=== PATIENT | male | born 1945 | race Caucasian/White ===

== ENCOUNTER 2020-01-28 07:38 | Outpatient (CLI) | payer MEDICARE, SELFPAY ==
[2020-01-28 08:06] LABS: Creatinine Urine 100.37 mg/dL (40-278)
[2020-01-28 08:07] LABS: MALB Creatinine Ratio 49.7 mg/g (0-30); Microalbumin Urine Random 49.9 mg/L
[2020-01-28 08:08] LABS: Hemoglobin A1C 6.8 % (<5.7)
[2020-01-28 09:04] LABS: Alanine Aminotransferase 40 U/L (16-63); Albumin Level 4.2 g/dL (3.4-5.0); Alkaline Phosphatase 81 U/L (46-116); Anion Gap 18.1 mmol/L (7-16); Aspartate Amino Transferase 23 U/L (15-37); Bilirubin,Total 0.5 mg/dL (0.00-1.00); Blood Urea Nitrogen 23 mg/dL (7-18); Calcium 9.4 mg/dL (8.5-10.1); Carbon Dioxide 24 mmol/L (21-32); Chloride 103 mmol/L (98-108); Cholesterol 168 mg/dL (0-200); Estimated Glomerular Filt Rate > 60; Glucose 120 mg/dL (70-99); HDL Direct 40 mg/dL (40-60); LDL Cholesterol Calculated 89 mg/dL (<130); Osmolality Calculated 296 mOsm/kg (285-295); Potassium 4.1 mmol/L (3.5-5.1); Sodium 141 mmol/L (136-145); Triglycerides 197 mg/dL (0-150)
== END 2020-01-28 07:39 | disposition home or self-care (01) ==
PROVIDERS: PCP Family Medicine; Visit Provider Family Medicine
DX: E11.9 Type 2 diabetes mellitus without complications (principal)
CPT/HCPCS: 36415; 80053; 80061; 82043; 83036

== ENCOUNTER 2020-04-17 10:45 | Outpatient (CLI) | payer MEDICARE, SELFPAY ==
--- NOTE | ~2020-04-17 | US_ITS ---
EXAMINATION: US scrotum doppler DATE: 04/17/2020 13:01 INDICATION: Other specified disorders of the male genital organs. TECHNIQUE: Grayscale and Doppler ultrasound images of the testes were obtained. COMPARISON: CT abdomen and pelvis 09/21/2019 FINDINGS: The right testis measures 3.5 x 2.2 x 2.8 cm. The left testis measures 3.8 x 1.8 x 2.2 cm. There is normal vascular flow to both testes. The right epididymis demonstrates cysts measuring up to 6 mm. The left epididymis is normal with normal vascular flow. There is no varicocele or hydrocele. IMPRESSION: 1. Small benign cysts in the right epididymis. Reviewed, dictated and finalized at location A.
[2020-04-17 11:00] LABS: Basophils Absolute Auto 0.03 K/mm3 (0.00-0.10); Basophils Percent Auto 0.4 % (0.0-1.0); Eosinophils Absolute Auto 0.21 K/mm3 (0.02-0.50); Eosinophils Percent Auto 3.1 % (1.0-6.0); Hematocrit 41.5 % (37.0-46.0); Immature Granulocyte Percent A 1.5 % (0.0-0.0); Lymphocytes Absolute Auto 1.36 K/mm3 (1.10-4.50); Lymphocytes Percent Auto 20.3 % (18.0-42.0); Mean Corpuscular HGB Conc 33.7 g/dL (32.0-36.0); Mean Corpuscular Hemoglobin 31.5 pg (27.0-31.0); Mean Corpuscular Volume 93.3 fL (78.0-102.0); Mean Platelet Volume 9.7 fl (8.7-11.0); Monocytes Absolute Auto 0.69 K/mm3 (0.10-0.90); Monocytes Percent Auto 10.3 % (2.0-11.0); Neutrophils Absolute Auto 4.3 K/mm3 (1.7-7.2); Neutrophils Percent Auto 64.4 % (50.0-70.0); Platelet Count Result 193 K/mm3 (150-420); Red Blood Count 4.45 M/mm3 (4.70-6.10); Red Cell Distribution Width 12.6 % (11.6-14.4); White Blood Count 6.7 K/mm3 (4.8-10.8)
[2020-04-17 11:40] LABS: CRP < 0.2 mg/dL (0.0-0.9)
== END 2020-04-17 10:46 | disposition home or self-care (01) ==
PROVIDERS: PCP Family Medicine; Visit Provider Family Medicine
DX: N50.89 Other specified disorders of the male genital organs (principal)
CPT/HCPCS: 36415; 76870; 85025; 86140; 93976

== ENCOUNTER 2020-05-16 07:42 | Outpatient (CLI) | payer MEDICARE, SELFPAY ==
--- NOTE | ~2020-05-16 | US_ITS ---
EXAMINATION: US aorta [facility] DATE: 05/16/2020 09:21 INDICATION: History of nicotine dependence, hypertension, diabetes, obesity, hypercholesterolemia TECHNIQUE: Grayscale, color Doppler, and pulsed Doppler images of the aorta and common iliac arteries were obtained. COMPARISON: None. FINDINGS: Maximum vascular dimensions are as follows: Proximal aorta: 2.6 cm Mid aorta: 2.4 cm Distal aorta: 2.7 cm Right common iliac artery: 1.2 cm Left common iliac artery: 1.3 cm There is no evidence of abdominal aortic aneurysm. IMPRESSION: 1. No sonographic evidence of abdominal aortic aneurysm. Reviewed, dictated and finalized at location A.
[2020-05-16 08:14] LABS: Hemoglobin A1C 6.2 % (<5.7)
== END 2020-05-16 07:43 | disposition home or self-care (01) ==
LOC: CHSIMG 07:44
PROVIDERS: Nurse Practitioner Family; PCP Family Medicine; Visit Provider Family Medicine
DX: Z87.891 Personal history of nicotine dependence (principal); E11.9 Type 2 diabetes mellitus without complications
CPT/HCPCS: 36415; 76706; 83036

== ENCOUNTER 2020-06-25 07:01 | Outpatient (CLI) | payer MEDICARE, SELFPAY ==
[2020-06-25 07:18] LABS: Basophils Absolute Auto 0.04 K/mm3 (0.00-0.10); Basophils Percent Auto 0.6 % (0.0-1.0); Eosinophils Absolute Auto 0.27 K/mm3 (0.02-0.50); Eosinophils Percent Auto 4.1 % (1.0-6.0); Hematocrit 44.5 % (37.0-46.0); Hemoglobin 14.9 g/dL (12.4-15.3); Immature Granulocyte Absolute 0.08 K/mm3 (0.00-0.00); Immature Granulocyte Percent A 1.2 % (0.0-0.0); Lymphocytes Absolute Auto 1.22 K/mm3 (1.10-4.50); Lymphocytes Percent Auto 18.6 % (18.0-42.0); Mean Corpuscular HGB Conc 33.5 g/dL (32.0-36.0); Mean Corpuscular Hemoglobin 31.6 pg (27.0-31.0); Mean Corpuscular Volume 94.5 fL (78.0-102.0); Mean Platelet Volume 10.1 fl (8.7-11.0); Monocytes Absolute Auto 0.75 K/mm3 (0.10-0.90); Monocytes Percent Auto 11.4 % (2.0-11.0); Neutrophils Absolute Auto 4.2 K/mm3 (1.7-7.2); Neutrophils Percent Auto 64.1 % (50.0-70.0); Platelet Count Result 203 K/mm3 (150-420); Red Blood Count 4.71 M/mm3 (4.70-6.10); Red Cell Distribution Width 12.4 % (11.6-14.4); White Blood Count 6.6 K/mm3 (4.8-10.8)
[2020-06-25 08:24] LABS: Alanine Aminotransferase 46 U/L (16-63); Alkaline Phosphatase 88 U/L (46-116); Anion Gap 12.2 mmol/L (7-16); Aspartate Amino Transferase 26 U/L (15-37); Bilirubin,Total 0.3 mg/dL (0.00-1.00); Blood Urea Nitrogen 16 mg/dL (7-18); Calcium 9.1 mg/dL (8.5-10.1); Carbon Dioxide 27 mmol/L (21-32); Chloride 105 mmol/L (98-108); Estimated Glomerular Filt Rate 50; Glucose 127 mg/dL (70-99); Lactate Dehydrogenase 140 U/L (85-227); Osmolality Calculated 293 mOsm/kg (285-295); Potassium 4.2 mmol/L (3.5-5.1); Sodium 140 mmol/L (136-145); Total Protein 6.7 g/dL (6.4-8.2)
== END 2020-06-25 07:02 | disposition home or self-care (01) ==
LOC: CHSLAB 07:03
PROVIDERS: PCP Family Medicine; Visit Provider Internal Medicine Hematology & Oncology
DX: C85.10 Unspecified B-cell lymphoma, unspecified site (principal)
CPT/HCPCS: 36415; 80053; 83615; 85025

== ENCOUNTER 2020-07-30 15:44 | Outpatient (CLI) | payer MEDICARE, SELFPAY ==
[2020-07-30 16:21] LABS: Basophils Absolute Auto 0.05 K/mm3 (0.00-0.10); Basophils Percent Auto 0.6 % (0.0-1.0); Eosinophils Absolute Auto 0.43 K/mm3 (0.02-0.50); Eosinophils Percent Auto 5.5 % (1.0-6.0); Hematocrit 40.5 % (37.0-46.0); Hemoglobin 13.2 g/dL (12.4-15.3); Immature Granulocyte Absolute 0.17 K/mm3 (0.00-0.00); Immature Granulocyte Percent A 2.2 % (0.0-0.0); Lymphocytes Absolute Auto 1.23 K/mm3 (1.10-4.50); Lymphocytes Percent Auto 15.8 % (18.0-42.0); Mean Corpuscular HGB Conc 32.6 g/dL (32.0-36.0); Mean Corpuscular Hemoglobin 31.1 pg (27.0-31.0); Mean Corpuscular Volume 95.3 fL (78.0-102.0); Monocytes Absolute Auto 0.74 K/mm3 (0.10-0.90); Monocytes Percent Auto 9.5 % (2.0-11.0); Neutrophils Absolute Auto 5.2 K/mm3 (1.7-7.2); Neutrophils Percent Auto 66.4 % (50.0-70.0); Platelet Count Result 340 K/mm3 (150-420); Red Blood Count 4.25 M/mm3 (4.70-6.10); Red Cell Distribution Width 12.2 % (11.6-14.4); White Blood Count 7.8 K/mm3 (4.8-10.8)
[2020-07-30 17:05] LABS: Alanine Aminotransferase 32 U/L (16-63); Alkaline Phosphatase 93 U/L (46-116); Anion Gap 7 mmol/L (8-16); Aspartate Amino Transferase 16 U/L (15-37); Bilirubin,Total 0.3 mg/dL (0.00-1.00); Blood Urea Nitrogen 16 mg/dL (7-18); Calcium 9.8 mg/dL (8.5-10.1); Carbon Dioxide 28 mmol/L (21-32); Chloride 106 mmol/L (98-108); Estimated Glomerular Filt Rate > 60; Glucose 112 mg/dL (70-99); Lactate Dehydrogenase 169 U/L (85-227); Osmolality Calculated 294 mOsm/kg (285-295); Potassium 4.2 mmol/L (3.5-5.1); Sodium 141 mmol/L (136-145); Total Protein 6.5 g/dL (6.4-8.2)
[2020-08-01 19:00] LABS: H pylori, Urea Breath NOT DETECTED (NOT DETECTED)
== END 2020-07-30 15:45 | disposition home or self-care (01) ==
PROVIDERS: PCP Family Medicine; Visit Provider Internal Medicine Hematology & Oncology
DX: K21.9 Gastro-esophageal reflux disease without esophagitis (principal); C85.10 Unspecified B-cell lymphoma, unspecified site
CPT/HCPCS: 36415; 80053; 83013; 83615; 85025

== ENCOUNTER 2020-08-20 13:48 | Outpatient (CLI) | payer MEDICARE, SELFPAY ==
--- NOTE | ~2020-08-20 | XR_ITS ---
XR abdomen/kub 1V DATE: 08/20/2020 14:08 INDICATION: Left kidney stone TECHNIQUE: AP projection, 2 views COMPARISON: 09/21/[address] abdomen pelvis FINDINGS: There are 2 calcifications overlying the mid left kidney, measuring approximately 2.5 x 5 a nd 6 x 10 mm dimension, both present on 09/21/2019 CT abdomen pelvis examination. No right renal calcification is evident. No evidence of ureteral calcification. There is a calcified pelvic phlebolith on the left. The psoas shadows are intact. No visceromegaly is evident. There is mild levoscoliosis and multilevel degenerative disc disease of the lumbar spine. There is fu sarah at L4-5 interspace. There is no evidence of bowel obstruction. There is a prominent amount of fecal material in the right colon. IMPRESSION: Stable left nephrolithiasis since 09/21/2019 Reviewed, dictated and finalized at Location A. Reviewed, dictated and finalized at location B.
== END 2020-08-20 13:49 | disposition home or self-care (01) ==
LOC: ANHIMG 13:57
PROVIDERS: PCP Family Medicine; Visit Provider Urology
DX: N20.0 Calculus of kidney (principal)
CPT/HCPCS: 74018

== ENCOUNTER 2020-09-04 07:47 | Outpatient (CLI) | payer MEDICARE, SELFPAY ==
[2020-09-04] MEDS: HEPARIN SOD FLUSH 500 UNITS/5 ML SYRINGE IV PUSH (08:03)
--- NOTE | 2020-09-04 08:07 | PC.NURSE ---
Patient here for port flush. Port flush completed. Tolerated well. Safe exit of hospital. Will call when needs port flush again. to make an appointment. Lots going on with his 's illness.
== END 2020-09-04 07:48 | disposition home or self-care (01) ==
PROVIDERS: PCP Family Medicine; Visit Provider Internal Medicine Hematology & Oncology
DX: C85.10 Unspecified B-cell lymphoma, unspecified site (principal)
CPT/HCPCS: 96523

== ENCOUNTER 2020-10-27 11:24 | Outpatient (CLI) | payer MEDICARE, SELFPAY ==
[2020-10-27 12:00] LABS: Basophils Absolute Auto 0.05 K/mm3 (0.00-0.10); Basophils Percent Auto 0.7 % (0.0-1.0); Eosinophils Absolute Auto 0.21 K/mm3 (0.02-0.50); Eosinophils Percent Auto 2.8 % (1.0-6.0); Hematocrit 44.7 % (37.0-46.0); Hemoglobin 14.5 g/dL (12.4-15.3); Immature Granulocyte Absolute 0.06 K/mm3 (0.00-0.00); Immature Granulocyte Percent A 0.8 % (0.0-0.0); Lymphocytes Absolute Auto 1.46 K/mm3 (1.10-4.50); Lymphocytes Percent Auto 19.7 % (18.0-42.0); Mean Corpuscular HGB Conc 32.4 g/dL (32.0-36.0); Mean Corpuscular Hemoglobin 30.5 pg (27.0-31.0); Mean Corpuscular Volume 93.9 fL (78.0-102.0); Mean Platelet Volume 10.3 fl (8.7-11.0); Monocytes Absolute Auto 0.67 K/mm3 (0.10-0.90); Platelet Count Result 251 K/mm3 (150-420); Red Blood Count 4.76 M/mm3 (4.70-6.10); Red Cell Distribution Width 12.8 % (11.6-14.4); White Blood Count 7.4 K/mm3 (4.8-10.8)
[2020-10-27 13:01] LABS: Alanine Aminotransferase 68 U/L (16-63); Albumin Level 4.1 g/dL (3.4-5.0); Alkaline Phosphatase 111 U/L (46-116); Anion Gap 11 mmol/L (8-16); Aspartate Amino Transferase 36 U/L (15-37); Bilirubin,Total 0.4 mg/dL (0.00-1.00); Blood Urea Nitrogen 18 mg/dL (7-18); Calcium 9.9 mg/dL (8.5-10.1); Carbon Dioxide 25 mmol/L (21-32); Chloride 104 mmol/L (98-108); Estimated Glomerular Filt Rate > 60; Glucose 126 mg/dL (70-99); Lactate Dehydrogenase 251 U/L (85-227); Osmolality Calculated 293 mOsm/kg (285-295); Potassium 5.1 mmol/L (3.5-5.1); Sodium 140 mmol/L (136-145); Total Protein 6.9 g/dL (6.4-8.2)
== END 2020-10-27 11:25 | disposition home or self-care (01) ==
PROVIDERS: PCP Family Medicine; Visit Provider Internal Medicine Hematology & Oncology
DX: C85.10 Unspecified B-cell lymphoma, unspecified site (principal)
CPT/HCPCS: 36415; 80053; 83615; 85025

== ENCOUNTER 2020-11-03 15:52 | Outpatient (CLI) | payer MEDICARE, SELFPAY ==
[2020-11-03 16:44] LABS: Hemoglobin A1C 7.3 % (<5.7)
== END 2020-11-03 15:53 | disposition home or self-care (01) ==
PROVIDERS: PCP Family Medicine; Visit Provider Family Medicine
DX: E11.9 Type 2 diabetes mellitus without complications (principal)
CPT/HCPCS: 36415; 83036

== ENCOUNTER 2020-12-13 00:14 | Outpatient (CLI) | payer MEDICARE, SELFPAY ==
[2020-12-14 00:21] LABS: SARS-CoV-2 RNA PCR Negative
== END 2020-12-13 00:15 | disposition home or self-care (01) ==
LOC: ANHCOVIDDT 00:14
PROVIDERS: PCP Family Medicine; Visit Provider Internal Medicine Gastroenterology
DX: Z01.812 Encounter for preprocedural laboratory examination (principal); Z20.822 Contact with and (suspected) exposure to COVID-19
CPT/HCPCS: C9803; U0003; U0005

== ENCOUNTER 2020-12-16 00:09 | Day surgery (SDC) | payer MEDICARE, SELFPAY ==
[2020-12-16 06:48] LABS: Glucose Point of Care 143 (65-105)
[2020-12-16 07:19] VITALS: BP 153/84; PULSE 68; RESP 18; TEMP 37; O2SAT 98
[2020-12-16 07:21] VITALS: BMI 33.6
[2020-12-16] MEDS: LACTATED RINGERS 1,000 ML 150 ML IV CONT (07:26)
--- NOTE | 2020-12-16 07:52 | WPDANESEPPF ---
Anes - Initial Pre Proc Eval Procedure: Operation Date: 12/16/20 10:00 Proposed Procedures p Screening Colonoscopy - Rafa Fuentes MD Date/Time: 12/16/20 07:52 Surgeon: Rafa Fuentes MD Pre Op Diagnosis: hx colon polyps Patient Data Age: 75 Gender: M Height: 1.75 m Weight: 103.4 kg Last Vital Signs Temp 37.0 C 12/16/20 07:19 Pulse 68 12/16/20 07:19 Resp 18 12/16/20 07:19 BP 153/84 H 12/16/20 07:19 Pulse Ox 98 12/16/20 07:19 Allergies Allergy/AdvReac Type Severity Reaction Status Date / Time No Known Allergies Allergy Verified 12/16/20 07:13 Home Medications Medication Instructions Recorded Confirmed Type finasteride 5 mg tablet 5 mg PO DAILY 01/25/20 History hydrocortisone 2.5 % topical 1 applic TOPICAL BID #453.6 gm 04/16/20 04/16/20 Rx ointment losartan 50 mg tablet See Rx Instructions .ROUTE 07/14/20 Rx .COMPLEX #90 tablet metformin 1,000 mg tablet See Rx Instructions .ROUTE 07/14/20 Rx .COMPLEX #180 tablet simvastatin 40 mg tablet See Rx Instructions .ROUTE 07/14/20 Rx .COMPLEX #90 tablet tamsulosin 0.4 mg capsule See Rx Instructions .ROUTE 07/14/20 Rx .COMPLEX #180 cap furosemide 20 mg tablet 20 mg PO QAM PRN #60 tablet 11/03/20 11/03/20 Rx amlodipine 10 mg tablet See Rx Instructions .ROUTE 11/04/20 Rx .COMPLEX #90 tablet pantoprazole 40 mg tablet,delayed See Rx Instructions .ROUTE 12/12/20 Rx release .COMPLEX #90 tablet Laboratory Tests 12/16/20 06:46 POC Capillary Glucose 143 mg/dl H mg/dl (65-105) Patient hx anesthesia problems: none Family hx anesthesia problems: none PMFSH Past Medical History Medical History B-cell lymphoma BPH (benign prostatic hyperplasia) DM2 (diabetes mellitus, type 2) GERD (gastroesophageal reflux disease) Hyperlipidemia Hypertension Osteoarthritis Overweight Surgical History Surgical History History of laminectomy History of total right knee replacement (TKR) History of umbilical hernia repair Hx of cataract surgery Family History Family History Mother Family history of type 2 diabetes mellitus Family history of obesity Brother Family history of malignant neoplasm of bone Sister Family history of type 2 diabetes mellitus Father Alcoholism Other Diabetes mellitus Hypertension Social History Social History Smoking status: Former smoker Tobacco type: cigarettes Smoking end date: 07/28/00 Additional smoking assessment comments: Quit 1999 Alcohol intake: current Substance use: never Additional living arrangements comments: . 3 adult children. 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 Anes - Eval Final PreProcedure Day of Procedure 12/16/20 07:52 Patient weight: obese Heart: regular rate and rhythm Lungs: clear to auscultation and normal air movement Airway: Mallampati scale class II Neurological: alert and oriented Last oral intake: >/= 8 hours ASA classification: III Emergent: no Anesthetic plan: proceed Anesthesia type and monitoring: general GIVS Informed Consent: The patient's anesthetic plan and its attendant risks and benefits were discussed with the patient/family/POA. Questions were solicited and answers provided to the satisfaction of the patient/family/POA.
--- NOTE | 2020-12-16 07:57 | WPDGICN ---
Assessment and Plan Assessment and plan (1) History of colon polyps: Code(s): Z86.010 - Personal history of colonic polyps Status: Acute Assessment and Plan: Patient has had colon polyps on previous examinations. Plan is for surveillance colonoscopy now and at 3 year intervals in the future. (2) B-cell lymphoma: Code(s): C85.10 - Unspecified B-cell lymphoma, unspecified site Status: Acute Assessment and Plan: Patient has been followed for lymphoma in will continue be monitored by Oncology Service. GI Consult Note Consult date/time: 12/16/20 07:57 HPI: Shreyas Dyer is a 75 year old male Presents for surveillance colonoscopy. Patient has a history of recurrent colon polyps in the past. Most recent exam was 3 years ago. Patient has had multiple colon polyps on several previous colonoscopies. Patient states his current weight appetite bowel movements are normal. He denies abdominal pain. He has had no bleeding. Past medical history is significant for lymphoma. He states he underwent an exploratory surgery in June of 2020 but no evidence of active lymphoma was identified. Also during the last year his has as well as his eldest daughter. Apparently as a consequence of COVID. Review of Systems Review of Systems: All systems reviewed & are unremarkable except as noted in HPI and below PMFSH Past Medical History Medical History (Updated 12/16/20 @ 07:59 by Rafa Fuentes MD) B-cell lymphoma BPH (benign prostatic hyperplasia) DM2 (diabetes mellitus, type 2) GERD (gastroesophageal reflux disease) Hyperlipidemia Hypertension Osteoarthritis Overweight Surgical History Surgical History History of laminectomy History of total right knee replacement (TKR) History of umbilical hernia repair Hx of cataract surgery Family History Family History Mother Family history of type 2 diabetes mellitus Family history of obesity Brother Family history of malignant neoplasm of bone Sister Family history of type 2 diabetes mellitus Father Alcoholism Other Diabetes mellitus Hypertension Social History Social History Smoking status: Former smoker Tobacco type: cigarettes Smoking end date: 07/28/00 Additional smoking assessment comments: Quit 1999 Alcohol intake: current Substance use: never Additional living arrangements comments: . 3 adult children. 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 Meds Home Medications and Allergies Home Medications Medication Instructions Recorded Confirmed Type finasteride 5 mg tablet 5 mg PO DAILY 01/25/20 History hydrocortisone 2.5 % topical 1 applic TOPICAL BID #453.6 gm 04/16/20 04/16/20 Rx ointment losartan 50 mg tablet See Rx Instructions .ROUTE 07/14/20 Rx .COMPLEX #90 tablet metformin 1,000 mg tablet See Rx Instructions .ROUTE 07/14/20 Rx .COMPLEX #180 tablet simvastatin 40 mg tablet See Rx Instructions .ROUTE 07/14/20 Rx .COMPLEX #90 tablet tamsulosin 0.4 mg capsule See Rx Instructions .ROUTE 07/14/20 Rx .COMPLEX #180 cap furosemide 20 mg tablet 20 mg PO QAM PRN #60 tablet 11/03/20 11/03/20 Rx amlodipine 10 mg tablet See Rx Instructions .ROUTE 11/04/20 Rx .COMPLEX #90 tablet pantoprazole 40 mg tablet,delayed See Rx Instructions .ROUTE 12/12/20 Rx release .COMPLEX #90 tablet Allergies Allergy/AdvReac Type Severity Reaction Status Date / Time No Known Allergies Allergy Verified 12/16/20 07:13 Vital Signs Vital Signs - 24 hr 12/16/20 07:19 Temperature 98.6 F Pulse Rate 68 Respiratory Rate 18 Blood Pressure 153/84 H Pulse Oximetry 98 Exam Narrative: Exam Narrative: Physical exam reveals patient to be alert. Vital signs stable.
[2020-12-16 08:23] VITALS: BP 120/66; PULSE 57; RESP 18; O2SAT 98
[2020-12-16 08:33] VITALS: BP 123/82; PULSE 62; RESP 18; O2SAT 96
[2020-12-16 08:43] VITALS: BP 149/83; PULSE 55; RESP 18; O2SAT 97
== END 2020-12-16 09:16 | disposition home or self-care (01) ==
PROVIDERS: PCP Family Medicine; Visit Provider Internal Medicine Gastroenterology
PROC: 0DJD8ZZ Inspection of Lower Intestinal Tract, Via Natural or Artificial Opening Endoscopic (ICD-10-PCS; CPT 45378; principal; 2020-12-16 10:00)
DX: Z12.11 Encounter for screening for malignant neoplasm of colon (principal); D12.4 Benign neoplasm of descending colon; K63.5 Polyp of colon; K64.8 Other hemorrhoids; K57.30 Diverticulosis of large intestine without perforation or abscess without bleeding; C85.10 Unspecified B-cell lymphoma, unspecified site; N40.0 Benign prostatic hyperplasia without lower urinary tract symptoms; E11.9 Type 2 diabetes mellitus without complications; I10 Essential (primary) hypertension; E78.5 Hyperlipidemia, unspecified; K21.9 Gastro-esophageal reflux disease without esophagitis; M19.90 Unspecified osteoarthritis, unspecified site; Z87.891 Personal history of nicotine dependence; Z79.84 Long term (current) use of oral hypoglycemic drugs
CPT/HCPCS: 45385; 88305; J2001; J2704; J7120

== ENCOUNTER 2021-01-13 09:22 | Outpatient (CLI) | payer MEDICARE, SELFPAY ==
[2021-01-13] MEDS: HEPARIN SOD FLUSH 500 UNITS/5 ML SYRINGE IV PUSH (09:44)
== END 2021-01-13 09:23 | disposition home or self-care (01) ==
PROVIDERS: PCP Family Medicine; Visit Provider Internal Medicine Hematology & Oncology
DX: Z45.2 Encounter for adjustment and management of vascular access device (principal); C85.10 Unspecified B-cell lymphoma, unspecified site
CPT/HCPCS: 96523

== ENCOUNTER 2021-05-05 07:39 | Outpatient (CLI) | payer MEDICARE, SELFPAY ==
[2021-05-05 07:49] LABS: Basophils Absolute Auto 0.04 K/mm3 (0.00-0.10); Basophils Percent Auto 0.6 % (0.0-1.0); Eosinophils Absolute Auto 0.23 K/mm3 (0.02-0.50); Eosinophils Percent Auto 3.6 % (1.0-6.0); Hematocrit 40.8 % (37.0-46.0); Hemoglobin 13.5 g/dL (12.4-15.3); Immature Granulocyte Absolute 0.07 K/mm3 (0.00-0.00); Immature Granulocyte Percent A 1.1 % (0.0-0.0); Lymphocytes Absolute Auto 1.59 K/mm3 (1.10-4.50); Lymphocytes Percent Auto 24.8 % (18.0-42.0); Mean Corpuscular HGB Conc 33.1 g/dL (32.0-36.0); Mean Corpuscular Hemoglobin 30.8 pg (27.0-31.0); Mean Corpuscular Volume 93.2 fL (78.0-102.0); Mean Platelet Volume 10.1 fl (8.7-11.0); Monocytes Absolute Auto 0.64 K/mm3 (0.10-0.90); Neutrophils Absolute Auto 3.8 K/mm3 (1.7-7.2); Neutrophils Percent Auto 59.9 % (50.0-70.0); Platelet Count Result 197 K/mm3 (150-420); Red Blood Count 4.38 M/mm3 (4.70-6.10); Red Cell Distribution Width 12.3 % (11.6-14.4); White Blood Count 6.4 K/mm3 (4.8-10.8)
[2021-05-05 08:23] LABS: Alanine Aminotransferase 45 U/L (16-63); Albumin Level 3.9 g/dL (3.4-5.0); Alkaline Phosphatase 91 U/L (46-116); Anion Gap 9 mmol/L (8-16); Aspartate Amino Transferase 20 U/L (15-37); Bilirubin,Total 0.4 mg/dL (0.00-1.00); Blood Urea Nitrogen 18 mg/dL (7-18); Calcium 9.6 mg/dL (8.5-10.1); Carbon Dioxide 26 mmol/L (21-32); Chloride 107 mmol/L (98-108); Estimated Glomerular Filt Rate > 60; Glucose 138 mg/dL (70-99); Lactate Dehydrogenase 147 U/L (85-227); Osmolality Calculated 297 mOsm/kg (285-295); Potassium 3.9 mmol/L (3.5-5.1); Sodium 142 mmol/L (136-145); Total Protein 6.6 g/dL (6.4-8.2)
== END 2021-05-05 07:40 | disposition home or self-care (01) ==
LOC: CHSLAB 07:40
PROVIDERS: PCP Family Medicine; Visit Provider Internal Medicine Hematology & Oncology
DX: C85.10 Unspecified B-cell lymphoma, unspecified site (principal)
CPT/HCPCS: 36415; 80053; 83615; 85025

== ENCOUNTER 2021-07-01 08:35 | Outpatient (CLI) | payer MEDICARE, SELFPAY ==
--- NOTE | ~2021-07-01 | XR_ITS ---
XR lumbar spine 6V w bending DATE: 07/01/2021 09:06 INDICATION: Low back pain, muscle spasms TECHNIQUE: AP, lateral, bilateral oblique views. Flexion and extension lateral views. COMPARISON: 09/21/2019 CT abdomen pelvis FINDINGS: There is straightening of the lumbar spine on lateral view with loss of lumbar lordosis. There is mild rotatory levoscoliosis of the lumbar spine. Normal alignment of lumbar spine with no evidence of instability on flexion or extension. There is moderately severe degenerative disc disease at L1-2 and L2-3 and severe degenerative disease at L3-4 and L5-S1. There is fusion at the interspace at L4-5. No fracture or bone destruction is evident. The sacroiliac joints appear normal. There is fusiform ectasia of the distal abdominal aorta. Several calcifications overlie the left kidn ey, consistent with left nephrolithiasis documented on 09/21/2019 CT abdomen pelvis examination. IMPRESSION: Multilevel degenerative disc disease, most severe at L3-4 and L5-S1 Fusion at the L4-5 interspace Reviewed, dictated and finalized at location A.
== END 2021-07-01 08:36 | disposition home or self-care (01) ==
LOC: CHSIMG 08:37
PROVIDERS: PCP Family Medicine; Visit Provider Family Medicine
DX: M54.5 Low back pain (principal); M41.50 Other secondary scoliosis, site unspecified; M47.9 Spondylosis, unspecified
CPT/HCPCS: 72114

== ENCOUNTER 2021-10-20 13:42 | Outpatient (CLI) | payer MEDICARE, SELFPAY ==
[2021-10-20 13:58] LABS: Basophils Absolute Auto 0.05 K/mm3 (0.00-0.10); Basophils Percent Auto 0.7 % (0.0-1.0); Eosinophils Absolute Auto 0.19 K/mm3 (0.02-0.50); Eosinophils Percent Auto 2.7 % (1.0-6.0); Hematocrit 41.1 % (37.0-46.0); Hemoglobin 13.7 g/dL (12.4-15.3); Immature Granulocyte Absolute 0.05 K/mm3 (0.00-0.00); Immature Granulocyte Percent A 0.7 % (0.0-0.0); Lymphocytes Absolute Auto 1.84 K/mm3 (1.10-4.50); Lymphocytes Percent Auto 26.2 % (18.0-42.0); Mean Corpuscular HGB Conc 33.3 g/dL (32.0-36.0); Mean Corpuscular Hemoglobin 31.9 pg (27.0-31.0); Mean Corpuscular Volume 95.6 fL (78.0-102.0); Mean Platelet Volume 10.2 fl (8.7-11.0); Monocytes Absolute Auto 0.66 K/mm3 (0.10-0.90); Monocytes Percent Auto 9.4 % (2.0-11.0); Neutrophils Absolute Auto 4.2 K/mm3 (1.7-7.2); Neutrophils Percent Auto 60.3 % (50.0-70.0); Platelet Count Result 197 K/mm3 (150-420); Red Cell Distribution Width 12.3 % (11.6-14.4)
[2021-10-20 14:39] LABS: Alanine Aminotransferase 48 U/L (16-63); Albumin Level 3.8 g/dL (3.4-5.0); Alkaline Phosphatase 84 U/L (46-116); Anion Gap 13 mmol/L (8-16); Aspartate Amino Transferase 20 U/L (15-37); Bilirubin,Total 0.4 mg/dL (0.00-1.00); Blood Urea Nitrogen 14 mg/dL (7-18); Calcium 8.5 mg/dL (8.5-10.1); Carbon Dioxide 25 mmol/L (21-32); Chloride 108 mmol/L (98-108); Estimated Glomerular Filt Rate 55; Glucose 151 mg/dL (70-99); Lactate Dehydrogenase 153 U/L (85-227); Osmolality Calculated 305 mOsm/kg (285-295); Potassium 3.5 mmol/L (3.5-5.1); Sodium 146 mmol/L (136-145); Total Protein 6.4 g/dL (6.4-8.2)
== END 2021-10-20 13:43 | disposition home or self-care (01) ==
LOC: CHSLAB 13:44
PROVIDERS: PCP Family Medicine; Visit Provider Internal Medicine Hematology & Oncology
DX: C85.18 Unspecified B-cell lymphoma, lymph nodes of multiple sites (principal)
CPT/HCPCS: 36415; 80053; 83615; 85025

== ENCOUNTER 2022-01-21 08:50 | Outpatient (CLI) | payer MEDICARE, SELFPAY ==
[2022-01-21 09:09] VITALS: BP 130/74; PULSE 80; RESP 16; TEMP 36.3; O2SAT 98; BMI 29.5
--- NOTE | 2022-01-21 09:13 | PC.NURSE ---
Patient here for monthly port flush. No concerns voiced. Port flush administered see JAN. Tolerated well. Safe exit of hospital. Will return next month-patient will call few days ahead for appointment.
[2022-01-21] MEDS: HEPARIN SODIUM LOCK FLUSH 500 UNITS/5 ML SYRINGE IV PUSH (09:16)
== END 2022-01-21 08:51 | disposition home or self-care (01) ==
LOC: CHSLAB 08:55 → CHSTREATRM 09:01
PROVIDERS: PCP Family Medicine; Visit Provider Internal Medicine Hematology & Oncology
DX: Z45.2 Encounter for adjustment and management of vascular access device (principal); C85.10 Unspecified B-cell lymphoma, unspecified site
CPT/HCPCS: 96523

== ENCOUNTER 2022-02-08 07:43 | Outpatient (CLI) | payer MEDICARE, SELFPAY ==
--- NOTE | 2022-02-08 08:30 | EST_ITS ---
Patient Info Name: Shreyas Dyer Age: 76 years : 1945 Gender: Male Ht: 69 in Wt: 228 lbs BSA: 2.28 m2 HR: 49 bpm BP: 137 / 77 mmHg Heart Rhythm: Bradycardia Technical Quality: Excellent Exam Date: 02/08/2022 8:41 AM Exam Location: [facility] Patient Status: Outpatient Admit Date: 02/08/2022 Staff Ordering Physician: Geovany Jackson DO Attending Provider: Geovany Jackson DO Exercise Technologist: Hawa Lim CRT Exercise Physician: Kat Marin CEP Exam Type: CA stress radha w NM Study Info Indications SOB - A nuclear stress test was performed. History/Risk Factors Hypertension: Yes Diabetes Mellitus: Yes Tobacco Use: Current - Frequency Unknown History/Risk Factors HTN, Diabetes, Current Smoker. Summary 1. 1. Negative lexiscan stress test for ischemic ST changes by ECG criteria. 2. 2. Stable hemodynamics throughout the test. 3. 3. Nuclear scan to follow and will be reported separately. Please correlate with it. Protocol: LEXISCAN Stress ECG Details Stage: REST Duration (min): 1 min : 21 sec HR (bpm): 49 SBP (mmHg): 137 DBP (mmHg): 77 Stage: REST Duration (min): 6 min : 25 sec HR (bpm): 53 SBP (mmHg): 137 DBP (mmHg): 77 Stage: STAGE 1 Duration (min): 0 min : 6 sec HR (bpm): 56 SBP (mmHg): 137 DBP (mmHg): 77 Stage: RECOVERY Duration (min): 0 min : 54 sec HR (bpm): 60 SBP (mmHg): 137 DBP (mmHg): 77 Stage: RECOVERY Duration (min): 1 min : 54 sec HR (bpm): 75 SBP (mmHg): 137 DBP (mmHg): 77 Stage: RECOVERY Duration (min): 2 min : 54 sec HR (bpm): 67 SBP (mmHg): 134 DBP (mmHg): 82 Stage: RECOVERY Duration (min): 3 min : 54 sec HR (bpm): 64 SBP (mmHg): 132 DBP (mmHg): 80 Stage: RECOVERY Duration (min): 4 min : 54 sec HR (bpm): 60 SBP (mmHg): 126 DBP (mmHg): 80 Stage: RECOVERY Duration (min): 5 min : 54 sec HR (bpm): 60 SBP (mmHg): 126 DBP (mmHg): 78 Stage: RECOVERY Duration (min): 6 min : 10 sec HR (bpm): 60 SBP (mmHg): 126 DBP (mmHg): 78 Rest HR: 53 bpm Peak HR: 75 bpm Rest Sys BP: 137 mmHg Peak Sys BP: 134 mmHg Max Pred HR: 146 bpm % Max Pred HR: 51 % Target HR: 124 bpm Max RPP: 10,050 bpm*mmHg BP Response: Normal blood pressure response Termination Reason: Completed Protocol Cardiac Symptoms: None Total Time: 0 min : 6 sec Rest Adrian BP: 77 mmHg Peak Adrian BP: 82 mmHg Total Dose: 0.4 mg Resting ECG Sinus bradycardia, IRBBB. Stress ECG No abnormal ST/T wave changes with exercise. Arrhythmias Occasional PVCs. Report Signatures
--- NOTE | 2022-02-08 10:44 | WPDCARIOSTRE ---
Nuclear Stress Test INDICATIONS Indications: BUTLER PROCEDURE Procedure Performed: Myocardial Perf Spect-Multi Procedure: Patient underwent a lexiscan stress test and immediately was injected with 34.4 mCi of cardiolyte. Multiple tomographic images were obtained. These are of good quality. There is evidence of moderate size, severe inferior perfusion defect during stress imaging. A separate resting images were obtained after patient was injected with 10.3 mCi of cardiolyte. Multiple tomographic images were obtained. These are of good quality. There is evidence of small size, mild inferior perfusion defect during rest imaging. CONCLUSION Conclusion: 1. Abnormal myocardial perfusion imaging demonstrating moderate size, severe inferior perfusion defect during stress imaging suggesting reversible ischemia. 2. Left ventriculogram demonstrates normal measured ejection fraction of 62% with no wall motion abnormalities. 3. TID score is normal at 1.03.
== END 2022-02-08 07:44 | disposition home or self-care (01) ==
LOC: CHSIMG 07:45
PROVIDERS: PCP Family Medicine; Visit Provider Family Medicine
DX: R68.89 Other general symptoms and signs (principal); R06.02 Shortness of breath
CPT/HCPCS: 78452; 93017; A9502; J2785

== ENCOUNTER 2022-02-09 10:46 | Outpatient (CLI) | payer MEDICARE, SELFPAY ==
--- NOTE | ~2022-02-09 | US_ITS ---
EXAMINATION: US arterial ankle brachial ind DATE: 02/09/2022 11:14 INDICATION: Peripheral arterial disease with intermittent claudication. Type 2 diabetes with hyperten sarah. TECHNIQUE: Segmental pressures and plethysmographic and Doppler waveforms of the brachial and lower e xtremity arteries were obtained. COMPARISON: 01/16/2019 FINDINGS: Right and left brachial artery pressures of 130 mm Hg and 118 mm Hg, respectively, are concordant (no rmal difference <= 30 mmHg). The right ankle-brachial index (DIONNA) is 1.15 (normal >= 0.9-1.0). The right great toe-brachial index (TBI) is 0.90 (normal >= 0.65). Arterial Doppler waveforms are biphasic at both the right posterior t ibial and dorsalis pedis arteries. The left DIONNA is 1.15. The left TBI is 1.14. Arterial Doppler waveforms are biphasic with brisk systol ic upstrokes at both the left posterior tibial and dorsalis pedis arteries. IMPRESSION: 1. No significant arterial occlusive disease to either lower limb with normal bilateral ABIs and TBIs Reviewed, dictated and finalized at location A. IMPRESSION: 1. No significant arterial occlusive disease to either lower limb with normal b ilateral ABIs and TBIs
== END 2022-02-09 10:47 | disposition home or self-care (01) ==
LOC: CHSIMG 10:48
PROVIDERS: PCP Family Medicine; Visit Provider Family Medicine
DX: E11.59 Type 2 diabetes mellitus with other circulatory complications (principal); I15.2 Hypertension secondary to endocrine disorders
CPT/HCPCS: 93922

== ENCOUNTER 2022-02-26 07:04 | Outpatient (CLI) | payer MEDICARE, SELFPAY ==
[2022-02-26 07:25] LABS: Basophils Absolute Auto 0.05 K/mm3 (0.00-0.10); Basophils Percent Auto 0.6 % (0.0-1.0); Eosinophils Absolute Auto 0.35 K/mm3 (0.02-0.50); Eosinophils Percent Auto 4.5 % (1.0-6.0); Hematocrit 44.5 % (37.0-46.0); Hemoglobin 14.2 g/dL (12.4-15.3); Immature Granulocyte Absolute 0.08 K/mm3 (0.00-0.00); Lymphocytes Absolute Auto 1.73 K/mm3 (1.10-4.50); Lymphocytes Percent Auto 22.5 % (18.0-42.0); Mean Corpuscular HGB Conc 31.9 g/dL (32.0-36.0); Mean Corpuscular Volume 97.2 fL (78.0-102.0); Mean Platelet Volume 9.8 fl (8.7-11.0); Monocytes Percent Auto 9.1 % (2.0-11.0); Neutrophils Absolute Auto 4.8 K/mm3 (1.7-7.2); Neutrophils Percent Auto 62.3 % (50.0-70.0); Platelet Count Result 228 K/mm3 (150-420); Red Blood Count 4.58 M/mm3 (4.70-6.10); Red Cell Distribution Width 12.4 % (11.6-14.4); White Blood Count 7.7 K/mm3 (4.8-10.8)
[2022-02-26 07:39] LABS: INR 1.1; Prothrombin Time 11.4 Seconds (9.50-12.10)
[2022-02-26 08:01] LABS: Alanine Aminotransferase 49 U/L (16-63); Albumin Level 4.2 g/dL (3.4-5.0); Alkaline Phosphatase 81 U/L (46-116); Anion Gap 6 mmol/L (8-16); Aspartate Amino Transferase 47 U/L (15-37); Bilirubin,Total 0.4 mg/dL (0.00-1.00); Blood Urea Nitrogen 16 mg/dL (7-18); Calcium 9.7 mg/dL (8.5-10.1); Carbon Dioxide 30 mmol/L (21-32); Chloride 105 mmol/L (98-108); Estimated Glomerular Filt Rate > 60; Glucose 149 mg/dL (70-99); Osmolality Calculated 296 mOsm/kg (285-295); Potassium 4.3 mmol/L (3.5-5.1); Sodium 141 mmol/L (136-145); Total Protein 6.9 g/dL (6.4-8.2)
== END 2022-02-26 07:05 | disposition home or self-care (01) ==
LOC: CHSLAB 07:07
PROVIDERS: PCP Family Medicine; Visit Provider Internal Medicine Cardiovascular Disease
DX: R94.39 Abnormal result of other cardiovascular function study (principal); Z01.810 Encounter for preprocedural cardiovascular examination; R07.9 Chest pain, unspecified
CPT/HCPCS: 36415; 80053; 85025; 85610

== ENCOUNTER 2022-03-02 01:32 | Day surgery (SDC) | payer MEDICARE, SELFPAY ==
[2022-03-01 18:23] VITALS: BMI 32.1
[2022-03-02] VITALS (16 sets, daily range): BP systolic 128–160; BP diastolic 74–95; PULSE 57–65; RESP 12–18; O2SAT 99; BMI 33.0
[2022-03-02 08:35] LABS: Basophils Absolute Auto 0.1 K/mm3 (0.0-0.1); Basophils Percent Auto 0.9 % (0.2-1.2); Eosinophils Absolute Auto 0.3 K/mm3 (0-0.3); Eosinophils Percent Auto 3.8 % (0-4.4); Hematocrit 41.7 % (42.0-52.0); Hemoglobin 13.9 g/dL (14.0-18.0); Immature Granulocyte Absolute 0.09 K/mm3 (0.00-0.031); Immature Granulocyte Percent A 1.3 % (0-0.5); Lymphocytes Absolute Auto 1.77 K/mm3 (0.9-3.2); Lymphocytes Percent Auto 25.1 % (18.3-44.2); Mean Corpuscular HGB Conc 33.3 g/dl (32-36); Mean Corpuscular Hemoglobin 31.7 pg (26-34); Mean Corpuscular Volume 95.2 fl (80-100); Mean Platelet Volume 10.2 fl (7.4-10.4); Monocytes Absolute Auto 0.7 K/mm3 (0.1-0.6); Monocytes Percent Auto 9.4 % (2.6-8.5); Neutrophils Absolute Auto 4.2 K/mm3 (1.3-6.7); Neutrophils Percent Auto 59.5 % (45.5-73.1); Platelet Count Result 227 k/mm3 (150-375); Red Blood Count 4.38 M/mm3 (4.6-6.20); Red Cell Distribution Width 12.5 % (11.5-14.5)
[2022-03-02 08:44] LABS: INR 1.1; Prothrombin Time 14.2 Seconds (11.1-14.7)
[2022-03-02 08:46] LABS: Alanine Aminotransferase 42 U/L (4-50); Albumin Level 4.3 g/dL (3.5-5.1); Alkaline Phosphatase 75 U/L (38-126); Anion Gap 9 mmol/L (8-16); Aspartate Amino Transferase 38 U/L (17-59); Bilirubin,Total 0.6 mg/dL (0.2-1.3); Blood Urea Nitrogen 17 mg/dL (9-20); Calcium 9.4 mg/dL (8.4-10.2); Carbon Dioxide 22 mmol/L (22-30); Chloride 109 mmol/L (98-107); Estimated CRCL calculation 74 ml/min; Estimated Glomerular Filt Rate > 60; Glucose 173 mg/dL (65-110); Potassium 4.3 mmol/L (3.4-5.0); Sodium 140 mmol/L (137-145)
--- NOTE | 2022-03-02 08:57 | WPDMODSED ---
Moderate Sedation Note-Pt Data Patient Data Allergies Allergy/AdvReac Type Severity Reaction Status Date / Time No Known Allergies Allergy Verified 03/02/22 08:35 Home Medications Medication Instructions Recorded Confirmed Type simvastatin 40 mg tablet See Rx Instructions .ROUTE 05/04/21 03/01/22 Rx .COMPLEX #90 tablet losartan 50 mg tablet See Rx Instructions .ROUTE 05/11/21 03/01/22 Rx .COMPLEX #90 tablet tamsulosin 0.4 mg capsule See Rx Instructions .ROUTE 05/11/21 03/01/22 Rx .COMPLEX #180 cap furosemide 20 mg tablet See Rx Instructions .ROUTE 06/08/21 03/01/22 Rx .COMPLEX #90 tablet metformin 1,000 mg tablet See Rx Instructions .ROUTE 06/08/21 03/01/22 Rx .COMPLEX #180 tablet pantoprazole 40 mg tablet,delayed See Rx Instructions .ROUTE 06/15/21 03/01/22 Rx release .COMPLEX #90 tablet cyclobenzaprine 10 mg tablet 10 mg PO TID PRN #30 tablet 07/01/21 03/01/22 Rx sildenafil 50 mg tablet 50 mg PO DAILY PRN #30 tablet 07/01/21 07/01/21 Rx amlodipine 10 mg tablet 10 mg PO DAILY tablet 07/17/21 03/01/22 History finasteride 5 mg tablet See Rx Instructions .ROUTE 08/03/21 03/01/22 Rx .COMPLEX #90 tablet blood sugar diagnostic #100 ea 02/01/22 03/01/22 Rx acetaminophen 1,000 mg PO DAILY 03/01/22 03/01/22 History aspirin 81 mg PO DAILY 03/01/22 03/01/22 History hydrocortisone 1 applic TOPICAL BID PRN 03/01/22 03/01/22 History Current Medications: Active Medications Sodium Chloride (Normal Saline Iv) 500 mls @ 100 mls/hr IV CONT .Q5H EDMOND Sedation/Anesthesia: No previous sedation/anesthesia problems (including family history). [facility] Past Medical History Medical History B-cell lymphoma BPH (benign prostatic hyperplasia) DM2 (diabetes mellitus, type 2) Erectile dysfunction GERD (gastroesophageal reflux disease) Hyperlipidemia Hypertension Osteoarthritis Overweight Surgical History Surgical History History of laminectomy History of total right knee replacement (TKR) History of umbilical hernia repair Hx of cataract surgery Family History Family History Mother Family history of type 2 diabetes mellitus Family history of obesity Brother Family history of malignant neoplasm of bone Sister Family history of type 2 diabetes mellitus Father Alcoholism Other Diabetes mellitus Hypertension Social History Social History Smoking status: Former smoker Tobacco type: cigarettes Second hand tobacco smoke exposure: Yes Additional smoking assessment comments: smoked 1 PPD for over 38 years, quit 22 years ago Alcohol intake: current Alcohol use details: on rare occasion, less than 10 drinks in the last year Substance use: never Living arrangements: alone Additional living arrangements comments: . 3 adult children. 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 Spiritual care concerns: No Mod Sed Physical Exam Physical Exam Pre Procedural Exam: Normal: Airway Hours since solid foods: 10 Hours since liquid intake: 10 Mallampati Classification: class II Internal Medicine - PN: Obj Da Vital Signs Vital Signs: Vital Signs - 24 hr 03/02/22 08:37 Respiratory Rate 16 Blood Pressure 137/75 Pulse Oximetry 99 Meds/Results Medications: Active Medications Generic Name Dose Route Start Last Admin Trade Name Freq PRN Reason Stop Dose Admin Sodium Chloride 500 mls @ 100 mls/hr 03/02/22 08:00 Normal Saline Iv IV CONT .Q5H EDMOND Labs CBC & Chem 7: 03/02/22 08:27 03/02/22 08:27 Labs: Laboratory Results - last 24 hr 03/02/22 03/02/22 03/02/22 08:27 08:27 08:27 WBC 7.0 RBC 4.38 L Hgb 13.9 L Hct 41.7 L MCV 95.2 MCH 31.7 MCHC 33.3 RDW
--- NOTE | 2022-03-02 08:57 | WPDHPUPDATE1 ---
History and Physical Update Update Date/Time: 03/02/22 08:57 History and Physical has been reviewed, including an updated exam of the patient. There are NO changes in the patient's condition. Risks, benefits, and alternatives have been discussed and questions answered. Patient agrees to proceed with procedure.
--- NOTE | 2022-03-02 11:45 | WPDCARDPROC ---
Cardiac Cath Procedure Note Date of procedure:: 03/02/22 Performing physician:: Doug Gracia MD Procedure Procedure note:: CARDIAC CATHETERIZATION AND PERCUTANEOUS CORONARY INTERVENTION REPORT DATE OF PROCEDURE: 03/02/2022 INDICATION FOR PROCEDURE: angina, abnormal MPI BRIEF CLINICAL HISTORY: 76-year-old male with hypertension, diabetes mellitus, dyslipidemia. Patient was referred by Dr. Uriostegui for cardiac catheterization in the setting of chest pain, dyspnea and abnormal MPI. Patient had MPI done on 02/08/2022 which reportedly showed normal LVEF, moderate size, severe inferior perfusion defect. Benefits and risks of the procedure were discussed with the patient in depth, and informed consent was obtained prior to the procedure. Risks of the procedure include but are not limited to vascular complications including groin hematoma, retroperitoneal bleed, vessel perforation; periprocedural FL, cardiac arrhythmias, stroke, contrast induced nephropathy, and . After discussing all the benefits, risks and alternatives, patient was willing to proceed with the procedure. PROCEDURES PERFORMED: 1. Left heart catheterization- Selective left and right coronary angiogram; left ventriculogram and hemodynamic assessment 2. Percutaneous coronary intervention- a) IFR of mid LAD intermediate degree stenosis; b) IFR guided PCI -balloon angioplasty and stenting of mid LAD using a 2.75 x 26 mm Biotronik sirolimus eluting stent 3. Selective right common femoral angiogram and deployment of Angio-Seal hemostatic device 4. Moderate sedation-CPT code 49718 MODERATE SEDATION: Midazolam 2 mg; fentanyl 50 mcg. Start time 1041 , Stop time 1138 ; Total [id number] time 57 minutes; FLOR Lau was trained observer for moderate sedation. ACCESS SITE: Right common femoral artery PROCEDURE NOTE: After obtaining informed consent, patient was brought to catheterization lab and prepped and draped in a usual sterile manner. After local anesthesia with lidocaine, right common femoral artery access was taken with micropuncture needle followed by insertion of a 5 Martiniquais sheath. Selective left and right coronary angiogram was performed using 5 Martiniquais JL4 and JR4 catheters respectively. Orthogonal views were taken. Next, a 5 Martiniquais pigtail catheter was advanced in the LV cavity and was flushed with normal saline. LV pressure measurement was performed. After this, left ventriculogram was performed. The catheter was flushed again, and gradient across the aortic valve was measured on the pullback of the catheter. Selective right common femoral angiogram was performed after PCI followed by successful deployment of Angio-Seal vascular closure device. Patient tolerated procedure well without any immediate procedure related complications. FINDINGS: LEFT MAIN CORONARY: the left main coronary artery is a medium to large caliber vessel, no significant focal stenosis. The vessel trifurcates into LAD, ramus intermedius and left circumflex branches. LEFT ANTERIOR DESCENDING ARTERY: The LAD is a medium caliber vessel, tapers distally and reaches LV apex. Is moderate diffuse disease in the mid segment with focal 50-70% stenosis, best visualized in the RAO17, CAU 21. No significant focal stenosis is seen in the diagonal branches. RAMUS INTERMEDIUS: Medium caliber vessel, no significant focal stenosis. LEFT CIRCUMFLEX ARTERY: Medium caliber vessel, gives rise to medium caliber OM branches without significant focal stenosis. RIGHT CORONARY ARTERY: Medium caliber vessel, minor plaque is in the proximal segment. The vessel is tortuous in the distal segment. It gives rise to small caliber PDA branch and diminutive PL branch. Sluggish blood flow is seen in the RCA. LEFT VENTRICULOGRAM: Preserved LV systolic function, ejection fraction about 60%. LVEDP 10 mmHg. RIGHT COMMON FEMORAL ARTERY: Patent INTERVENTION REPORT: Based on patient's clinical significance and angiographic find
--- NOTE | 2022-03-02 11:57 | ECG_ITS ---
Measurements Intervals [place] Rate: 63 P: 61 PA: 173 QRS: 0 QRSD: 101 T: 29 QT: 385 QTc: 397 Interpretive Statements SINUS RHYTHM NO PREVIOUS ECG AVAILABLE FOR COMPARISON Electronically Signed On 03-02-2022 12:10:53 CDT by Doug Gracia M.D.
--- NOTE | 2022-03-02 16:57 | SUR.PHASEII ---
i'v d/c tip intact. patient d/c information given by april lozano. with patient's friend at bedside. written instructions given. all questions and concerns address. brilinta samples given to patient by luis enrique salazar np. patient able to ambulate in room with out difficulty and change clothes. site wnl. patient transferred by wheel chair to personal vehicle.
== END 2022-03-02 16:58 | disposition home or self-care (01) ==
PROVIDERS: PCP Family Medicine; Visit Provider Internal Medicine Cardiovascular Disease
PROC: 4A023N7 Measurement of Cardiac Sampling and Pressure, Left Heart, Percutaneous Approach (ICD-10-PCS; CPT 93452; principal; 2022-03-02 09:30)
PROC: 4A033BC Measurement of Arterial Pressure, Coronary, Percutaneous Approach (ICD-10-PCS; CPT 93571; 2022-03-02 09:30)
DX: I25.10 Atherosclerotic heart disease of native coronary artery without angina pectoris (principal); R94.39 Abnormal result of other cardiovascular function study; R07.9 Chest pain, unspecified; R06.00 Dyspnea, unspecified; I10 Essential (primary) hypertension; E78.5 Hyperlipidemia, unspecified; E11.9 Type 2 diabetes mellitus without complications; N40.0 Benign prostatic hyperplasia without lower urinary tract symptoms; Z85.72 Personal history of non-Hodgkin lymphomas; K21.9 Gastro-esophageal reflux disease without esophagitis; Z79.84 Long term (current) use of oral hypoglycemic drugs; Z87.891 Personal history of nicotine dependence
CPT/HCPCS: 36415; 80053; 85025; 85610; 93005; 93458; 93571; A9270; C1725; C1760; C1769; C1874; C1887; C1894; C9600; G0269; J0583; J1644; J2250; J3010; J7040

== ENCOUNTER 2022-04-27 11:12 | Outpatient (CLI) | payer MEDICARE, SELFPAY ==
[2022-04-27 11:33] LABS: Basophils Absolute Auto 0.04 K/mm3 (0.00-0.10); Basophils Percent Auto 0.6 % (0.0-1.0); Eosinophils Percent Auto 2.9 % (1.0-6.0); Hematocrit 39.4 % (37.0-46.0); Immature Granulocyte Absolute 0.07 K/mm3 (0.00-0.00); Lymphocytes Percent Auto 23.1 % (18.0-42.0); Mean Corpuscular Hemoglobin 31.4 pg (27.0-31.0); Mean Corpuscular Volume 95.2 fL (78.0-102.0); Mean Platelet Volume 10.1 fl (8.7-11.0); Monocytes Absolute Auto 0.57 K/mm3 (0.10-0.90); Monocytes Percent Auto 8.2 % (2.0-11.0); Neutrophils Absolute Auto 4.5 K/mm3 (1.7-7.2); Neutrophils Percent Auto 64.2 % (50.0-70.0); Platelet Count Result 222 K/mm3 (150-420); Red Blood Count 4.14 M/mm3 (4.70-6.10); Red Cell Distribution Width 12.5 % (11.6-14.4); White Blood Count 6.9 K/mm3 (4.8-10.8)
[2022-04-27 12:20] LABS: Alanine Aminotransferase 37 U/L (16-63); Albumin Level 3.9 g/dL (3.4-5.0); Alkaline Phosphatase 99 U/L (46-116); Anion Gap 13 mmol/L (8-16); Aspartate Amino Transferase 18 U/L (15-37); Bilirubin,Total 0.4 mg/dL (0.00-1.00); Blood Urea Nitrogen 20 mg/dL (7-18); Calcium 9.6 mg/dL (8.5-10.1); Carbon Dioxide 22 mmol/L (21-32); Chloride 105 mmol/L (98-108); Estimated Glomerular Filt Rate 56; Glucose 185 mg/dL (70-99); Lactate Dehydrogenase 142 U/L (85-227); Osmolality Calculated 297 mOsm/kg (285-295); Potassium 3.8 mmol/L (3.5-5.1); Sodium 140 mmol/L (136-145)
== END 2022-04-27 11:13 | disposition home or self-care (01) ==
LOC: CHSLAB 11:17
PROVIDERS: PCP Family Medicine; Visit Provider Internal Medicine Hematology & Oncology
DX: C85.10 Unspecified B-cell lymphoma, unspecified site (principal)
CPT/HCPCS: 36415; 80053; 83615; 85025

== ENCOUNTER 2022-04-30 10:58 | Outpatient (CLI) | payer MEDICARE, SELFPAY ==
[2022-04-30 11:38] LABS: Thyroid Stimulating Hormone Reflex 1.33 u/IU/mL (0.36-3.74)
[2022-04-30 12:06] LABS: Prostate Specific Antigen 0.7 ng/mL (< OR = 4.0)
== END 2022-04-30 10:59 | disposition home or self-care (01) ==
LOC: CHSLAB 11:00
PROVIDERS: PCP Family Medicine; Visit Provider Internal Medicine Hematology & Oncology
DX: E07.9 Disorder of thyroid, unspecified (principal); R39.89 Other symptoms and signs involving the genitourinary system; N40.0 Benign prostatic hyperplasia without lower urinary tract symptoms
CPT/HCPCS: 36415; 84153; 84443

== ENCOUNTER 2022-05-12 16:06 | Outpatient (CLI) | payer MEDICARE, SELFPAY ==
--- NOTE | ~2022-05-12 | US_ITS ---
EXAMINATION: US soft tissue chest DATE: 05/12/2022 16:27 INDICATION: Redness and swelling in the area of the right chest port. Port placed in 2017. TECHNIQUE: Grayscale and Doppler ultrasound images of the right upper chest soft tissues and area of clinical concern were obtained. COMPARISON: None. FINDINGS: Implanted right chest port, without evidence of surrounding fluid collection. IMPRESSION: 1. No sonographic abnormality detected. Reviewed, dictated and finalized at location K.
== END 2022-05-12 16:07 | disposition home or self-care (01) ==
LOC: CHSIMG 16:08
PROVIDERS: PCP Nurse Practitioner Family; Visit Provider Nurse Practitioner Family
DX: T82.9XXA Unspecified complication of cardiac and vascular prosthetic device, implant and graft, initial encounter (principal)
CPT/HCPCS: 76604

== ENCOUNTER 2022-05-26 06:10 | Emergency (ER) | payer MEDICARE, SELFPAY ==
[2022-05-26 06:15] VITALS: BP 132/87; PULSE 63; RESP 16; TEMP 36.3; O2SAT 98
[2022-05-26 06:35] VITALS: BP 124/77; PULSE 60; RESP 16; O2SAT 99
--- NOTE | 2022-05-26 06:41 | ED.DIZZY ---
HPI - Dizziness General Chief Complaint: Dizziness Stated Complaint: dizziness, nausea Time Seen by Provider: 05/26/22 06:42 Source: patient and RN notes reviewed Mode of arrival: ambulatory Limitations: no limitations History of Present Illness MD elicited complaint: dizziness and vertigo Pertinent past history: inner ear problems Onset (ago): hour(s) (1) Timing: sudden onset Severity: moderate Description: room spinning Context: change in body position History of similar symptoms: Yes Exacerbating factors: change in body position Relieving factors: remaining still Associated symptoms: nausea Related Data Home Medications Medication Instructions Recorded Confirmed acetaminophen 500 mg tablet 1,000 mg PO DAILY 03/01/22 05/26/22 aspirin 81 mg tablet 81 mg PO DAILY 03/01/22 05/26/22 ticagrelor 60 mg tablet (Brilinta) 60 mg PO Q12H 05/04/22 05/26/22 Allergies Allergy/AdvReac Type Severity Reaction Status Date / Time No Known Allergies Allergy Verified 05/26/22 06:35 Review of Systems Review of Systems: All systems reviewed & are unremarkable except as noted in HPI and below PMFSH Past Medical History Medical History B-cell lymphoma BPH (benign prostatic hyperplasia) DM2 (diabetes mellitus, type 2) Erectile dysfunction GERD (gastroesophageal reflux disease) Hyperlipidemia Hypertension Osteoarthritis Overweight Surgical History Surgical History History of laminectomy History of total right knee replacement (TKR) History of umbilical hernia repair Hx of cataract surgery Family History Family History Mother Family history of type 2 diabetes mellitus Family history of obesity Brother Family history of malignant neoplasm of bone Sister Family history of type 2 diabetes mellitus Father Alcoholism Other Diabetes mellitus Hypertension Social History Social History Smoking status: Former smoker Tobacco type: cigarettes Second hand tobacco smoke exposure: Yes Additional smoking assessment comments: smoked 1 PPD for over 38 years, quit 22 years ago Alcohol intake: current Alcohol use details: on rare occasion, less than 10 drinks in the last year Substance use: never Additional living arrangements comments: . 3 adult children. 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 Spiritual care concerns: No Exam Const: General: healthy appearing, no acute distress and alert Nutritional Appearance: well nourished and obese centrally obese Orientation/consciousness: patient oriented x3 Limitations: no limitations HENMT: Head: normal to inspection Ears: TM's normal bilaterally Face and sinus: normal facial exam Eyes: Conjunctivae: conjunctivae normal Pupils: Equal, round and reactive pupils present EOM: EOMs intact bilaterally Neck: Neck: normal visual inspection Resp: Effort & Inspection: normal respiratory effort Auscultation: clear to auscultation bilaterally Cardio: Rate: regular rate Rhythm: regular rhythm GI: GI Palp: Yes Soft to palpation and No Tenderness to palpation present (GI) Auscultation: normal bowel sounds Back/Spine/Pelvis: Cervical Spine: cervical ROM normal Thoracic/Lumbar Spine: thoraco-lumbar ROM normal Skin: General skin exam: normal color Rashes: no rashes Wounds: no wounds Neuro: General: patient oriented x3 and moves all extremities Cranial nerves: Yes Nystagmus present horizontal fast component to the left Speech: normal speech Gait exam (Neuro): Normal gait present Extrem: General: normal to inspection and no clubbing, cyanosis or edema Psych: Mental Status: mental status grossly normal Affect: normal affect Attitude: cooperative Course Course Emergency Course: [place]-Hallpike maneuver
== END 2022-05-26 07:07 | disposition home or self-care (01) ==
PROVIDERS: Emergency Provider Emergency Medicine; PCP Family Medicine
DX: H81.10 Benign paroxysmal vertigo, unspecified ear (principal)
CPT/HCPCS: 99283

== ENCOUNTER 2022-09-20 13:30 | Outpatient (CLI) | payer MEDICARE, SELFPAY ==
[2022-09-20 13:35] VITALS: BMI 30.2
[2022-09-20] MEDS: HEPARIN SODIUM LOCK FLUSH 500 UNITS/5 ML SYRINGE IV PUSH (13:45)
[2022-09-20 13:52] LABS: Basophils Absolute Auto 0.05 K/mm3 (0.00-0.10); Basophils Percent Auto 0.7 % (0.0-1.0); Eosinophils Absolute Auto 0.18 K/mm3 (0.02-0.50); Eosinophils Percent Auto 2.5 % (1.0-6.0); Hematocrit 39.2 % (37.0-46.0); Hemoglobin 12.7 g/dL (12.4-15.3); Immature Granulocyte Absolute 0.06 K/mm3 (0.00-0.00); Immature Granulocyte Percent A 0.8 % (0.0-0.0); Lymphocytes Absolute Auto 1.33 K/mm3 (1.10-4.50); Lymphocytes Percent Auto 18.4 % (18.0-42.0); Mean Corpuscular HGB Conc 32.4 g/dL (32.0-36.0); Mean Corpuscular Hemoglobin 30.8 pg (27.0-31.0); Mean Corpuscular Volume 95.1 fL (78.0-102.0); Mean Platelet Volume 9.6 fl (8.7-11.0); Monocytes Absolute Auto 0.53 K/mm3 (0.10-0.90); Monocytes Percent Auto 7.3 % (2.0-11.0); Neutrophils Absolute Auto 5.1 K/mm3 (1.7-7.2); Neutrophils Percent Auto 70.3 % (50.0-70.0); Platelet Count Result 237 K/mm3 (150-420); Red Blood Count 4.12 M/mm3 (4.70-6.10); Red Cell Distribution Width 12.4 % (11.6-14.4); White Blood Count 7.2 K/mm3 (4.8-10.8)
--- NOTE | 2022-09-20 14:26 | PC.NURSE ---
Addendum entered by Radha Cintron RN 09/22/22 09:27: Patient also has lab work drawn from the port. See labs. Original Note: Patient here for port a cath flush. No concerns voiced. Port flush completed. SEE MAR and Worklist. Tolerated well. Safe exit of hospital.
[2022-09-20 14:33] LABS: Alanine Aminotransferase 34 U/L (16-63); Alkaline Phosphatase 79 U/L (46-116); Anion Gap 11 mmol/L (8-16); Aspartate Amino Transferase 18 U/L (15-37); Bilirubin,Total 0.4 mg/dL (0.00-1.00); Blood Urea Nitrogen 21 mg/dL (7-18); Calcium 8.6 mg/dL (8.5-10.1); Carbon Dioxide 25 mmol/L (21-32); Chloride 107 mmol/L (98-108); Estimated CRCL calculation 58 ml/min; Estimated Glomerular Filt Rate > 60; Glucose 135 mg/dL (70-99); Osmolality Calculated 301 mOsm/kg (285-295); Potassium 3.4 mmol/L (3.5-5.1); Sodium 143 mmol/L (136-145); Total Protein 6.6 g/dL (6.4-8.2)
== END 2022-09-20 13:31 | disposition home or self-care (01) ==
LOC: CHSTREATRM 13:33
PROVIDERS: PCP Family Medicine; Visit Provider Internal Medicine Hematology & Oncology
DX: C85.10 Unspecified B-cell lymphoma, unspecified site (principal)
CPT/HCPCS: 36415; 36591; 80053; 85025; 96523

== ENCOUNTER 2023-02-17 13:04 | Outpatient (CLI) | payer MEDICARE, SELFPAY ==
[2023-02-17] MEDS: HEPARIN SODIUM LOCK FLUSH 500 UNITS/5 ML SYRINGE IV PUSH (13:25)
[2023-02-17 13:37] VITALS: BMI 28.6
--- NOTE | 2023-02-17 13:43 | PC.NURSE ---
Patient here for monthly port flush. Had been in [place] for the winter and just returned to area. Right subclavian port flushed per protocol. SEE vascular access and MAR. Tolerated well. Safe exit of hospital per self ambulatory.
== END 2023-02-17 13:05 | disposition home or self-care (01) ==
PROVIDERS: PCP Family Medicine; Visit Provider Internal Medicine Hematology & Oncology
DX: Z45.2 Encounter for adjustment and management of vascular access device (principal); C85.10 Unspecified B-cell lymphoma, unspecified site
CPT/HCPCS: 96523

== ENCOUNTER 2023-03-03 14:04 | Outpatient (CLI) | payer MEDICARE, SELFPAY ==
[2023-03-03 15:07] LABS: HIV 1 P24 AG Negative (Negative); HIV 1/2 AB Negative (Negative)
[2023-03-07 02:53] LABS: Hepatitis A Antibody IgM Nonreactive; Hepatitis B Core Antibody Nonreactive (Nonreactive); Hepatitis B Surface Antigen Nonreactive (Nonreactive); Hepatitis C Signal to Cutoff 0.01 ratio (<1.00); Hepatitis C Virus Antibody Nonreactive (Nonreactive)
== END 2023-03-03 14:05 | disposition home or self-care (01) ==
LOC: CHSLAB 14:06
PROVIDERS: PCP Family Medicine; Visit Provider Family Medicine
DX: R74.01 Elevation of levels of liver transaminase levels (principal); Z72.51 High risk heterosexual behavior; Z20.2 Contact with and (suspected) exposure to infections with a predominantly sexual mode of transmission
CPT/HCPCS: 36415; 80074; 86703; 87491; 87591; 87661

== ENCOUNTER 2023-11-22 15:03 | Outpatient (CLI) | payer MEDICARE, SELFPAY ==
[2023-11-22 15:28] LABS: Basophils Absolute Auto 0.06 K/mm3 (0.00-0.10); Basophils Percent Auto 0.7 % (0.0-1.0); Eosinophils Absolute Auto 0.13 K/mm3 (0.02-0.50); Eosinophils Percent Auto 1.6 % (1.0-6.0); Hematocrit 39.6 % (37.0-46.0); Hemoglobin 12.9 g/dL (12.4-15.3); Immature Granulocyte Absolute 0.11 K/mm3 (0.00-0.00); Immature Granulocyte Percent A 1.3 % (0.0-0.0); Lymphocytes Absolute Auto 1.68 K/mm3 (1.10-4.50); Lymphocytes Percent Auto 20.1 % (18.0-42.0); Mean Corpuscular HGB Conc 32.6 g/dL (32.0-36.0); Mean Corpuscular Hemoglobin 31.1 pg (27.0-31.0); Mean Corpuscular Volume 95.4 fL (78.0-102.0); Mean Platelet Volume 10.1 fl (8.7-11.0); Monocytes Absolute Auto 0.69 K/mm3 (0.10-0.90); Monocytes Percent Auto 8.3 % (2.0-11.0); Neutrophils Absolute Auto 5.7 K/mm3 (1.7-7.2); Platelet Count Result 226 K/mm3 (150-420); Red Blood Count 4.15 M/mm3 (4.70-6.10); Red Cell Distribution Width 12.4 % (11.6-14.4); White Blood Count 8.4 K/mm3 (4.8-10.8)
[2023-11-22] MEDS: HEPARIN SODIUM LOCK FLUSH 500 UNITS/5 ML SYRINGE IV PUSH (15:40)
--- NOTE | 2023-11-22 15:42 | PC.NURSE ---
Patient here for monthly port flush. No concerns voiced. Reports needs labs too-if can drawn from port. Port accessed. Labs drawn. Port flushed with 20 ml of normal saline and 500 units heparin in 10 ml in normal saline. Port deaccessed. Tolerated well. Safe exit of hospital per self/ambulatory.
[2023-11-22 16:23] LABS: Alanine Aminotransferase 43 U/L (16-63); Albumin Level 3.9 g/dL (3.4-5.0); Alkaline Phosphatase 77 U/L (46-116); Anion Gap 9 mmol/L (8-16); Aspartate Amino Transferase 24 U/L (15-37); Bilirubin,Total 0.4 mg/dL (0.00-1.00); Blood Urea Nitrogen 18 mg/dL (7-18); Calcium 9.4 mg/dL (8.5-10.1); Carbon Dioxide 27 mmol/L (21-32); Chloride 105 mmol/L (98-108); Cholesterol 176 mg/dL (0-200); Estimated Glomerular Filt Rate 55; Glucose 161 mg/dL (70-99); HDL Direct 35 mg/dL (40-60); LDL Cholesterol Calculated 89 mg/dL (<130); Osmolality Calculated 296 mOsm/kg (285-295); Sodium 141 mmol/L (136-145); Total Protein 6.6 g/dL (6.4-8.2); Triglycerides 260 mg/dL (0-150)
== END 2023-11-22 15:04 | disposition home or self-care (01) ==
PROVIDERS: PCP Family Medicine; Visit Provider Family Medicine
DX: Z45.2 Encounter for adjustment and management of vascular access device (principal); E11.59 Type 2 diabetes mellitus with other circulatory complications; I15.2 Hypertension secondary to endocrine disorders
CPT/HCPCS: 36415; 36591; 80053; 80061; 85025; 96523

== ENCOUNTER 2023-11-22 19:02 | Outpatient (NON) | payer MEDICARE, SELFPAY | END 2023-11-22 19:03 | disposition home or self-care (01) | LOC: CHSLAB 19:04 | PROVIDERS: Visit Provider Family Medicine | DX: L57.0 Actinic keratosis (principal) | CPT/HCPCS: 88305 ==

== ENCOUNTER 2024-02-14 07:51 | Outpatient (CLI) | payer MEDICARE, SELFPAY ==
[2024-02-14 08:00] VITALS: BMI 30.2
[2024-02-14] MEDS: HEPARIN SODIUM LOCK FLUSH 500 UNITS/5 ML SYRINGE IV PUSH (08:00)
--- NOTE | 2024-02-14 08:11 | PC.NURSE ---
Patient here for port a cath flush. Procedure explained. No concerns. Port flushed per protocol. SEE MAR/patient care. Tolerated well. Site asystomatic of s/sx of injection. Patient will call to set up next port flush at his connivence. Safe exit of hospital per ambulatory/self.
[2024-02-14 08:13] VITALS: BP 124/77; PULSE 74; RESP 14; TEMP 36.3; O2SAT 97
== END 2024-02-14 08:10 | disposition home or self-care (01) ==
LOC: CHSTREATRM 07:53
PROVIDERS: PCP Family Medicine; Visit Provider Internal Medicine Hematology & Oncology
DX: Z45.2 Encounter for adjustment and management of vascular access device (principal); C85.10 Unspecified B-cell lymphoma, unspecified site
CPT/HCPCS: 96523

== ENCOUNTER 2024-02-20 14:42 | Outpatient (RCR) | payer MEDICARE, SELFPAY ==
--- NOTE | 2024-02-20 16:16 | PTOPEVAL1 ---
Assessment and note entered by Louie Bose Evaluation Information Assessment Status Evaluation Diagnosis BPPV Onset 08/21/24 Subjective Information Pt. reports that he developed dizziness about 6 months ago. He reports that dizziness occurs with rolling to his right side in bed and looking over his shoulder. he states that dizziness occurs daily when getting out of bed. He reports that if he takes his time and keeps his head straight he can avoid dizziness. He reports he enjoys golfing but dizziness limits his golfing. He also has trouble with activities that require a large amount of head movements. He reports that his goal is to reduce his dizziness. Reported Pain Level Pain Score 0: Self Report Assessment PT Clinical Summary Pt. is a 78 year old male who enters the clinic with BPPV. He presents with mild nystagmus to the right during the [place] Halpike Maneuver. At this time pt. is independent with the home [place]vie Maneuver. He is comfortable with performing the maneuver and request no follow up post Rx. Plan of Care Treatment Frequency and D/C from PT to an independent HEP Duration These treatments will address the objective and functional deficits as defined above. The patient will be advanced safely and appropriately in order for the patient to progress towards his/her prior level of function. Additional exercises will be introduced and as well as a comprehensive home exercise program upon discharge, if needed, ?to ensure carryover of functional gains achieved in the clinic. This treatment plan has been reviewed and agreement upon by the patient.
== END 2024-02-20 16:43 | disposition home or self-care (01) ==
LOC: CHSPT 14:42
PROVIDERS: Visit Provider Family Medicine
DX: H81.11 Benign paroxysmal vertigo, right ear (principal)
CPT/HCPCS: 95992; 97161

== ENCOUNTER 2024-03-28 00:42 | Day surgery (SDC) | payer MEDICARE, SELFPAY ==
[2024-03-12 12:54] VITALS: BMI 32.7
[2024-03-28 07:53] VITALS: BP 142/76; PULSE 62; RESP 19; TEMP 36.2; O2SAT 100
[2024-03-28] MEDS: LACTATED RINGERS 1,000 ML 150 ML IV CONT (08:03)
[2024-03-28 08:27] LABS: Glucose Point of Care 145 mg/dl (65-105)
--- NOTE | 2024-03-28 08:27 | WPDANESEPPF ---
Anes - Initial Pre Proc Eval Procedure: Operation Date: 03/28/24 09:00 Proposed Procedures p Colonoscopy - De Sheridan MD Date/Time: 03/28/24 08:27 Surgeon: De Sheridan MD Pre Op Diagnosis: History colon polyps Patient Data Age: 78 Gender: M Height: 1.75 m Weight: 98 kg Last Vital Signs Temp 97.1 F L 03/28/24 07:53 Pulse 62 03/28/24 07:53 Resp 19 03/28/24 07:53 BP 142/76 H 03/28/24 07:53 Pulse Ox 100 03/28/24 07:53 O2 Del Method Room Air 03/28/24 07:53 Allergies Allergy/AdvReac Type Severity Reaction Status Date / Time No Known Allergies Allergy Verified 03/28/24 07:52 Home Medications Medication Instructions Recorded Confirmed Type blood sugar diagnostic (Contour #100 ea 02/01/22 03/12/24 Rx Next Test Strips) aspirin 81 mg tablet 81 mg PO DAILY 03/01/22 03/12/24 History sildenafil 50 mg tablet See Rx Instructions .Route 03/03/22 03/12/24 Rx .COMPLEX #30 tabs amlodipine 10 mg tablet See Rx Instructions .Route 03/09/23 03/12/24 Rx .COMPLEX #90 tabs pantoprazole 40 mg tablet,delayed See Rx Instructions .Route 11/22/23 03/12/24 Rx release .COMPLEX #90 tabs simvastatin 40 mg tablet See Rx Instructions .Route 11/22/23 03/12/24 Rx .COMPLEX #90 tabs tamsulosin 0.4 mg capsule See Rx Instructions .Route 12/13/23 03/12/24 Rx .COMPLEX #180 caps acetaminophen 500 mg tablet 1,000 mg PO Q6H 02/14/24 03/12/24 History finasteride 5 mg tablet See Rx Instructions .Route 02/20/24 03/12/24 Rx .COMPLEX #90 tabs furosemide 20 mg tablet See Rx Instructions .Route 02/20/24 03/12/24 Rx .COMPLEX #90 tabs naproxen sodium 220 mg capsule 220 mg PO BID PRN Pain 02/22/24 03/12/24 History (Aleve) losartan 50 mg tablet See Rx Instructions .Route 04/05/24 04/22/24 Rx .COMPLEX #90 tabs metformin 1,000 mg tablet See Rx Instructions .Route 02/24/24 03/12/24 Rx .COMPLEX #180 tabs Laboratory Tests 03/28/24 08:25 POC Capillary Glucose Pending Patient hx anesthesia problems: none Family hx anesthesia problems: none Results Review: All pre-operative results and documents have been reviewed as part of the pre-operative evaluation. [facility]LY [facility] Past Medical History Medical History B-cell lymphoma BPH (benign prostatic hyperplasia) DM2 (diabetes mellitus, type 2) Erectile dysfunction GERD (gastroesophageal reflux disease) Hyperlipidemia Hypertension Osteoarthritis Overweight Surgical History Surgical History History of laminectomy History of total right knee replacement (TKR) History of umbilical hernia repair Hx of cataract surgery Family History Family History (Updated 02/22/24 @ 09:41 by Wilfrido Alex RN) Mother Family history of type 2 diabetes mellitus Family history of obesity Brother Family history of malignant neoplasm of bone Sister Family history of type 2 diabetes mellitus Father Alcoholism Son Myocardial infarction Other Diabetes mellitus Hypertension Social History Social History (Updated 02/22/24 @ 10:32 by Wilfrido Alex RN) Smoking packs per day: 1 Smoking cigarettes per day: 20.0 Years smoked: 24 Smoking pack-years: 24.00 Smoking status: Former smoker Tobacco type: cigarettes Second hand tobacco smoke exposure: Yes Additional smoking assessment comments: smoked 1 PPD for over 38 years, quit 22 years ago Alcohol intake: current Drinks per week: 1 Alcohol use details: on rare occasion, less than 10 drinks in the last year Substance use: never Substance use type: does not use Do You Feel Safe in your Home?: Yes Lack of Transportation: No Lack of Food: Never True Current Housing: I Have Housing Concerned About Future Housing: No Difficulty Paying Gas/Electric Bills: No Difficulty Paying for Meds: No Currently Unemployed: No Educat
--- NOTE | 2024-03-28 08:34 | PM.HPGS ---
History of Present Illness History of Present Illness Consent: Risks, benefits, and alternatives have been discussed and questions answered. Patient agrees to proceed with procedure. Chief complaint: History colon polyps Narrative: Shreyas Dyer is a 78 year old male with colon polyps, getting colonoscopies every 3 years Review of Systems Review of Systems: All systems reviewed & are unremarkable except as noted in HPI and below PMFSH Past Medical History Medical History B-cell lymphoma BPH (benign prostatic hyperplasia) DM2 (diabetes mellitus, type 2) Erectile dysfunction GERD (gastroesophageal reflux disease) Hyperlipidemia Hypertension Osteoarthritis Overweight Surgical History Surgical History History of laminectomy History of total right knee replacement (TKR) History of umbilical hernia repair Hx of cataract surgery Family History Family History (Updated 02/22/24 @ 09:41 by Wilfrido Alex RN) Mother Family history of type 2 diabetes mellitus Family history of obesity Brother Family history of malignant neoplasm of bone Sister Family history of type 2 diabetes mellitus Father Alcoholism Son Myocardial infarction Other Diabetes mellitus Hypertension Social History Social History (Updated 02/22/24 @ 10:32 by Wilfrido Alex RN) Smoking packs per day: 1 Smoking cigarettes per day: 20.0 Years smoked: 24 Smoking pack-years: 24.00 Smoking status: Former smoker Tobacco type: cigarettes Second hand tobacco smoke exposure: Yes Additional smoking assessment comments: smoked 1 PPD for over 38 years, quit 22 years ago Alcohol intake: current Drinks per week: 1 Alcohol use details: on rare occasion, less than 10 drinks in the last year Substance use: never Substance use type: does not use Do You Feel Safe in your Home?: Yes Lack of Transportation: No Lack of Food: Never True Current Housing: I Have Housing Concerned About Future Housing: No Difficulty Paying Gas/Electric Bills: No Difficulty Paying for Meds: No Currently Unemployed: No Education: High School Diploma/GED Difficulty w/ Childcare or Family Care: No Living arrangements: alone Additional living arrangements comments: . 3 adult children. 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 Gender identity (if verbalized by the patient): Male Spiritual care concerns: No Meds Home Medications and Allergies Home Medications Medication Instructions Recorded Confirmed Type blood sugar diagnostic (Contour #100 ea 02/01/22 03/12/24 Rx Next Test Strips) aspirin 81 mg tablet 81 mg PO DAILY 03/01/22 03/12/24 History sildenafil 50 mg tablet See Rx Instructions .Route 03/03/22 03/12/24 Rx .COMPLEX #30 tabs amlodipine 10 mg tablet See Rx Instructions .Route 03/09/23 03/12/24 Rx .COMPLEX #90 tabs pantoprazole 40 mg tablet,delayed See Rx Instructions .Route 11/22/23 03/12/24 Rx release .COMPLEX #90 tabs simvastatin 40 mg tablet See Rx Instructions .Route 11/22/23 03/12/24 Rx .COMPLEX #90 tabs tamsulosin 0.4 mg capsule See Rx Instructions .Route 12/13/23 03/12/24 Rx .COMPLEX #180 caps acetaminophen 500 mg tablet 1,000 mg PO Q6H 02/14/24 03/12/24 History finasteride 5 mg tablet See Rx Instructions .Route 02/20/24 03/12/24 Rx .COMPLEX #90 tabs furosemide 20 mg tablet See Rx Instructions .Route 02/20/24 03/12/24 Rx .COMPLEX #90 tabs naproxen sodium 220 mg capsule 220 mg PO BID PRN Pain 02/22/24 03/12/24 History (Aleve) losartan 50 mg tablet See Rx Instructions .Route 02/24/24 03/12/24 Rx .COMPLEX #90 tabs metformin 1,000 mg tablet See Rx Instructions .Route 02/24/24 03/12/24 Rx .COMPLEX #180 tabs Allergies Allergy/AdvReac Type Severity Reaction Status Date / Time No Known A
[2024-03-28 09:13] VITALS: BP 117/84; PULSE 55; RESP 22; O2SAT 98
[2024-03-28 09:23] VITALS: BP 134/74; PULSE 59; RESP 18; O2SAT 98
[2024-03-28 09:33] VITALS: BP 135/92; PULSE 53; RESP 19; O2SAT 98
== END 2024-03-28 09:42 | disposition home or self-care (01) ==
PROVIDERS: PCP Family Medicine; Visit Provider Internal Medicine Gastroenterology
PROC: 0DJD8ZZ Inspection of Lower Intestinal Tract, Via Natural or Artificial Opening Endoscopic (ICD-10-PCS; CPT 45378; principal; 2024-03-28 09:00)
DX: Z12.11 Encounter for screening for malignant neoplasm of colon (principal); D12.2 Benign neoplasm of ascending colon; D12.3 Benign neoplasm of transverse colon; K57.30 Diverticulosis of large intestine without perforation or abscess without bleeding; K64.8 Other hemorrhoids; I10 Essential (primary) hypertension; E11.9 Type 2 diabetes mellitus without complications; E78.5 Hyperlipidemia, unspecified; N40.0 Benign prostatic hyperplasia without lower urinary tract symptoms; K21.9 Gastro-esophageal reflux disease without esophagitis; Z85.72 Personal history of non-Hodgkin lymphomas; Z79.84 Long term (current) use of oral hypoglycemic drugs; Z79.82 Long term (current) use of aspirin; Z87.891 Personal history of nicotine dependence; E66.9 Obesity, unspecified; Z68.31 Body mass index [BMI] 31.0-31.9, adult
CPT/HCPCS: 45385; 45381; 82948; 88305; 88309; J1596; J2704; J7120

== ENCOUNTER 2024-05-18 06:55 | Outpatient (CLI) | payer MEDICARE, SELFPAY ==
[2024-05-18 07:15] LABS: Basophils Absolute Auto 0.05 K/mm3 (0.00-0.10); Basophils Percent Auto 0.8 % (0.0-1.0); Eosinophils Absolute Auto 0.39 K/mm3 (0.02-0.50); Eosinophils Percent Auto 6.1 % (1.0-6.0); Hematocrit 36.9 % (37.0-46.0); Hemoglobin 12.2 g/dL (12.4-15.3); Immature Granulocyte Absolute 0.05 K/mm3 (0.00-0.00); Immature Granulocyte Percent A 0.8 % (0.0-0.0); Lymphocytes Absolute Auto 1.48 K/mm3 (1.10-4.50); Lymphocytes Percent Auto 23.1 % (18.0-42.0); Mean Corpuscular HGB Conc 33.1 g/dL (32-36); Mean Corpuscular Hemoglobin 31.8 pg (27.0-31.0); Mean Corpuscular Volume 96.1 fL (78.0-102.0); Mean Platelet Volume 10.3 fl (8.7-11.0); Monocytes Absolute Auto 0.54 K/mm3 (0.10-0.90); Monocytes Percent Auto 8.4 % (2.0-11.0); Neutrophils Absolute Auto 3.89 K/mm3 (1.70-7.20); Neutrophils Percent Auto 60.8 % (50.0-70.0); Platelet Count Result 199 K/mm3 (150-420); Red Blood Count 3.84 M/mm3 (4.70-6.10); Red Cell Distribution Width 12.4 % (11.6-14.4); White Blood Count 6.4 K/mm3 (4.8-10.8)
[2024-05-18 07:58] LABS: Alanine Aminotransferase 36 U/L (16-63); Albumin Level 3.7 g/dL (3.4-5.0); Alkaline Phosphatase 76 U/L (46-116); Anion Gap 12 mmol/L (4-12); Aspartate Amino Transferase 21 U/L (15-37); Bilirubin,Total 0.4 mg/dL (0.00-1.00); Blood Urea Nitrogen 22 mg/dL (7-18); Calcium 8.9 mg/dL (8.5-10.1); Carbon Dioxide 22 mmol/L (21-32); Chloride 106 mmol/L (98-108); Estimated Glomerular Filt Rate > 60; Glucose 202 mg/dL (70-99); Lactate Dehydrogenase 162 U/L (85-227); Osmolality Calculated 299 mOsm/kg (285-295); Potassium 4.2 mmol/L (3.5-5.1); Prostate Specific Antigen 0.7 ng/mL (< OR = 4.0); Sodium 140 mmol/L (136-145); Total Protein 6.3 g/dL (6.4-8.2)
== END 2024-05-18 06:56 | disposition home or self-care (01) ==
LOC: CHSLAB 06:57
PROVIDERS: PCP Family Medicine; Visit Provider Internal Medicine Hematology
DX: C85.10 Unspecified B-cell lymphoma, unspecified site (principal); Z12.6 Encounter for screening for malignant neoplasm of bladder; Z12.5 Encounter for screening for malignant neoplasm of prostate
CPT/HCPCS: 36415; 80053; 83615; 84153; 85025; G0103

== ENCOUNTER 2024-06-01 16:15 | Outpatient (NON) | payer MEDICARE, SELFPAY | END 2024-06-01 16:16 | disposition home or self-care (01) | LOC: CHSLAB 16:17 | PROVIDERS: Visit Provider Family Medicine | DX: D23.71 Other benign neoplasm of skin of right lower limb, including hip (principal) | CPT/HCPCS: 88305 ==

== ENCOUNTER 2024-06-20 09:57 | Outpatient (CLI) | payer MEDICARE, SELFPAY ==
--- NOTE | ~2024-06-20 | CT_ITS ---
Non-contrast CT scan of the Abdomen and Pelvis Clinical indication: Ventral hernia Technique: 2.5 mm axial scans were obtained through the abdomen and pelvis without intravenous or or al contrast. Dose reduction technique was used on this scan by utilizing automated exposure control a nd iterative reconstruction technique. The dose-length product (DLP) was 1122.25 mGy-cm. Findings: Images through the lung bases reveal minimal bibasilar chronic additional change. Multiple bilateral nonobstructing renal stones are present, largest in the left kidney measuring up t o 9 mm in diameter. No ureteral stone or hydronephrosis on either side. The liver, spleen, pancreas, gallbladder, and adrenals appear normal. There are atherosclerotic calci fications of the aorta. There is no evidence of bowel obstruction. There is mild haziness in the central mesentery with small shotty lymph nodes present. Sigmoid diverticulosis noted. Images through the pelvis were performed. There is no evidence of ascites or lymphadenopathy. Urinary bladder unremarkable. Prostate gland is enlarged, and indents the bladder base. There is an apparent elongated wire or catheter fragment in the pelvis in the right side. Impression: Nonobstructing bilateral nephrolithiasis, as detailed above. Mesenteric panniculitis. Prostatomegaly. Elongated catheter fragment or wire in the right pelvis. This is stable since prior exam dated 020. Reviewed, dictated and finalized at [facility]. Impression: Nonobstructing bilateral nephrolithiasis, as detailed above. Mesenteric panniculitis. Prostatomegaly. Elongated catheter fragment or wire in the right pelvis. This is stable since p rior exam dated 08/20/2020.
== END 2024-06-20 09:58 | disposition home or self-care (01) ==
LOC: CHSIMG 09:58
PROVIDERS: PCP Family Medicine; Visit Provider Surgery
DX: K43.9 Ventral hernia without obstruction or gangrene (principal); N20.0 Calculus of kidney; K65.4 Sclerosing mesenteritis; N40.0 Benign prostatic hyperplasia without lower urinary tract symptoms
CPT/HCPCS: 74176

== ENCOUNTER 2024-07-20 16:18 | Outpatient (CLI) | payer MEDICARE, SELFPAY ==
[2024-07-20 17:17] LABS: Anion Gap 10 mmol/L (4-12); Blood Urea Nitrogen 22 mg/dL (7-18); Calcium 9.2 mg/dL (8.5-10.1); Carbon Dioxide 26 mmol/L (21-32); Chloride 104 mmol/L (98-108); Estimated Glomerular Filt Rate 58; Glucose 146 mg/dL (70-99); Osmolality Calculated 296 mOsm/kg (285-295); Potassium 4.2 mmol/L (3.5-5.1); Sodium 140 mmol/L (136-145)
== END 2024-07-20 16:19 | disposition home or self-care (01) ==
LOC: CHSLAB 16:20
PROVIDERS: PCP Family Medicine; Visit Provider Anesthesiology
DX: Z01.818 Encounter for other preprocedural examination (principal); E11.9 Type 2 diabetes mellitus without complications
CPT/HCPCS: 36415; 80048

== ENCOUNTER 2024-07-27 00:14 | Day surgery (SDC) | payer MEDICARE, SELFPAY ==
[2024-07-20 15:34] VITALS: BMI 31.8
--- NOTE | 2024-07-20 16:06 | PC.NURSE ---
Report to the Outpatient Waiting Room, entrance under the green pavilion located off [facility], at time _12:00PM__ on date _07/27/24__. Planned Procedure Time: __2:00PM .? Time changes happen often and if your time is changed the preop area will call you the afternoon before. - You and your visitor will be asked to self-screen and do not enter if you have any COVID symptoms. Please call surgeon if you need to reschedule. - A mask is optional within the hospital at this time. Patients may have clear liquids (water, carbonated beverages, clear teas, apple juice) until 3 hours prior to surgery with a maximum of 20 ounces. - No food from midnight until time of surgery and no smoking. Take only the following medications with a SIP of water on the morning of surgery: ___AMLODIPINE DO NOT STOP ANY OF YOUR OTHER PRESCRIPTION MEDICATIONS PRIOR TO SURGERY EXCEPT THE FOLLOWING Medications to discontinue per physician NONE Date to take last dose Please no make-up, nail [place] island[place], hairspray, perfume, deodorant, or body powder the day of surgery.? No jewelry (including any body piercings) or valuables the day of surgery, leave them at home.? Please take a shower or bath the night before, or the morning of, surgery with an antibacterial soap.? Wear comfortable, loose fitting clothing.? Children are encouraged to wear pajamas. - Jewelry must be removed prior to entering the operating room.? Rings and piercings that are not removed may be cut off. - The hospital will not accept responsibility for valuables.? - Please leave all valuables, including medications, at home the day of surgery. If you are going home after surgery, a licensed flatbed truck driver must drive you home.? - NO public transportation without another adult if you receive anesthesia. - We recommend that an adult stay with you for 24 hours following discharge. - We also recommend that you do not drive, make important decision, drink alcoholic beverages, or take any drugs that were not prescribed by your health care provider for at least 24 hours after your discharge time. For Pediatric surgeries, we recommend two adults accompany the child home. Follow any additional instructions given to you from your surgeon. Telephone instructions given to ___PATIENT and asked if any additional questions and then verbalized understanding. Patient advised to call surgeon office or pre surgery nurse liaison [phone] if any additional questions.
--- NOTE | 2024-07-27 08:39 | WPDANESEPPF ---
Anes - Initial Pre Proc Eval Procedure: Operation Date: 07/27/24 14:00 Proposed Procedures p Removal [place] Cath - Mark López DO Date/Time: 07/27/24 08:39 Surgeon: Mark López DO Pre Op Diagnosis: b-cell lymphoma Patient Data Age: 78 Gender: M Height: 1.75 m Weight: 98 kg Allergies Allergy/AdvReac Type Severity Reaction Status Date / Time No Known Allergies Allergy Verified 07/27/24 12:12 Home Medications Medication Instructions Recorded Confirmed Type blood sugar diagnostic (Contour #100 ea 02/01/22 07/27/24 Rx Next Test Strips) aspirin 81 mg tablet 81 mg PO DAILY 03/01/22 07/27/24 History tamsulosin 0.4 mg capsule See Rx Instructions .Route 12/13/23 07/27/24 Rx .COMPLEX #180 caps acetaminophen 500 mg tablet 1,000 mg PO Q6H PRN Pain 02/14/24 07/27/24 History naproxen sodium 220 mg capsule 220 mg PO BID PRN Pain 02/22/24 07/27/24 History (Aleve) losartan 50 mg tablet See Rx Instructions .Route 02/24/24 07/27/24 Rx .COMPLEX #90 tabs metformin 1,000 mg tablet See Rx Instructions .Route 02/24/24 07/27/24 Rx .COMPLEX #180 tabs pantoprazole 40 mg tablet,delayed See Rx Instructions .Route 04/03/24 07/27/24 Rx release .COMPLEX #90 tabs simvastatin 40 mg tablet See Rx Instructions .Route 04/03/24 07/27/24 Rx .COMPLEX #90 tabs finasteride 5 mg tablet See Rx Instructions .Route 04/27/24 07/27/24 Rx .COMPLEX #90 tabs amlodipine 10 mg tablet See Rx Instructions .Route 05/14/24 07/27/24 Rx .COMPLEX #90 tabs sildenafil 50 mg tablet See Rx Instructions .Route 07/20/24 07/27/24 History .COMPLEX PRN Sexual Activity furosemide 20 mg tablet See Rx Instructions .Route 07/24/24 07/27/24 Rx .COMPLEX #90 tabs Patient hx anesthesia problems: none Family hx anesthesia problems: none Results Review: All pre-operative results and documents have been reviewed as part of the pre-operative evaluation. PENDING SALE TO [facility] Past Medical History Medical History (Updated 07/27/24 @ 08:40 by Cosmo Guzman DO) B-cell lymphoma BPH (benign prostatic hyperplasia) CAD (coronary artery disease) DM2 (diabetes mellitus, type 2) Erectile dysfunction GERD (gastroesophageal reflux disease) Hyperlipidemia Hypertension Lymphoma Non-healing skin lesion Osteoarthritis Overweight Surgical History Surgical History (Updated 07/27/24 @ 08:40 by Cosmo Guzman DO) History of coronary artery stent placement x1, 2021 History of laminectomy History of right inguinal hernia History of total right knee replacement (TKR) History of umbilical hernia repair Hx of cataract surgery Family History Family History Mother Family history of type 2 diabetes mellitus Family history of obesity Brother Family history of malignant neoplasm of bone Sister Family history of type 2 diabetes mellitus Father Alcoholism Son Myocardial infarction Other Diabetes mellitus Hypertension Social History Social History Smoking packs per day: 1 Smoking cigarettes per day: 20.0 Years smoked: 40 Smoking pack-years: 40.00 Smoking status: Former smoker Tobacco type: cigarettes Second hand tobacco smoke exposure: Yes Smoking end date: 05/22/00 Additional smoking assessment comments: smoked 1 PPD for over 38 years, quit 22 years ago Alcohol intake: current Drinks per week: 1 Alcohol use details: on rare occasion, less than 10 drinks in the last year Substance use: never Substance use type: does not use Do You Feel Safe in your Home?: Yes Lack of Transportation: No Lack of Food: Never True Current Housing: I Have Housing Concerned About Future Housing: No Difficulty Paying Gas/Electric Bills: No Difficulty Paying for Meds: No Currently Unemployed: No Education: High School Diploma/GED Difficulty w/ Childcare or Family Care: No
[2024-07-27 11:45] VITALS: BP 147/86; PULSE 65; RESP 18; TEMP 36.5; O2SAT 99
[2024-07-27] MEDS: LACTATED RINGERS 1,000 ML 30 ML IV CONT (12:05)
[2024-07-27 12:07] LABS: Glucose Point of Care 118 mg/dl (65-105)
--- NOTE | 2024-07-27 13:34 | PM.IMHP ---
H&P: HPI History of Present Illness Date/Time: 07/27/24 13:34 Chief Complaint: History of lymphoma Narrative: This is a 78-year-old man who presents for Port-A-Cath removal. He reports no changes since last seen in the office. Review of Systems Review of Systems: All systems reviewed & are unremarkable except as noted in HPI and below Constitutional: Constitutional: Denies chills, Denies fever(s), Denies headache(s) and Denies weight loss Eyes: Eyes: Denies change in vision ENT: Denies dizziness, Denies headache(s), Denies neck mass and Denies throat swelling Cardiovascular: Cardiovascular: Denies chest pain, Denies lightheadedness and Denies dyspnea Respiratory: Respiratory: Denies cough, Denies dyspnea and Denies wheezing Gastrointestinal: Gastrointestinal: Denies abdominal pain, Denies change in bowel habits, Denies nausea and Denies vomiting Genitourinary: Genitourinary: Denies hematuria and Denies dysuria Musculoskeletal: Musculoskeletal: Reports as per HPI Integumentary/Breasts: Skin/Breast: Reports as per HPI Neurologic: Denies dizziness and Denies headache(s) Allergic/Immunologic: Allergic/Immunologic: Denies throat swelling and Denies wheezing [facility] Past Medical History Medical History (Updated 07/27/24 @ 08:40 by Cosmo Guzman DO) B-cell lymphoma BPH (benign prostatic hyperplasia) CAD (coronary artery disease) DM2 (diabetes mellitus, type 2) Erectile dysfunction GERD (gastroesophageal reflux disease) Hyperlipidemia Hypertension Lymphoma Non-healing skin lesion Osteoarthritis Overweight Surgical History Surgical History (Updated 07/27/24 @ 08:40 by Cosmo uGzman DO) History of coronary artery stent placement x1, 2021 History of laminectomy History of right inguinal hernia History of total right knee replacement (TKR) History of umbilical hernia repair Hx of cataract surgery Family History Family History Mother Family history of type 2 diabetes mellitus Family history of obesity Brother Family history of malignant neoplasm of bone Sister Family history of type 2 diabetes mellitus Father Alcoholism Son Myocardial infarction Other Diabetes mellitus Hypertension Social History Social History Smoking packs per day: 1 Smoking cigarettes per day: 20.0 Years smoked: 40 Smoking pack-years: 40.00 Smoking status: Former smoker Tobacco type: cigarettes Second hand tobacco smoke exposure: Yes Smoking end date: 05/22/00 Additional smoking assessment comments: smoked 1 PPD for over 38 years, quit 22 years ago Alcohol intake: current Drinks per week: 1 Alcohol use details: on rare occasion, less than 10 drinks in the last year Substance use: never Substance use type: does not use Do You Feel Safe in your Home?: Yes Lack of Transportation: No Lack of Food: Never True Current Housing: I Have Housing Concerned About Future Housing: No Difficulty Paying Gas/Electric Bills: No Difficulty Paying for Meds: No Currently Unemployed: No Education: High School Diploma/GED Difficulty w/ Childcare or Family Care: No Living arrangements: alone Additional living arrangements comments: . 3 adult children. 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 Gender identity (if verbalized by the patient): Male Spiritual care concerns: No Meds Home Medications and Allergies Home Medications Medication Instructions Recorded Confirmed Type blood sugar diagnostic (Contour #100 ea 02/01/22 07/27/24 Rx Next Test Strips) aspirin 81 mg tablet 81 mg PO DAILY 03/01/22 07/27/24 History tamsulosin 0.4 mg capsule See Rx Instructions .Route 12/13/23 07/27/24 Rx .COMPLEX #180 caps acetaminophen 500 mg tablet 1,000 mg PO Q6H PRN Pain
--- NOTE | 2024-07-27 13:35 | WPDHPUPDATE1 ---
History and Physical Update Update Date/Time: 07/27/24 13:35 History and Physical has been reviewed, including an updated exam of the patient. There are NO changes in the patient's condition. Risks, benefits, and alternatives have been discussed and questions answered. Patient agrees to proceed with procedure.
[2024-07-27] MEDS: LIDO 1%/EPINEPHRINE 1:100,000 50 ML VIAL 10 ML INFILTRATE (14:08)
[2024-07-27 14:25] VITALS: BP 116/47; PULSE 60; RESP 16; O2SAT 98
--- NOTE | 2024-07-27 14:27 | P.OP_ITS ---
Procedure Note - Detailed Date of Procedure 07/27/24 Pre-op Diagnosis b-cell lymphoma Post-op Diagnosis Same Procedure Performed Removal of Port-A-Cath Surgeon Mark López, DO Anesthesia MAC and Local (1% lidocaine with epinephrine) Indications This is a 78-year-old man who presents with a prior history of B-cell lymphoma. He had a port placed several years ago and has completed chemotherapy. He is no longer in any need of the port. Discussions were made with the patient about treatment options and decision was made to proceed with removal of Port-A-Cath. Findings The right chest Port-A-Cath was removed. This appeared to be a tunneled Port-A-Cath advancing up to the right internal jugular vein. After removing the port, pressure was held at the base of the neck for several minutes. No bleeding was identified. Description of Procedure Procedure as well as risks, benefits, and alternatives were discussed with the patient. Written consent was obtained and placed in chart prior to procedure. Patient was brought back to surgical suite. He was placed supine operating table. Time-out was done to confirm patient and procedure. IV sedation was administered by the anesthesia department. His right chest and neck area was prepped and draped in sterile fashion using Betadine prep. 1% lidocaine with epinephrine was infiltrated locally directly over the port. A 3 cm transverse incision was then made through the previous scar at the port on his right anterior chest using a 15 blade scalpel. Electrocautery was used for hemostasis and for dissection through the subcutaneous tissue. The port tubing was identified and then this was carefully dissected back to the port itself. Electrocautery was used to take down the scar tissue around the port. The port was then gently delivered through the skin incision. There did not appear to be any sutures holding the port in place within the subcu space. A 3-0 Vicryl [id number] suture was then placed along the track for the port tubing. The port was then slowly withdrawn while holding pressure at the base of the neck. Once the port tubing was completely removed pressure was held at the neck for about 5 minutes. The port and the catheter tip all appeared intact. The 3-0 Vicryl suture was tied down in place to close off the tract for the tubing. Iman's fascia was then reapproximated using 3-0 Vicryl simple interrupted s utures. The skin was then approximated using 4-0 Monocryl running subcuticular suture. Exofin glue was then applied on top. The patient was then awakened from anesthesia and transferred to recovery. Estimated Blood Loss 5 Complications No immediate complications Condition Stable Disposition Same day [facility] Billing Surgery - Charge Forward: Surgery Billing
[2024-07-27 14:36] LABS: Glucose Point of Care 124 mg/dl (65-105)
[2024-07-27 14:45] VITALS: BP 131/65; PULSE 68; RESP 16
== END 2024-07-27 14:55 | disposition home or self-care (01) ==
PROVIDERS: PCP Family Medicine; Visit Provider Surgery
PROC: (CPT 36589; principal; 2024-07-27 14:00)
DX: Z45.2 Encounter for adjustment and management of vascular access device (principal); C85.10 Unspecified B-cell lymphoma, unspecified site; Z92.21 Personal history of antineoplastic chemotherapy; I25.10 Atherosclerotic heart disease of native coronary artery without angina pectoris; I10 Essential (primary) hypertension; E11.9 Type 2 diabetes mellitus without complications; E78.5 Hyperlipidemia, unspecified; N40.0 Benign prostatic hyperplasia without lower urinary tract symptoms; Z95.5 Presence of coronary angioplasty implant and graft; Z87.891 Personal history of nicotine dependence; Z79.84 Long term (current) use of oral hypoglycemic drugs; Z79.82 Long term (current) use of aspirin; E66.9 Obesity, unspecified; Z68.32 Body mass index [BMI] 32.0-32.9, adult
CPT/HCPCS: 36590; 82948; J2704; J7120

== ENCOUNTER 2024-10-02 15:16 | Outpatient (CLI) | payer MEDICARE, SELFPAY ==
[2024-10-02 15:31] LABS: Basophils Absolute Auto 0.03 K/mm3 (0.00-0.10); Basophils Percent Auto 0.4 % (0.0-1.0); Eosinophils Absolute Auto 0.12 K/mm3 (0.02-0.50); Eosinophils Percent Auto 1.8 % (1.0-6.0); Hematocrit 37.3 % (37.0-46.0); Hemoglobin 12.3 g/dL (12.4-15.3); Immature Granulocyte Absolute 0.08 K/mm3 (0.00-0.00); Immature Granulocyte Percent A 1.2 % (0.0-0.0); Lymphocytes Absolute Auto 1.73 K/mm3 (1.10-4.50); Lymphocytes Percent Auto 25.7 % (18.0-42.0); Mean Platelet Volume 9.4 fl (8.7-11.0); Monocytes Absolute Auto 0.58 K/mm3 (0.10-0.90); Monocytes Percent Auto 8.6 % (2.0-11.0); Neutrophils Absolute Auto 4.19 K/mm3 (1.70-7.20); Neutrophils Percent Auto 62.3 % (50.0-70.0); Platelet Count Result 214 K/mm3 (150-420); Red Blood Count 3.97 M/mm3 (4.70-6.10); Red Cell Distribution Width 12.5 % (11.6-14.4); White Blood Count 6.7 K/mm3 (4.8-10.8)
[2024-10-02 16:21] LABS: Alanine Aminotransferase 34 U/L (16-63); Albumin Level 3.9 g/dL (3.4-5.0); Alkaline Phosphatase 82 U/L (46-116); Anion Gap 10 mmol/L (4-12); Aspartate Amino Transferase 13 U/L (15-37); Bilirubin,Total 0.5 mg/dL (0.00-1.00); Blood Urea Nitrogen 19 mg/dL (7-18); Calcium 9.8 mg/dL (8.5-10.1); Carbon Dioxide 28 mmol/L (21-32); Chloride 105 mmol/L (98-108); Cholesterol 144 mg/dL (0-200); Estimated Glomerular Filt Rate > 60; Glucose 151 mg/dL (70-99); HDL Direct 43 mg/dL (40-60); LDL Cholesterol Calculated 58 mg/dL (<130); Osmolality Calculated 301 mOsm/kg (285-295); Potassium 3.9 mmol/L (3.5-5.1); Sodium 143 mmol/L (136-145); Total Protein 6.6 g/dL (6.4-8.2); Triglycerides 217 mg/dL (0-150)
[2024-10-02 16:23] LABS: Creatinine Urine 94.86 mg/dL (40-278)
[2024-10-02 16:28] LABS: MALB Creatinine Ratio 180.7 mg/g (0-30); Microalbumin Urine Random 171.5 mg/L
[2024-10-02 16:29] LABS: Thyroid Stimulating Hormone Reflex 1.53 u/IU/mL (0.36-3.74)
== END 2024-10-02 15:17 | disposition home or self-care (01) ==
LOC: CHSLAB 15:17
PROVIDERS: PCP Family Medicine; Visit Provider Family Medicine
DX: C85.10 Unspecified B-cell lymphoma, unspecified site (principal); E11.9 Type 2 diabetes mellitus without complications; E03.9 Hypothyroidism, unspecified
CPT/HCPCS: 36415; 80053; 80061; 82043; 84443; 85025

== ENCOUNTER 2025-02-04 07:36 | Outpatient (CLI) | payer MEDICARE, SELFPAY ==
--- OUTSIDE RECORDS SUMMARY | 2025-02-04 07:39 | XMS_ITS | Referral Summary ---
Author Organization [facility] Address [facility] [place] [address] Care Team Providers Care Proposal Manager Writer Name Role Phone Geovany Jackson DO Primary Care Provider Allergies No known active allergies Medications acetaminophen (TYLENOL) 500 mg tablet Take 1,000 mg by mouth daily Active metFORMIN (GLUCOPHAGE) 1,000 mg tablet 2 Active losartan (COZAAR) 50 mg tablet Take 50 mg by mouth daily 2 Active simvastatin (ZOCOR) 40 mg tablet [address] (PROTONIX) 40 mg EC tablet 2 Active finasteride (PROSCAR) 5 mg tablet 2 Active furosemide (LASIX) 20 mg tablet 2 Active tamsulosin (FLOMAX) 0.4 mg extended release capsule Take 0.4 mg by mouth 2 (two) times a day 2 Active amLODIPine (NORVASC) 10 mg tablet Take 10 mg by mouth daily Active aspirin 81 mg enteric coated tabletIndications:A bnormal result of other cardiovascular function study,Hypertension associated with diabetes (HCC) Take 1 tablet (81 mg total) by mouth daily 30 tablet 11 2 Active Brilinta 90 mg tablet TAKE 1 TABLET BY MOUTH 2 TIMES A DAY. 60 tablet 1 3 Active Active Problems Problem Noted Date Diagnosed Date Coronary artery disease invo lving campo coronary artery of campo heart without angina pectoris 04/09/2022 Systolic ejection murmur 02/24/2022 Erectile dysfunction associa estiven with type 2 diabetes mellitus 02/24/2022 Hypertension associated with diabetes 02/24/2022 Abnormal result of other cardiovascular function study 02/24/2022 Hyperlipidemia associated with type 2 diabetes m osmin 02/24/2022 Social History Tobacco Use Types Packs/Day Years Used Date Smoking Tobacco: Former Cigarettes Q uit: 02/25/2000 Smokeless Tobacco: Never Tobacco Cessation:Counseling Given: Not Answered AUDIT-C Answer Date Recorded Q1: How often do you have a drink containing alc ohol? 2-3 times a week 02/24/2022 Average Number of Drinks Not on file 022 Q3: How often do you have si x or more drinks on one occasion? 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 Gender Identity Not on file Sexual Orientation Not on file Last Filed Vital Signs Vital Sign Reading Time Taken Comments Blood Pressure 120/60 09/09/2022 11:17 AM CDT Pulse 60 09/09/2022 11:17 AM CDT Temperature - - Respiratory Rate - - Oxygen Saturation 98% 09/09/2022 11:17 AM CDT Inhaled Oxygen Concentration - - Weight 95.3 kg (210 lb) 09/09/2022 11:17 AM CDT Height 175.3 cm (5' 9 ) 09/09/2022 11:17 AM CDT Body Mass Index 31.01 09/09/2022 11:17 AM CDT Plan of Treatment Not on file Procedures Procedure Name Priority Date/Time Associated Diagnosis Comments POCT LIPID PANEL Routine 02/24/2022 5:35 PM CDT Hyperlipidemia associated with type 2 diabetes mellitus (HCC) from Last 3 Months or Most Recently Relevant to Health Maintenance Results * POCT lipid panel (02/24/2022 5:35 PM CDT) Cholesterol, POC 146 mg/dL HDL, POC 36 mg/dL Triglycerides, POC 237 mg/dL LDL Cholesterol POC 63 mg/dL Chol/HDL Ratio, POC 4.1 Non-HDL Cholesterol, POC 110 mg/dL Cholesterol Total, POC 146 mg/dL Capillary blood 02/24/2022 5 :35 PM CDT Tony Uriostegui MD POINT OF CARE TEST ORDERA BLES Final Result from Last 3 Months or Most Recently Relevant to Health Maintenance Insurance MEDICARE [employer] MEDICARE [facility] Care Teams Proposal Manager Writer Relationship Specialty Start Date End Date Geovany Jackson DO [address] [place] [address] PCP - General Family Medicine 02/08/22
--- OUTSIDE RECORDS SUMMARY | 2025-02-04 07:39 | XMS_ITS | Clinical Summary ---
Author Organization [facility] Address [address] [place] [address] Care Team Providers Care Background Check Coordinator Name Role Phone None, Provider MD Primary Care Provider Unavaila ble Allergies No known active allergies Medications losartan 50 MG tabletIndication s:Increased Blood Pressure Take 50 mg by mouth daily. Indications: Raised Blood Pressure Active tamsulosin 0.4 MG CapIndications:U rinary Urgency Take 0.4 mg by mouth 2 (two) times a day. Indications: Urinary Urgency Active metFORMIN 1000 MG tabletIndication s:Diabetes Mellitus Take 1,000 mg by mouth 2 (two) times daily with meals. Indications: Diabetes Active simvastatin 40 MG tabletIndication s:Hypercholester olemia Take 40 mg by mouth nightly at bedtime. Indications: High Amount of Cholesterol in the Blood Active finasteride 5 MG tabletIndication s:Benign Prostatic Hypertrophy Take 5 mg by mouth nightly at bedtime. Indications: Benign Enlargement of Prostate Active Naproxen Sodium (ALEVE) 220 MG CapIndications:O steoarthritis Take 1 tablet by mouth daily. Indications: Joint Damage causing Pain and Loss of Function Takes every am with 1000mg of tylenol Active acetaminophen 500 MG tabletIndication s:Osteoarthritis Take 1,000 mg by mouth daily. Indications: Joint Damage causing Pain and Loss of Function Takes every am with 220 of aleve Active orphenadrine ER 100 MG TABLET SR 12 HR 12 hr tablet Take 1 tablet (100 mg total) by mouth 2 (two) times daily. 28 tablet 0 Active Family History Relation Status Comments Father Mother Social History Tobacco Use Types Packs/Day Years Used Date Smoking Tobacco: Former Cigarettes 1 37 0 07/28/1963 - 07/28/2000 Smokeless Tobacco: Never Alcohol Use Standard Drinks/Week Comments Yes 0 (1 standard drink = 0.6 oz pur e alcohol) rare AUDIT-C Answer Date Recorded Q1: How often do you have a drink containing alc ohol? Never 07/10/2020 Average Number of Drinks Not on file 020 Frequency of Binge Drinking Not on file 06/22 Sex and Gender Information Value Date Recorded Sex Assigned at Not on file Legal Sex Male 5:50 PM CDT Gender Identity Not on file Sexual Orientation Not on file Last Filed Vital Signs Vital Sign Reading Time Taken Comments Blood Pressure 158/89 07/18/2020 5:07 PM CDT Pulse 81 07/18/2020 5:07 PM CDT Temperature 36.8 C (98.2 F) 07/18/2020 12:49 PM CDT Respiratory Rate 20 07/18/2020 5:40 AM CDT Oxygen Saturation 96% 07/18/2020 5:07 PM CDT Inhaled Oxygen Concentration - - Weight 104.3 kg (230 lb) 07/10/2020 11:04 AM CDT Height 175.3 cm (5' 9 ) 07/15/2020 3:40 PM CDT Body Mass Index 33.97 07/10/2020 11:04 AM CDT Plan of Treatment Health Maintenance Due Date Last Done Comments Hepatitis C 1963 DTaP, Tdap and Td Vaccines ( 1 - Tdap) 1966 Zoster Vaccines (1 of 2) 1997 Annual Medicare Wellness Visit 2012 Pneumococcal Vaccine: 65+ Ye ars (1 of 1 - PCV) 2012 RSV Immunization or 60+ Years (1 - 1-dose 75+ series) 2022 COVID-19 Vaccine ( - 2023-2 5 season) 2024 Influenza Adult (#1) 2024 Meningococcal B Vaccine Aged Out No l onger eligible based on patient's age to complete this topic Meningococcal Vaccine Aged Out No bren dariela eligible based on patient's age to complete this topic RSV Immunizations Under 20 Months Aged Out No longer eligible based on patient's age to complete this topic Insurance [place] [address] [place] [id number] [facility] Care Teams Background Check Coordinator Relationship Specialty Start Date End Date None, Provider, PCP - General 07/15/20
--- OUTSIDE RECORDS SUMMARY | 2025-02-04 07:39 | XMS_ITS | Patient Health Summary ---
Author Organization [facility] [employer] Address [address] [facility] [place] [address] Care Team Providers Care Criminal Justice Social Worker Name Role Phone Filiberto Zimmerman MD Unavailable [phone] Geovany Jackson DO Primary Care Provider [phone] Note from [facility] [place],non-owned Affiliates and Associated Physician Practices is amultiple site organization consisting of ambulatory clinics and hospital sitesin [place], [place], [place] and [place]. This disclosure is being madepursuant to the Care Everywhere program and may not contain all information available regarding this patient. Last updated 18.[facility] Allergies No known active allergies Medications * Be aware that medications may not be up to date on this document. Alwaysverify current medications with the patient. * lisinopril (PRINIVIL; ZESTRIL) 10 MG tablet Take 10 mg by mouth once daily after breakfast. * omeprazole (PRILOSEC) 20 MG capsule Take 20 mg by mouth daily before breakfast. Instructed to take AM of surgery * simvastatin (ZOCOR) 40 MG tablet Take 40 mg by mouth once daily after breakfast. * aspirin 325 MG tablet Take 325 mg by mouth once daily. * Cholecalciferol (VITAMIN D3) 26277 UNITS CAPS(Started 01/08/2013) Take 50,000 Units by mouth every 7 days. * predniSONE (DELTASONE) 5 MG tablet(Started 01/08/2013) Take 1 Tab by mouth once daily. * tramadol ER (ULTRAM ER) 200 MG tablet(Started 01/22/2013) Take 1 Tab by mouth once daily. * tamsulosin (FLOMAX) 0.4 MG capsule Take 0.4 mg by mouth once daily Take 30 minutes after a meal at the same time each day. * aspirin (ASPIRIN) 81 MG tablet Take 81 mg by mouth once daily * Naproxen Sodium 220 MG * ticagrelor (Brilinta) 90 MG tablet(Started 07/11/2023) Take 1 (one) tablet by mouth 2 times daily * pantoprazole EC (Protonix) 40 MG tablet(Started 08/10/2024) Take 1 (one) tablet by mouth every morning * metFORMIN (Glucophage) 1000 MG tablet Take 1 (one) tablet by mouth 2 times daily * losartan (Cozaar) 50 MG tablet Take 1 (one) tablet by mouth once daily * furosemide (Lasix) 20 MG tablet(Started 07/24/2024) TAKE 1 TABLET BY MOUTH EVERY MORNING NEEDED FOR EDEMA * finasteride (Proscar) 5 MG tablet Take 1 (one) tablet by mouth once daily * amLODIPine (Norvasc) 10 MG tablet Take 1 (one) tablet by mouth once daily * acetaminophen (Tylenol) 500 MG tablet Take 2 (two) tablets by mouth once daily Active Problems Problem Noted Date Diagnosed Date Primary osteoarthritis of left knee 09/21/2024 Presence of artificial knee joint 03/22/2016 S/P TKR (total knee replacement) 01/03/2013 Social History Tobacco Use Types Packs/Day Years Used Date Smoking Tobacco: Former Cigarettes 1 39 0 07/28/1961 - 07/28/2000 Smokeless Tobacco: Former Comments:chewed tobacco for only 1 month while getting off cigarettes Alcohol Use Standard Drinks/Week Comments Yes 0 (1 standard drink = 0.6 oz pur e alcohol) social/rare PHQ-2 Answer Date Recorded Patient Health Questionnaire-2 Score 0 09/11/2024 Sex and Gender Information Value Date Recorded Sex Assigned at Not on file Gender Identity Not on file Sexual Orientation Not on file Last Filed Vital Signs Vital Sign Reading Time Taken Comments Blood Pressure 134/80 01/03/2013 10:41 AM QUALITY IMPROVEMENT SPECIALIST Pulse 64 01/03/2013 10:41 AM QUALITY IMPROVEMENT SPECIALIST Temperature 36.9 C (98.5 F) 03/12/2012 6:43 AM CDT Respiratory Rate 18 03/12/2012 6:43 AM CDT Oxygen Saturation 99% 03/12/2012 6:43 AM CDT Inhaled Oxygen Concentration - - Weight 99.8 kg (220 lb) 09/11/2024 11:37 AM CDT Height 175.3 cm (5' 9 ) 09/11/2024 11:37 AM CDT Body Mass Index 32.49 09/11/2024 11:37 AM CDT Procedures * XR KNEE BILAT 3VW(Performed 09/11/2024) Performed for Status post right knee replacement, Left knee pain, unspecified chronicity * XR KNEE RIGHT 3VW(Performed 03/22/2016) Performed for Presence of artificial knee joint, right * XR KNEE RIGHT 3VW(Performed 04/02/2013) Performed for Osteoarthrosis, Unspecified Whether Generalized Or Localized, Lower Leg * THONY BLOOD SCREEN W/REFLEX TITER(Performed 01/03/2013) Performed for Osteoarthritis of wrist, Intra-abdominal lymphadenopathy * CYCLIC CITRUL PEPTIDE ANTIBODY IGG/IGA (CCP)(Performed 01/03/2013) Performed for Osteoarthritis of wrist, Knee osteoarthritis * RHEUMATOID FACTOR BLOOD QUANTITATIVE(Performed 01/03/2013) Performed for Osteoarthritis of wrist, Knee osteoarthritis * C-REACTIVE PROTEIN(Performed 01/03/2013) Performed for Osteoarthritis of wrist, Knee osteoarthritis * VITAMIN D 25-HYDROXY(Performed 01/03/2013) Performed for Osteoarthritis of wrist, Knee osteoarthritis, Intra-abdominal lymphadenopathy * ANGIOTENSIN CONVERTING ENZYME BLOOD(Performed 01/03/2013) Performed for Intra-abdominal lymphadenopathy * IMAGING/RADIOLOGY/XRAY RESULTS ORDER(Performed 11/29/2012) * IMAGING/RADIOLOGY/XRAY RESULTS ORDER(Performed 11/29/2012) * XR WRIST BILAT 3VW OR MORE(Performed 10/06/2012) Performed for Pain in limb * IP CONSULT TO HOME HEALTH CARE(Performed 03/12/2012) * HGB HCT PANEL(Performed 03/11/2012) * HGB HCT PANEL(Performed 03/10/2012) * COMPREHENSIVE METABOLIC PANEL(Performed 02/03/2012) Performed for Other specified pre-operative examination * CBC W AUTO DIFFERENTIAL(Performed 02/03/2012) Performed for Other specified pre-operative examination * CULTURE MSSA/MRSA(Performed 02/03/2012) Performed for Other specified pre-operative examination * EKG 12-LEAD(Performed 02/03/2012) Performed for Other specified pre-operative examination * XR KNEE BILAT 3VW(Performed 01/21/2012) Performed for Knee pain Results * XR Knee Bilat 3Vw (09/11/2024 11:47 AM CDT) Only the most recent of2 resultswithin the time period is included. Narrative [facility] [address] - 09/11/2024 11:48 AM CDT Please see progress note in Epic for results. Filiberto Zimmerman MD DIAGNOSTIC IMAGING O RDHENOK [facility] [address] * XR KNEE 3 VW RIGHT (03/22/2016 2:39 PM CDT) Only the most recent of2 resultswithin the time period is included. Anatomical Region Laterality Modality Lower Extremity Radiographic Lucia ging Narrative 03/22/2016 4:26 PM CDT Susana Lombardo, RT(R) 03/22/2016 4:26 PM See progress notes for results Filiberto Zimmerman MD DIAGNOSTIC IMAGING O RDERASIDNEY * CYCLIC CITRUL PEPTIDE ANTIBODY IGG/IGA (CCP) (01/03/2013 11:35 AM QUALITY IMPROVEMENT SPECIALIST) CCP Antibodies IgG/IgA 7 0 - 19 units [facility] INSURANCE BILL Comment: Negative <20 Weak positive 20 - 39 Moderate positive 40 - 59 Strong positive >59 BLOOD SPECIMEN / Unknown 01/03/2013 11:35 AM QUALITY IMPROVEMENT SPECIALIST 01/03/2013 8:41 PM QUALITY IMPROVEMENT SPECIALIST Narrative Resulting Agency Comment [facility] [address] [phone] Arash Boone MD LAB - SEROLOGY OR DERABLES [facility] INSURANCE BILL * RHEUMATOID FACTOR BLOOD QUANTITATIVE (RF) (01/03/2013 11:35 AM QUALITY IMPROVEMENT SPECIALIST) Rheumatoid Factor 7.9 0.0 - 13.9 IU/mL [facility] INSURANCE BILL Blood specimen (specimen) BLOOD SPECIMEN / Unknown 01/03/2013 11:35 AM QUALITY IMPROVEMENT SPECIALIST 01/03/2013 8:41 PM QUALITY IMPROVEMENT SPECIALIST Narrative Resulting Agency Comment [facility] [place] [address] [facility] [phone] Arash Boone MD LAB - CHEMISTRY O RDHENOK Performing Organization Address City/[facility]/ZIP Co de Phone Number [facility] INSURANCE BILL * C-REACTIVE PROTEIN (01/03/2013 11:35 AM QUALITY IMPROVEMENT SPECIALIST) C-Reactive Protein 1.6 0.0 - 4.9 mg/L [facility] INSURANCE BILL Blood specimen (specimen) BLOOD SPECIMEN / Unknown 01/03/2013 11:35 AM QUALITY IMPROVEMENT SPECIALIST 01/03/2013 8:41 PM QUALITY IMPROVEMENT SPECIALIST Narrative Resulting Agency Comment [facility] [address] [facility] [phone] Arash Boone MD LAB - CHEMISTRY O RDHENOK Performing Organization Address [facility] de Phone Number [facility] INSURANCE BILL * THONY BLOOD SCREEN W/REFLEX TITER (01/03/2013 11:35 AM QUALITY IMPROVEMENT SPECIALIST) THONY Negative [facility] INSURANCE BILL Comment: Negative <1:80 Borderline 1:80 Positive >1:80 Blood specimen (specimen) BLOOD SPECIMEN / Unknown 01/03/2013 11:35 AM QUALITY IMPROVEMENT SPECIALIST 01/03/2013 8:41 PM QUALITY IMPROVEMENT SPECIALIST Narrative Resulting Agency Comment [place] [id number] [facility] [phone] Arash Boone MD LAB - CHEMISTRY O RYAN Performing Organization Address [facility]/ZIP Co de Phone Number [facility] INSURANCE BILL * (ABNORMAL) VITAMIN D 25-HYDROXY (01/03/2013 11:35 AM QUALITY IMPROVEMENT SPECIALIST) Vitamin D, 25 Hydroxy 25.5(L) 30.0 - 100.0 ng/mL [facility] INSURANCE BILL Comment: Vitamin D deficiency has been defined by the [place] of Medicine and an Endocrine Society practice guideline as a level of serum 25-OH vitamin D less than 20 ng/mL (1,2). The Endocrine Society went on to further define vitamin D insufficiency as a level between 21 and 29 ng/mL (2). 1. IOM ([place] of Medicine). 2010. Dietary reference intakes for calcium and D. [place]: The National Academies Press. 2. Kristina MF, Cesar NC, Chantel BARKLEY, et al. Evaluation, treatment, and prevention of vitamin D deficiency: an Endocrine Society clinical practice guideline. JCEM. 2010; 96(5):1911-30. Blood specimen (specimen) BLOOD SPECIMEN / Unknown 01/03/2013 11:35 AM QUALITY IMPROVEMENT SPECIALIST 01/03/2013 8:41 PM QUALITY IMPROVEMENT SPECIALIST Narrative Resulting Agency [facility] [address] [facility] [phone] Arash Boone MD LAB - CHEMISTRY O RDERASIDNEY Performing Organization Address City/[facility]/ZIP Co de Phone Number [facility] INSURANCE BILL * ANGIOTENSIN CONVERT ENZYME BLOOD (01/03/2013 11:35 AM QUALITY IMPROVEMENT SPECIALIST) Angiotensin-Con verting Enzyme 17 12 - 68 U/L [facility] INSURANCE BILL Blood specimen (specimen) BLOOD SPECIMEN / Unknown 01/03/2013 11:35 AM QUALITY IMPROVEMENT SPECIALIST 01/03/2013 8:40 PM QUALITY IMPROVEMENT SPECIALIST Narrative Resulting Agency Comment [facility] [address] [facility] [phone] Arash Boone MD LAB - CHEMISTRY O RDERABLES Performing Organization Address [facility] Co de Phone Number [facility] INSURANCE BILL * IMAGING/RADIOLOGY/XRAY RESULTS ORDER (11/29/2012) Only the most recent of2 resultswithin the time period is included. Anatomical Region Laterality Modality Other Provider Unknown IMAGING * XR WRIST BILAT 3 VIEWS (10/06/2012 9:27 AM QUALITY IMPROVEMENT SPECIALIST) Anatomical Region Laterality Modality Wrist / Hand, Upper Extremity Ra diographic Imaging 10/06/2012 3:37 PM QUALITY IMPROVEMENT SPECIALIST Narrative 10/06/2012 4:16 PM QUALITY IMPROVEMENT SPECIALIST THREE VIEWS RIGHT WRIST THREE VIEWS LEFT WRIST INDICATION: Right wrist pain and left wrist pain. FINDINGS: Right wrist: There is moderate to severe arthritic change at the first carpometacarpal joint. There is moderate arthritic change at the inferior radioulnar joint. There is a corticated ossific fragment noted at the volar aspect of the wrist compatible with sequela of remote injury. There is chondrocalcinosis. There is osteopenia. There is mild bony hypertrophy at the fourth and fifth metacarpophalangeal joints. There is severe radioscaphoid joint space narrowing. Left wrist: There is severe hypertrophic degenerative change at the first metacarpal joint. There is severe radioscaphoid joint space narrowing. There is moderate degenerative change at the inferior radial ulnar joint. There is no acute fracture. Procedure Note Geovany Rodriguez MD - 10/06/2012 THREE VIEWS RIGHT WRIST THREE VIEWS LEFT WRIST INDICATION: Right wrist pain and left wrist pain. FINDINGS: Right wrist: There is moderate to severe arthritic change at the first carpometacarpal joint. There is moderate arthritic change at the inferior radioulnar joint. There is a corticated ossific fragment noted at the volar aspect of the wrist compatible with sequela of remote injury. There is chondrocalcinosis. There is osteopenia. There is mild bony hypertrophy at the fourth and fifth metacarpophalangeal joints. There is severe radioscaphoid joint space narrowing. Left wrist: There is severe hypertrophic degenerative change at the first metacarpal joint. There is severe radioscaphoid joint space narrowing. There is moderate degenerative change at the inferior radial ulnar joint. There is no acute fracture. Atul Esparza MD DIAGNOSTIC IMAGING O RDERABLES * IP CONSULT TO HOME CARE (03/12/2012 12:14 PM CDT) Chelo Whaley LPN - 03/12/2012 12:14 PM CDT Chleo Vazquez LPN 03/12/2012 12:14 PM Home care orders received. Prior to admission, patient was set up with [facility] per MD's request. All information will be forwarded to them via fax at prior to discharge. Chelo Vazquez LPN [facility] [phone] If patient discharges after 4:30pm or over the weekend, please notify [facility] @ prior to discharge and fax final discharge orders to . Procedure Note Chelo Vazquez LPN - 03/12/2012 12:13 PM CDT Home care orders received. Prior to admission, patient was set up with [facility] per MD's request. All information will beforwarded to them via fax at prior to discharge. Chelo Vazquez LPN [facility] [phone] If patient discharges after 4:30pm or over the weekend, please notify [facility] @ prior to discharge and fax finaldischarge orders to . Filiberto Zimmerman MD INPATIENT ANCILLARY CONSULT * HGB HCT PANEL (03/11/2012 5:25 AM CDT) Only the most recent of2 resultswithin the time period is included. Hemoglobin 13.2 13.0 - 18.0 gm/dl [facility] Hematocrit 39.1 39.0 - 54.0 % [facility] Blood specimen (specimen) BLOOD SPECIMEN / Unknown 03/11/2012 5:25 AM CDT 03/11/2012 5:39 AM CDT Filiberto Zimmerman MD LAB - HEMATOLOGY ORD ERABLES [facility] [address] [place] [address] * (ABNORMAL) CBC W AUTO DIFFERENTIAL (02/03/2012 3:37 PM CDT) WBC 10.8 4.5 - 11.0 1000/mm3 [facility] RBC 5.18 4.7 - 6.1 10X6 [facility] Hemoglobin 15.2 13.0 - 18.0 gm/dL [facility] Hematocrit 46.9 39.0 - 54.0 % [facility] MCV 90.5 80.0 - 99.0 fl [facility] MCH 29.3 25.0 - 31.0 pg [facility] MCHC 32.4 32.0 - 36.0 gm/dL [facility] RDW 12.8 11.5 - 14.5 % [facility] Platelet Count 226 130.0 - 400.0 1000/mm3 [facility] Granulocytes % 70.8(H) 40.0 - 70.0 % [facility] Lymphocytes % 19.6(L) 22.0 - 40.0 % [facility] Monocytes % 6.4 2.0 - 10.0 % [facility] Eosinophils % 2.9 0.0 - 6.0 % [facility] Basophils % 0.3 0.0 - 3.0 % [facility] Granulocytes Absolute 7.68 1.8 - 7.7 [facility] Lymphocytes Absolute 2.13 1.0 - 5.4 [facility] Monocytes Absolute 0.69 0.1 - 1.1 [facility] Eosinophils Absolute 0.31 0.0 - 0.7 [facility] Basophils Absolute 0.03 0.0 - 0.2 [facility] Comment Manual Diff Not Indicated [facility] Blood specimen (specimen) BLOOD SPECIMEN / Unknown 02/03/2012 3:37 PM CDT 02/03/2012 3:37 PM CDT Filiberto Zimmerman MD LAB - HEMATOLOGY ORD ERABLES [facility] [address] [place] [address] * (ABNORMAL) COMPREHENSIVE METABOLIC PANEL (02/03/2012 3:37 PM CDT) BUN 17 7.0 - 21.0 mg/dL [facility] Sodium 140 136 - 145 mmol/L [facility] Potassium 4.1 3.5 - 5.1 mmol/L [facility] Chloride 107 98.0 - 107.0 mmol/L [facility] Glucose 119(H) 74 - 106 mg/dL [facility] Creatinine 0.88 0.5 - 1.3 mg/dL [facility] AST 23 5 - 40 U/L [facility] Alkaline Phosphatase 81 38 - 126 U/L [facility] Calcium 9.0 8.5 - 10.1 mg/dL [facility] Bilirubin Total 0.5 0.2 - 1.0 mg/dL [facility] Albumin 3.8 3.4 - 5.0 gm/dL [facility] Protein Total 6.9 6.4 - 8.2 gm/dL [facility] CO2 25 22.0 - 30.0 mmol/L [facility] ALT 43 12 - 78 U/L [facility] eGFR by MDRD 87 mL/min/1.7 3m2 [facility] Anion Gap 8.0 [facility] Blood specimen (specimen) BLOOD SPECIMEN / Unknown 02/03/2012 3:37 PM CDT 02/03/2012 3:37 PM CDT Filiberto Zimmerman MD LAB - CHEMISTRY [place] [place] Performing Organization Address [facility] Co de Phone Number [facility] [address] [place] [address] * CULTURE MSSA/MRSA (02/03/2012 2:30 PM CDT) Result [facility] Comment: Final NO growth S.aureus/NO growth S.aureus (MRSA) SPECIMEN FROM NASAL FOSSAE / Unknown 02/03/2012 2:30 PM CDT 02/03/2012 3:41 PM CDT Narrative Resulting Agency Comment Performed By [facility];[address] [place] [address];[place] [address] Filiberto Zimmerman MD LAB - MICROBIOLOGY O RDERABLES Performing Organization Address [facility] de Phone Number [facility] [address] [place] [address] * EKG 12-LEAD (02/03/2012 12:56 PM CDT) Ventricular Rate 73 BPM [facility] Atrial Rate 73 BPM [facility] P-R Interval 140 ms [facility] QRS Duration ms 98 ms [facility] Q-T Interval ms 390 ms [facility] QTC Calculation (Bezet) 429 ms [facility] Calculated P [place] 50 degrees [facility] Calculated R [place] 2 degrees [facility] Calculated T [place] 7 degrees [facility] Interpretation EKG Normal sinus rhythm Normal ECG No previous ECGs available Confirmed by MD ADILSON, SILVA ([id number]) on 02/04/2012 9:05:15 AM [facility] 02/03/2012 12:5 6 PM CDT 02/04/2012 9:05 AM CDT Narrative Transcriptions Document, Scanned - 02/04/2012 8:38 AM CDT Document, Scanned - 02/04/2012 9:07 AM CDT Filiberto Zimmerman MD ECG ORDERABLES [facility] Care Teams Criminal Justice Social Worker Relationship Specialty Start Date End Date Geovany Jackson DO [address] [place], [place] [id number] PCP - General Family Medicine 09/11/24 Filiberto Zimmerman MD Orthopedic Surgery 01/21/12
--- OUTSIDE RECORDS SUMMARY | 2025-02-04 07:39 | XMS_ITS | Clinical Summary ---
Author Organization [facility] Address [address] [facility] [place] [address] Care Team Providers Care Transit Operator Name Role Phone Filiberto Zimmerman MD Unavailable [phone] Geovany Jackson DO Primary Care Provider [phone] Source Comments [facility],non-owned Affiliates and Associated Physician Practices is amultiple site organization consisting of ambulatory clinics and hospital sitesin [place], [place], [place] and [place]. This disclosure is being madepursuant to the Care Everywhere program and may not contain all information available regarding this patient. Last updated 18.[facility] Allergies No known active allergies Medications * Be aware that medications may not be up to date on this document. Alwaysverify current medications with the patient. Medication Sig Dispensed Refills Start Date End Date Status lisinopril (PRINIVIL; ZESTRIL) 10 MG tablet Take 10 mg by mouth once daily after breakfast. Active omeprazole (PRILOSEC) 20 MG capsule Take 20 mg by mouth daily before breakfast. Instructed to take AM of surgery Active simvastatin (ZOCOR) 40 MG tablet Take 40 mg by mouth once daily after breakfast. Active aspirin 325 MG tablet Take 325 mg by mouth once daily. Active Cholecalciferol (VITAMIN D3) 41598 UNITS CAPS Take 50,000 Units by mouth every 7 days. 15 Cap 0 01/08/2013 Active Additional Information Patient not taking.Reported on 03/22/2016 predniSONE (DELTASONE) 5 MG tablet Take 1 Tab by mouth once daily. 30 Tab 0 01/08/2013 Active Additional Information Patient not taking.Reported on 03/22/2016 tramadol ER (ULTRAM ER) 200 MG tablet Take 1 Tab by mouth once daily. 30 Tab 0 01/22/2013 Active tamsulosin (FLOMAX) 0.4 MG capsule Take 0.4 mg by mouth once daily Take 30 minutes after a meal at the same time each day. Active aspirin (ASPIRIN) 81 MG tablet Take 81 mg by mouth once daily Active Naproxen Sodium 220 MG Active ticagrelor (Brilinta) 90 MG tablet Take 1 (one) tablet by mouth 2 times daily 07/11/2023 Active pantoprazole EC (Protonix) 40 MG tablet Take 1 (one) tablet by mouth every morning 08/10/2024 Active metFORMIN (Glucophage) 1000 MG tablet Take 1 (one) tablet by mouth 2 times daily Active losartan (Cozaar) 50 MG tablet Take 1 (one) tablet by mouth once daily Active furosemide (Lasix) 20 MG tablet TAKE 1 TABLET BY MOUTH EVERY MORNING NEEDED FOR EDEMA 07/24/2024 Active finasteride (Proscar) 5 MG tablet Take 1 (one) tablet by mouth once daily Active amLODIPine (Norvasc) 10 MG tablet Take 1 (one) tablet by mouth once daily Active acetaminophen (Tylenol) 500 MG tablet Take 2 (two) tablets by mouth once daily Active Active Problems Problem Noted Date Diagnosed Date Primary osteoarthritis of left knee 09/21/2024 Presence of artificial knee joint 03/22/2016 S/P TKR (total knee replacement) 01/03/2013 Overview (01/03/2013): Right; Dr. Zimmerman 02/2012 Family History Medical History Relation Name Comments Cancer Brother 'bone ca' Diabetes Sister Relation Name Status Comments Brother Sister Social History Tobacco Use Types Packs/Day Years [...] Comments Blood Pressure 134/80 01/03/2013 10:41 AM DIRECTOR OF INSTRUCTIONAL TECHNOLOGY Pulse 64 01/03/2013 10:41 AM DIRECTOR OF INSTRUCTIONAL TECHNOLOGY Temperature 36.9 C (98.5 F) 03/12/2012 6:43 AM CDT Respiratory Rate 18 03/12/2012 6:43 AM CDT Oxygen Saturation 99% 03/12/2012 6:43 AM CDT Inhaled Oxygen Concentration - - Weight 99.8 kg (220 lb) 09/11/2024 11:37 AM CDT Height 175.3 cm (5' 9 ) 09/11/2024 11:37 AM CDT Body Mass Index 32.49 09/11/2024 11:37 AM CDT Plan of Treatment Upcoming Encounters Date Type Department Care Team (Late st Contact Info) Description 02/07/2025 4:40 PM CDT Office Visit [facility] [address] [phone] [place] [id number] [address] Health Maintenance Due Date Last Done Comments HEPATITIS C SCREENING 11/30/1965 DTAP/TDAP/TD VACCINES (1 - Tdap) 1966 PNEUMOCOCCAL VACCINE 50+ (1 of 1 - PCV) 1997 ZOSTER VACCINE (1 of 2) 1997 Respiratory Syncytial Virus (RSV) Vaccine Pt: or over 60 yrs (1 - 1-dose 75+ series) 2022 COVID-19 VACCINE ( - 2023-2 5 season) 2024 INFLUENZA VACCINE (#1) 2024 DEPRESSION SCREENING 11/21/2024 MEDICARE AWV CALENDAR YEAR 2024 HEPATITIS B VACCINE Aged Out No longe r eligible based on patient's age to complete this topic HIB VACCINE Aged Out No longer eligi ble based on patient's age to complete this topic HPV VACCINE Aged Out No longer eligi ble based on patient's age to complete this topic MENINGOCOCCAL (Group B) VACC INE SHARED DECISION-MAKING Aged Out No longer eligibl e based on patient's age to complete this topic MENINGOCOCCAL GROUPS A/C/Y/W VACCINE Aged Out No longer eligible b ased on patient's age to complete this topic Care Teams Transit Operator Relationship Specialty Start Date End Date Geovany Jackson DO [address] [place] [id number] PCP - General Family Medicine 09/11/24 Filiberto Zimmerman MD Orthopedic Surgery 01/21/12
--- OUTSIDE RECORDS SUMMARY | 2025-02-04 07:39 | XMS_ITS | Clinical Summary ---
Author Organization [facility] Address [facility] [place] [address] Care Team Providers Care Siding Stapler Name Role Phone Geovany Jackson DO Primary [...] Diagnosed Date Coronary artery disease invo lving [place] coronary artery of [place] heart without angina pectoris 04/09/2022 Systolic ejection murmur 02/24/2022 Erectile dysfunction associa estiven with type 2 diabetes mellitus 02/24/2022 Hypertension associated with diabetes 02/24/2022 Abnormal result of other cardiovascular function study 02/24/2022 Hyperlipidemia associated with type 2 diabetes m ellitus 02/24/2022 Surgical History Surgery Date Site/Laterality Comments HERNIA REPAIR BACK SURGERY KNEE SURGERY CORONARY ANGIOPLASTY WITH STENT PLACEMENT 03/02/2022 Medical History Medical History Date Comments Hypertension Diabetes mellitus (HCC) Cancer (HCC) Cataract Arthritis Enlarged prostate Family History Medical History Relation Name Comments Bone cancer Brother Relation Name Status Comments Brother (Age 45) Father (Age 45) Mother (Age 87) Sister Alive Social History Tobacco Use Types Packs/Day Years [...] on file 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 Gender Identity Not on file Sexual Orientation Not on file Obstetrics History Last Filed Vital Signs Vital Sign Reading [...] 09/09/2022 11:17 AM CDT Plan of Treatment Health Maintenance Due Date Last Done Comments Albumin Creatinine Ratio, Urine 1945 Depression Screening 1945 Fall Risk Assessment 1945 Hemoglobin A1C 1945 Hepatitis C Screening 1945 eGFR 1945 Dilated Eye Exam 1945 Foot Exam 1945 DTaP/Tdap/Td Vaccine (1 - Tdap) 1958 Hepatitis B Screening 1965 Zoster Vaccine (1 of 2) 1997 Abdominal Aortic Aneurysm (A AA) Screen 2012 Well Visit 65+ 2012 Lipid Panel 02/24/2023 02/24/2022 Covid-19 Vaccine ( season) 2024 08/26/2021, 01/13/2021, 12/23/2020 Influenza Vaccine (#1) 2024 08/21/2013, 2011 Pneumococcal vaccine 65+ Completed 021, 11/21/2014, 08/21/2013 Procedures Procedure Name Priority Date/Time Associated Diagnosis [...] Health Maintenance Insurance MEDICARE [facility] Care Teams Siding Stapler Relationship Specialty Start Date End Date Geovany Jackson DO [address] [place] [address] PCP - General Family Medicine 02/08/22
--- OUTSIDE RECORDS SUMMARY | 2025-02-04 07:39 | XMS_ITS | Referral Summary ---
Author Organization [facility] Address [address] [facility] [place] [address] Care Team Providers Care Balance Bridge Assembler Name Role Phone Filiberto Zimmerman MD Unavailable [phone] Geovany Jackson DO Primary Care Provider [phone] Source Comments [facility],non-owned Affiliates and Associated Physician Practices is amultiple site organization consisting of ambulatory clinics and hospital sitesin [place], [place], [place] and [place]. This disclosure is being madepursuant to the Care Everywhere program and may not contain all information available regarding this patient. Last updated 18.[facility] Allergies No known active allergies Medications * [...] mouth once daily. Active Cholecalciferol (VITAMIN D3) 69891 UNITS CAPS Take 50,000 Units by mouth [...] 01/03/2013 Overview (01/03/2013): Right; Dr. Zimmerman 02/2012 Social History Tobacco Use Types Packs/Day Years [...] Comments Blood Pressure 134/80 01/03/2013 10:41 AM ART DIRECTOR Pulse 64 01/03/2013 10:41 AM ART DIRECTOR Temperature 36.9 C (98.5 F) 03/12/2012 6:43 [...] Description 02/07/2025 4:40 PM CDT Office Visit [facility] [address] [place] [phone] [place] [id number] [address] Care Teams Balance Bridge Assembler Relationship Specialty Start Date End Date Geovany Jackson DO [address] [place] [address] PCP - General Family Medicine 09/11/24 Filiberto Zimmerman MD Orthopedic Surgery 01/21/12
--- NOTE | 2025-02-04 07:40 | EST_ITS ---
Patient Info Name: Shreyas Dyer Age: 79 years : 1945 Gender: Male Ht: 69 in Wt: 218 lbs BSA: 2.23 m2 HR: 62 bpm BP: 121 / 69 mmHg Heart Rhythm: Right Bundle Branch Block, Sinus Rhythm Technical Quality: Good Exam Date: 02/04/2025 8:53 AM Exam Location: Echo Lab Patient Status: Outpatient Admit Date: 02/04/2025 Staff Ordering Physician: Geovany Jackson DO Attending Provider: Geovany Jackson DO Exam Type: CA stress radha w NM Study Info A regadenoson stress test was performed. History/Risk Factors Hypertension: Yes Dyslipidemia: Yes Coronary Artery Disease (CAD) Yes Diabetes Mellitus: Yes Tobacco Use: Former History/Risk Factors H/O lymphoma. H/O stent placement X1 in 2021. Summary 1. 1. Negative lexiscan stress test for ischemic ST changes by ECG criteria. 2. 2. Stable hemodynamics throughout the test. 3. 3. Nuclear scan to follow and will be reported separately. Please correlate with it. 4. 4. Patient informed of the above results. Protocol: LEXISCAN Stress ECG Details Stage: REST Duration (min): 15 min : 25 sec HR (bpm): 63 SBP (mmHg): 121 DBP (mmHg): 69 Stage: REST Duration (min): 16 min : 36 sec HR (bpm): 69 SBP (mmHg): 121 DBP (mmHg): 69 Stage: STAGE 1 Duration (min): 0 min : 55 sec HR (bpm): 71 SBP (mmHg): 121 DBP (mmHg): 69 Stage: RECOVERY Duration (min): 0 min : 4 sec HR (bpm): 73 SBP (mmHg): 121 DBP (mmHg): 69 Stage: RECOVERY Duration (min): 1 min : 4 sec HR (bpm): 86 SBP (mmHg): 121 DBP (mmHg): 69 Stage: RECOVERY Duration (min): 2 min : 4 sec HR (bpm): 79 SBP (mmHg): 112 DBP (mmHg): 66 Stage: RECOVERY Duration (min): 3 min : 4 sec HR (bpm): 80 SBP (mmHg): 116 DBP (mmHg): 65 Stage: RECOVERY Duration (min): 4 min : 4 sec HR (bpm): 76 SBP (mmHg): 117 DBP (mmHg): 64 Stage: RECOVERY Duration (min): 5 min : 4 sec HR (bpm): 75 SBP (mmHg): 110 DBP (mmHg): 57 Stage: RECOVERY Duration (min): 6 min : 4 sec HR (bpm): 76 SBP (mmHg): 118 DBP (mmHg): 63 Stage: RECOVERY Duration (min): 6 min : 23 sec HR (bpm): 76 SBP (mmHg): 118 DBP (mmHg): 63 Rest HR: 69 bpm Peak HR: 86 bpm Rest Sys BP: 121 mmHg Peak Sys BP: 118 mmHg Max Pred HR: 143 bpm % Max Pred HR: 60 % Target HR: 122 bpm Max RPP: 10,148 bpm*mmHg BP Response: Normal blood pressure response Termination Reason: Completed Protocol Cardiac Symptoms: None Total Time: 0 min : 55 sec Rest Adrian BP: 69 mmHg Peak Adrian BP: 63 mmHg Total Dose: 0.4 mg Resting ECG Sinus rhythm with incomplete RBBB. Stress ECG No abnormal ST/T wave changes. Arrhythmias No arrhythmias were observed during the examination. Report Signatures
--- NOTE | 2025-02-04 12:54 | WPDCARIOSTRE ---
Nuclear Stress Test INDICATIONS Indications: Chest pain PROCEDURE Procedure Performed: Myocardial Perf Spect-Multi Procedure: Patient underwent a lexiscan stress test and immediately was injected with 31.8 mCi of cardiolyte. Multiple tomographic images. These are of good quality. There is no evidence of perfusion defect with stress imaging. A separate resting images were obtained after patient was injected with 10.1 mCi of cardiolyte. Multiple tomographic images. These are of good quality. There is no evidence of perfusion defect with stress imaging. CONCLUSION Conclusion: 1. Normal myocardial perfusion imaging demonstrating no perfusion defects with stress or resting imaging. 2. No evidence of reversible ischemia. 3. Left ventriculogram demonstrates normal measured ejection fraction of 73% with no wall motion abnormalities. 4. TID Score 1.13 is normal.
== END 2025-02-04 07:37 | disposition home or self-care (01) ==
LOC: CHSIMG 07:36
PROVIDERS: PCP Family Medicine; Visit Provider Family Medicine
DX: I25.10 Atherosclerotic heart disease of native coronary artery without angina pectoris (principal); R06.02 Shortness of breath; I73.9 Peripheral vascular disease, unspecified
CPT/HCPCS: 78452; 93017; A9502; J2785

== ENCOUNTER 2025-02-12 08:45 | Outpatient (CLI) | payer MEDICARE, SELFPAY ==
--- NOTE | ~2025-02-12 | US_ITS ---
EXAMINATION: US arterial ankle brachial ind DATE: 02/12/2025 09:12 INDICATION: Peripheral arterial occlusive disease. TECHNIQUE: Segmental pressures and plethysmographic and Doppler waveforms of the brachial and lower e xtremity arteries were obtained. COMPARISON: None. FINDINGS: Right and left brachial artery pressures of 131 mm Hg and 128 mm Hg, respectively, are concordant (no rmal difference <= 30 mmHg). The right ankle-brachial index (DIONNA) is 1.19 (normal >= 0.9-1.0). The right great toe-brachial index (TBI) is 1.17 (normal >= 0.65). Arterial Doppler waveforms are triphasic with brisk systolic upstroke s at both right posterior tibial and dorsalis pedis arteries. The left DIONNA is 1.24. The left TBI is 1.21. Arterial Doppler waveforms are triphasic with brisk systo lic upstrokes at both left posterior tibial and dorsalis pedis arteries. IMPRESSION: 1. No evident arterial occlusive disease with normal bilateral ABIs and TBIs and normal triphasic wav eforms in the bilateral posterior tibial and dorsalis pedis arteries. Reviewed, dictated and finalized at location B. IMPRESSION: 1. No evident arterial occlusive disease with normal bilateral ABIs and TBIs an d normal triphasic waveforms in the bilateral posterior tibial and dorsalis ped is arteries.
--- OUTSIDE RECORDS SUMMARY | 2025-02-12 09:20 | XMS_ITS | Clinical Summary ---
Author Organization [facility] Address [address] [facility] [place] [address] Care Team Providers Care Music Industry Internship Name Role Phone Filiberto Zimmerman MD Unavailable [phone] Geovany Jackson DO Primary Care Provider [phone] Source Comments [facility],non-owned Affiliates and Associated Physician Practices is amultiple site organization consisting of ambulatory clinics and hospital sitesin [place], [place], [place] and [place]. This disclosure is being madepursuant to the Care Everywhere program and may not contain all information available regarding this patient. Last updated [email or web address] [facility] Allergies No known active allergies Medications * [...] mouth once daily. Active Cholecalciferol (VITAMIN D3) 15427 UNITS CAPS Take 50,000 Units by mouth [...] (two) tablets by mouth once daily Active Hospital, Clinic, or Other Facility Administered Medication Ordered Dose Route Frequency Start Date End Date Status methylPREDNISolone acetate (DEPO-Medrol) injection 80 mgIndications:Primary osteoarthritis of left knee 80 mg IX ONCE 02/07/2025 02/08/20 25 Ended lidocaine PF (Xylocaine MPF) 1 % injection 3 mLIndications:Primary osteoarthritis of left knee 3 mL IX ONCE 02/07/2025 02/08/20 25 Ended Active Problems Problem Noted Date Diagnosed Date Primary osteoarthritis of left knee 09/21/2024 Presence of artificial knee joint 03/22/2016 S/P TKR (total knee replacement) 01/03/2013 Overview (01/03/2013): Right; Dr. Zimmerman 02/2012 Encounters Date Type Department Care Team Description 02/07/2025 4:40 PM CDT Office Visit [facility] [address] [place] [address], [address] [phone] Filiberto Zimmerman MD Primary osteoarthritis of left knee (Primary Dx) from Last 3 Months Family History Medical History Relation Name Comments [...] Comments Blood Pressure 134/80 01/03/2013 10:41 AM DITCH CLEANER Pulse 64 01/03/2013 10:41 AM DITCH CLEANER Temperature 36.9 C (98.5 F) 03/12/2012 6:43 [...] Care Team (Late st Contact Info) Description 05/09/2025 2:30 PM CDT Office Visit [facility] [address] [place] [phone] [place] [id number] [address] Health Maintenance Due Date Last Done Comments [...] age to complete this topic Care Teams Music Industry Internship Relationship Specialty Start Date End Date Geovany Jackson DO [address] [place] [address] PCP - General Family Medicine 09/11/24 Filiberto Zimmerman MD Orthopedic Surgery 01/21/12
--- OUTSIDE RECORDS SUMMARY | 2025-02-12 09:20 | XMS_ITS | Referral Summary ---
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
--- OUTSIDE RECORDS SUMMARY | 2025-02-12 09:20 | XMS_ITS | Clinical Summary ---
Author Organization [facility] Address [address] [place] [address] Care Team Providers Care Reordering Clerk Name Role Phone None, Provider MD Primary [...] age to complete this topic Insurance MEDICARE [facility] Care Teams Reordering Clerk Relationship Specialty Start Date End Date None, Provider, PCP - General 07/15/20
--- OUTSIDE RECORDS SUMMARY | 2025-02-12 09:20 | XMS_ITS | Clinical Summary ---
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
== END 2025-02-12 08:46 | disposition home or self-care (01) ==
PROVIDERS: PCP Family Medicine; Visit Provider Family Medicine
DX: I73.9 Peripheral vascular disease, unspecified (principal)
CPT/HCPCS: 93922

== ENCOUNTER 2025-04-22 07:03 | Outpatient (CLI) | payer MEDICARE, SELFPAY ==
--- OUTSIDE RECORDS SUMMARY | 2025-04-22 07:07 | XMS_ITS | Referral Summary ---
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
--- OUTSIDE RECORDS SUMMARY | 2025-04-22 07:07 | XMS_ITS | Clinical Summary ---
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
--- OUTSIDE RECORDS SUMMARY | 2025-04-22 07:07 | XMS_ITS | Clinical Summary ---
Author Organization [facility] [employer] Address [address] [facility] [place] [address] Care Team Providers Care Fitness Supervisor Name Role Phone Filiberto Zimmreman MD Unavailable [phone] Geovany Jackson DO Primary Care Provider [phone] Source Comments [facility] [employer],non-owned Affiliates and Associated Physician Practices is amultiple site organization consisting of ambulatory clinics and hospital sitesin [place], [place], [place] and [place]. This disclosure is being madepursuant to the Care Everywhere program and may not contain all information available regarding this patient. Last updated 18.[employer] Allergies No known active allergies Medications * Be aware that medications may not be up to date on this document. Alwaysverify current medications with the patient. lisinopril (PRINIVIL; ZESTRIL) 10 MG tablet Take [...] mouth once daily. Active Cholecalciferol (VITAMIN D3) 34768 UNITS CAPS Take 50,000 Units by mouth every 7 days. 15 Cap 0 3 Active Additional Information Patient not taking.Reported on 03/22/2016 predniSONE (DELTASONE) 5 MG tablet Take 1 Tab by mouth once daily. 30 Tab 0 3 Active Additional Information Patient not taking.Reported on 03/22/2016 tramadol ER (ULTRAM ER) 200 MG tablet Take 1 Tab by mouth once daily. 30 Tab 0 3 Active tamsulosin (FLOMAX) 0.4 MG capsule Take 0.4 mg by mouth once daily Take 30 minutes after a meal at the same time each day. Active aspirin (ASPIRIN) 81 MG tablet Take 81 mg by mouth once daily Active Naproxen Sodium 220 MG Active ticagrelor (Brilinta) 90 MG tablet Take 1 (one) tablet by mouth 2 times daily 3 Active pantoprazole EC (Protonix) 40 MG tablet Take 1 (one) tablet by mouth every morning 4 Active metFORMIN (Glucophage) 1000 MG tablet Take 1 (one) tablet by mouth 2 times daily Active losartan (Cozaar) 50 MG tablet Take 1 (one) tablet by mouth once daily Active furosemide (Lasix) 20 MG tablet TAKE 1 TABLET BY MOUTH EVERY MORNING NEEDED FOR EDEMA 4 Active finasteride (Proscar) 5 MG tablet Take [...] Description 02/07/2025 4:40 PM CDT Office Visit [facility] [address] [place] [address], [address] [place] [phone] Filiberto Zimmerman MD Primary osteoarthritis of [...] at Not on file Legal 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 Male 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 Gender Identity Not on file Sexual Orientation Not on file Last Filed Vital Signs Vital Sign Reading Time Taken Comments Blood Pressure 134/80 01/03/2013 10:41 AM CHIEF ACCOUNTING OFFICER Pulse 64 01/03/2013 10:41 AM CHIEF ACCOUNTING OFFICER Temperature 36.9 C (98.5 F) 03/12/2012 6:43 AM CDT Respiratory Rate 18 03/12/2012 6:43 AM CDT Oxygen Saturation 99% 03/12/2012 6:43 AM CDT Inhaled Oxygen Concentration - - Weight 99.8 kg (220 lb) 09/11/2024 11:37 AM CDT Height 175.3 cm (5' 9) 09/11/2024 11:37 AM CDT Body Mass Index 32.49 09/11/2024 11:37 AM CDT Plan of Treatment Upcoming Encounters Date Type Department Care Team (Late st Contact Info) Description 05/09/2025 2:30 PM CDT Office Visit [facility] [address] [phone] [place] [address] [address] Health Maintenance Due Date Last Done Comments HEPATITIS C SCREENING 11/30/1965 DTAP/TDAP/TD VACCINES (1 - Tdap) 1966 PNEUMOCOCCAL VACCINE 50+ (1 of 1 - PCV) 1997 ZOSTER VACCINE (1 of 2) 1997 Respiratory Syncytial Virus (RSV) Vaccine Pt: or over 60 yrs (1 - 1-dose 75+ series) 2022 COVID-19 VACCINE (1 - 2023-2 5 season) 2024 DEPRESSION SCREENING 11/21/2024 MEDICARE AWV CALENDAR YEAR 2024 INFLUENZA VACCINE (Season Ended) 2025 HEPATITIS B VACCINE Aged Out No longe [...] patient's age to complete this topic Insurance AETNA MEDICARE ADV Care Teams Fitness Supervisor Relationship Specialty Start Date End Date Geovany Jackson DO [address] [place] [address] PCP - General Family Medicine 09/11/24 Filiberto Zimmerman MD Orthopedic Surgery 01/21/12
[2025-04-22 07:17] LABS: Basophils Absolute Auto 0.05 K/mm3 (0.00-0.10); Basophils Percent Auto 0.7 % (0.0-1.0); Eosinophils Absolute Auto 0.41 K/mm3 (0.02-0.50); Hematocrit 34.8 % (37.0-46.0); Hemoglobin 11.1 g/dL (12.4-15.3); Immature Granulocyte Absolute 0.07 K/mm3 (0.00-0.00); Lymphocytes Absolute Auto 1.89 K/mm3 (1.10-4.50); Lymphocytes Percent Auto 27.6 % (18.0-42.0); Mean Corpuscular HGB Conc 31.9 g/dL (32-36); Mean Corpuscular Hemoglobin 30.8 pg (27.0-31.0); Mean Corpuscular Volume 96.7 fL (78.0-102.0); Mean Platelet Volume 9.9 fl (8.7-11.0); Monocytes Absolute Auto 0.68 K/mm3 (0.10-0.90); Monocytes Percent Auto 9.9 % (2.0-11.0); Neutrophils Absolute Auto 3.75 K/mm3 (1.70-7.20); Neutrophils Percent Auto 54.8 % (50.0-70.0); Platelet Count Result 204 K/mm3 (150-420); Red Cell Distribution Width 12.4 % (11.6-14.4); White Blood Count 6.9 K/mm3 (4.8-10.8)
[2025-04-22 08:24] LABS: Alanine Aminotransferase 27 U/L (6-50); Albumin Level 4.1 g/dL (3.5-5.1); Alkaline Phosphatase 73 U/L (38-126); Anion Gap 7 mmol/L (4-12); Aspartate Amino Transferase 26 U/L (17-59); Bilirubin,Total 0.7 mg/dL (0.2-1.3); Blood Urea Nitrogen 24 mg/dL (9-20); Calcium 9.8 mg/dL (8.4-10.2); Carbon Dioxide 26 mmol/L (22-30); Chloride 107 mmol/L (98-107); Estimated Glomerular Filt Rate 55; Glucose 132 mg/dL (65-110); Osmolality Calculated 296 mOsm/kg (285-295); Potassium 4.5 mmol/L (3.4-5.0); Sodium 140 mmol/L (137-145); Total Protein 6.2 g/dL (6.3-8.2)
[2025-04-22 14:36] LABS: Prostate Specific Antigen 0.6 ng/mL (< OR = 4.0)
== END 2025-04-22 07:04 | disposition home or self-care (01) ==
PROVIDERS: PCP Family Medicine; Visit Provider Internal Medicine Hematology
DX: C85.10 Unspecified B-cell lymphoma, unspecified site (principal); N40.0 Benign prostatic hyperplasia without lower urinary tract symptoms
CPT/HCPCS: 36415; 80053; 84153; 85025

== ENCOUNTER 2025-07-09 00:31 | Day surgery (SDC) | payer MEDICARE, SELFPAY ==
[2025-06-27 10:02] VITALS: BMI 31.8
--- OUTSIDE RECORDS SUMMARY | 2025-07-09 00:35 | XMS_ITS | Clinical Summary ---
Author Organization [facility] Address [address] [place] [address] Care Team Providers Care Cyber Incident Analyst Name Role Phone None, Provider MD Primary [...] 11:04 AM CDT Height 175.3 cm (5' 9) 07/15/2020 3:40 PM CDT Body Mass Index 33.97 07/10/2020 11:04 AM CDT Plan of Treatment Health Maintenance Due Date Last Done Comments Hepatitis C 1963 DTaP, Tdap and Td Vaccines ( 1 - Tdap) 1966 Pneumococcal Vaccine: 50+ Ye ars (1 of 1 - PCV) 1997 Zoster Vaccines (1 of 2) 1997 Annual Medicare Wellness Visit 2012 RSV Immunization or 60+ Years (1 - 1-dose 75+ series) 2022 COVID-19 Vaccine ( - 2023-2 5 season) 2024 Meningococcal B Vaccine Aged Out No l onger eligible based on patient's age to complete this topic Meningococcal Vaccine Aged Out No bren dariela eligible based on patient's age to complete this topic RSV Immunizations Under 20 Months Aged Out No longer eligible based on patient's age to complete this topic Insurance MEDICARE [facility] Care Teams Cyber Incident Analyst Relationship Specialty Start Date End Date None, Provider, PCP - General 07/15/20
--- OUTSIDE RECORDS SUMMARY | 2025-07-09 00:35 | XMS_ITS | Clinical Summary ---
Author Organization [facility] [employer] Address [address] [facility] [place] [address] Care Team Providers Care Kelp Or Seagrass Gatherer Name Role Phone Filiberto Zimmerman MD Unavailable [phone] Geovany Jackson DO Primary Care Provider [phone] Source Comments [facility] [employer],non-owned Affiliates and Associated Physician Practices is amultiple site organization consisting of ambulatory clinics and hospital sitesin [place], [place], [place] and [place]. This disclosure is being madepursuant to the Care Everywhere program and may not contain all information available regarding this patient. Last updated 18.[employer] Allergies No known active allergies Medications * [...] mouth once daily. Active Cholecalciferol (VITAMIN D3) 97188 UNITS CAPS Take 50,000 Units by mouth [...] (two) tablets by mouth once daily Active torsemide (Demadex) 20 MG tablet Take 1 (one) tablet by mouth every morning 5 Active Active Problems Problem Noted Date Diagnosed Date Primary osteoarthritis of left knee 09/21/2024 Presence of artificial knee joint 03/22/2016 S/P TKR (total knee replacement) 01/03/2013 Overview (01/03/2013): Right; Dr. 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 Gender Identity Not on file Sexual Orientation Not on file Last Filed Vital Signs Vital Sign Reading Time Taken Comments Blood Pressure 134/80 01/03/2013 10:41 AM STRAP CUTTER Pulse 64 01/03/2013 10:41 AM STRAP CUTTER Temperature 36.9 C (98.5 F) 03/12/2012 6:43 AM CDT Respiratory Rate 18 03/12/2012 6:43 AM CDT Oxygen Saturation 99% 03/12/2012 6:43 AM CDT Inhaled Oxygen Concentration - - Weight 99.8 kg (220 lb) 09/11/2024 11:37 AM CDT Height 175.3 cm (5' 9) 09/11/2024 11:37 AM CDT Body Mass Index 32.49 09/11/2024 11:37 AM CDT Plan of Treatment Health Maintenance Due Date Last Done Comments HEPATITIS C SCREENING 11/30/1963 DTAP/TDAP/TD VACCINES (1 - Tdap) 1966 PNEUMOCOCCAL VACCINE 50+ (1 of 1 - PCV) 1997 ZOSTER VACCINE (1 of 2) 1997 Respiratory Syncytial Virus (RSV) Vaccine Pt: or over 60 yrs (1 - 1-dose 75+ series) 2022 COVID-19 VACCINE ( - 2023-2 5 season) 2024 DEPRESSION SCREENING 11/21/2024 MEDICARE AWV CALENDAR YEAR 2024 INFLUENZA VACCINE (#1) 2025 HEPATITIS B VACCINE Aged Out No [...] topic Insurance AETNA MEDICARE ADV Care Teams Kelp Or Seagrass Gatherer Relationship Specialty Start Date End Date Geovany Jackson DO [address] [place] [id number] PCP - General Family Medicine 09/11/24 Filiberto Zimmerman MD Orthopedic Surgery 01/21/12
--- OUTSIDE RECORDS SUMMARY | 2025-07-09 00:35 | XMS_ITS | Clinical Summary ---
Author Organization [facility] Address [facility] [place] [address] Care Team Providers Care Maxillofacial Surgeon Name Role Phone Geovany Jackson DO Primary [...] Diagnosed Date Coronary artery disease invo lving [place] coronary artery of [place] heart without angina pectoris 04/09/2022 Systolic ejection [...] on file Legal Sex Male 8:08 PM [employer] Gender Identity Not on file Sexual Orientation [...] 2024 08/26/2021, 01/13/2021, 12/23/2020 Influenza Vaccine (#1) 2025 08/21/2013, 2011 Pneumococcal vaccine 65+ Completed 021, [...] Health Maintenance Insurance MEDICARE [facility] Care Teams Maxillofacial Surgeon Relationship Specialty Start Date End Date Geovany Jackson DO [address] [place] [address] PCP - General Family Medicine 02/08/22
[2025-07-09 07:47] VITALS: BP 134/82; PULSE 64; RESP 18; TEMP 36.6; O2SAT 99
--- NOTE | 2025-07-09 07:59 | WPDANESEPPF ---
Anes - Initial Pre Proc Eval Procedure: Operation Date: 07/09/25 08:30 Proposed Procedures p Colonoscopy - De Sheridan MD Date/Time: 07/09/25 07:59 Surgeon: De Sheridan MD Pre Op Diagnosis: Personal history of colon polyps, unspecified Patient Data Age: 79 Gender: M Height: 1.75 m Weight: 97.4 kg Last Vital Signs Temp 36.6 C 07/09/25 07:47 Pulse 64 07/09/25 07:47 Resp 18 07/09/25 07:47 BP 134/82 07/09/25 07:47 Pulse Ox 99 07/09/25 07:47 O2 Del Method Room Air 07/09/25 07:47 Allergies Allergy/AdvReac Type Severity Reaction Status Date / Time No Known Allergies Allergy Verified 06/27/25 09:45 Home Medications ?Medication ?Instructions ?Recorded ?Confirmed ?Type blood sugar diagnostic (Contour #100 ea 02/01/22 07/27/24 Rx Next Test Strips) aspirin 81 mg tablet 81 mg PO DAILY 03/01/22 07/09/25 History acetaminophen 500 mg tablet 1,000 mg PO Q6H PRN Pain 02/14/24 06/27/25 History naproxen sodium 220 mg capsule 220 mg PO BID PRN Pain 02/22/24 06/27/25 History (Aleve) sildenafil 50 mg tablet See Rx Instructions .Route 07/20/24 06/27/25 History .COMPLEX PRN Sexual Activity losartan 50 mg tablet See Rx Instructions .Route 10/12/24 07/09/25 Rx .COMPLEX #90 tabs simvastatin 40 mg tablet See Rx Instructions .Route 11/02/24 07/09/25 Rx .COMPLEX #90 tabs tamsulosin 0.4 mg capsule See Rx Instructions .Route 11/28/24 07/09/25 Rx .COMPLEX #180 caps pantoprazole 40 mg tablet,delayed See Rx Instructions .Route 02/05/25 07/09/25 Rx release .COMPLEX #90 tabs amlodipine 10 mg tablet See Rx Instructions .Route 04/16/25 07/09/25 Rx .COMPLEX #90 tabs finasteride 5 mg tablet See Rx Instructions .Route 04/16/25 07/09/25 Rx .COMPLEX #90 tabs metformin 1,000 mg tablet See Rx Instructions .Route 04/16/25 07/09/25 Rx .COMPLEX #180 tabs torsemide 20 mg tablet See Rx Instructions .Route 04/16/25 07/09/25 Rx .COMPLEX #90 tabs Patient hx anesthesia problems: none Family hx anesthesia problems: none Results Review: All pre-operative results and documents have been reviewed as part of the pre-operative evaluation. [facility] Past Medical History Medical History Lymphoma CAD (coronary artery disease) Non-healing skin lesion Erectile dysfunction B-cell lymphoma Overweight DM2 (diabetes mellitus, type 2) Osteoarthritis BPH (benign prostatic hyperplasia) GERD (gastroesophageal reflux disease) Hypertension Hyperlipidemia Surgical History Surgical History History of coronary artery stent placement x1, 2021 History of right inguinal hernia History of laminectomy History of total right knee replacement (TKR) History of umbilical hernia repair Hx of cataract surgery Family History Family History Mother Family history of type 2 diabetes mellitus Family history of obesity Brother Family history of malignant neoplasm of bone Sister Family history of type 2 diabetes mellitus Father Alcoholism Son Myocardial infarction Other Diabetes mellitus Hypertension Social History Social History Smoking packs per day: 1 Smoking cigarettes per day: 20.0 Years smoked: 40 Smoking pack-years: 40.00 Smoking status: Former smoker Tobacco type: cigarettes Second hand tobacco smoke exposure: Yes Smoking end date: 05/22/00 Additional smoking assessment comments: smoked 1 PPD for over 38 years, quit 22 years ago Alcohol intake: current Drinks per week: 1 Alcohol use details: on rare occasion, less than 10 drinks in the last year Substance use: never Substance use type: does not use Do You Feel Safe in your Home?: Yes Lack of Transportation: No Lack of Food: Never True Current Housing: I Have Housing Concerned About Future Housing: No Difficulty Paying Gas/Electric Bills: No Difficulty Paying for Meds: No Currently Unemployed: No Education: High School Diploma/GED Difficulty w/ Childcare or Family Care: No Living arrangements: alone Additional living arrangements comments: . 3 adult children. 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 Gender identity (if verbalized by the patient): Male Spiritual care concerns: No Anes - Eval Final PreProcedure Day of Procedure 07/09/25 07:59 Patient weight: obese Heart: regular rate and rhythm Lungs: clear to auscultation Airway: Mallampati scale class II Neurological: alert and oriented Last oral intake: >/= 8 hours ASA classification: III Emergent: no Anesthetic plan: proceed Anesthesia type and monitoring: general GIVS and standard monitoring Results Review: All pre-operative results and documents have been reviewed as part of the pre-operative evaluation. Informed Consent: The patient's anesthetic plan and its attendant risks and benefits were discussed with the patient/family/POA. Questions were solicited and answers provided to the satisfaction of the patient/family/POA.
[2025-07-09] MEDS: LACTATED RINGERS 1,000 ML 150 ML IV CONT (08:02)
--- NOTE | 2025-07-09 08:14 | PM.HPGS ---
History of Present Illness History of Present Illness Consent: Risks, benefits, and alternatives have been discussed and questions answered. Patient agrees to proceed with procedure. Chief complaint: Personal history of colon polyps, unspecified Narrative: Shreyas Dyer is a 79 year old male with colon polyp 1 year ago Review of Systems Review of Systems: All systems reviewed & are unremarkable except as noted in HPI and below PMFSH Past Medical History Medical History (Updated 07/09/25 @ 08:15 by De Sheridan MD) Colon polyp Lymphoma CAD (coronary artery disease) Non-healing skin lesion Erectile dysfunction B-cell lymphoma Overweight DM2 (diabetes mellitus, type 2) Osteoarthritis BPH (benign prostatic hyperplasia) GERD (gastroesophageal reflux disease) Hypertension Hyperlipidemia Surgical History Surgical History History of coronary artery stent placement x1, 2021 History of right inguinal hernia History of laminectomy History of total right knee replacement (TKR) History of umbilical hernia repair Hx of cataract surgery Family History Family History Mother Family history of type 2 diabetes mellitus Family history of obesity Brother Family history of malignant neoplasm of bone Sister Family history of type 2 diabetes mellitus Father Alcoholism Son Myocardial infarction Other Diabetes mellitus Hypertension Social History Social History Smoking packs per day: 1 Smoking cigarettes per day: 20.0 Years smoked: 40 Smoking pack-years: 40.00 Smoking status: Former smoker Tobacco type: cigarettes Second hand tobacco smoke exposure: Yes Smoking end date: 05/22/00 Additional smoking assessment comments: smoked 1 PPD for over 38 years, quit 22 years ago Alcohol intake: current Drinks per week: 1 Alcohol use details: on rare occasion, less than 10 drinks in the last year Substance use: never Substance use type: does not use Do You Feel Safe in your Home?: Yes Lack of Transportation: No Lack of Food: Never True Current Housing: I Have Housing Concerned About Future Housing: No Difficulty Paying Gas/Electric Bills: No Difficulty Paying for Meds: No Currently Unemployed: No Education: High School Diploma/GED Difficulty w/ Childcare or Family Care: No Living arrangements: alone Additional living arrangements comments: . 3 adult children. 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 Gender identity (if verbalized by the patient): Male Spiritual care concerns: No Meds Home Medications and Allergies Home Medications ?Medication ?Instructions ?Recorded ?Confirmed ?Type blood sugar diagnostic (Contour #100 ea 02/01/22 07/27/24 Rx Next Test Strips) aspirin 81 mg tablet 81 mg PO DAILY 03/01/22 07/09/25 History acetaminophen 500 mg tablet 1,000 mg PO Q6H PRN Pain 02/14/24 06/27/25 History naproxen sodium 220 mg capsule 220 mg PO BID PRN Pain 02/22/24 06/27/25 History (Aleve) sildenafil 50 mg tablet See Rx Instructions .Route 07/20/24 06/27/25 History .COMPLEX PRN Sexual Activity losartan 50 mg tablet See Rx Instructions .Route 10/12/24 07/09/25 Rx .COMPLEX #90 tabs simvastatin 40 mg tablet See Rx Instructions .Route 11/02/24 07/09/25 Rx .COMPLEX #90 tabs tamsulosin 0.4 mg capsule See Rx Instructions .Route 11/28/24 07/09/25 Rx .COMPLEX #180 caps pantoprazole 40 mg tablet,delayed See Rx Instructions .Route 02/05/25 07/09/25 Rx release .COMPLEX #90 tabs amlodipine 10 mg tablet See Rx Instructions .Route 04/16/25 07/09/25 Rx .COMPLEX #90 tabs finasteride 5 mg tablet See Rx Instructions .Route 04/16/25 07/09/25 Rx .COMPLEX #90 tabs metformin 1,000 mg tablet See Rx Instructions .Route 04/16/25 07/09/25 Rx .COMPLEX #180 tabs torsemide 20 mg tablet See Rx Instructions .Route 04/16/25 07/09/25 Rx .COMPLEX #90 tabs Allergies Allergy/AdvReac Type Severity Reaction Status Date / Time No Known Allergies Allergy Verified 06/27/25 09:45 Vital Signs Vital Signs - 24 hr 07/09/25 07:47 Temperature 97.9 F Pulse Rate 64 Respiratory Rate 18 Blood Pressure 134/82 Pulse Oximetry 99 Oxygen Delivery Room Air Exam Const: General: comfortable and no acute distress HENMT: Face/Nose/Sinus: Normal nares present Eyes: General: appearance normal, both eyes and all related structures Neck: Neck: no JVD Resp: Auscultation: clear to auscultation bilaterally Cardio: Rate: regular rate Rhythm: regular rhythm GI: Inspection: non-distended GI Palp: Yes Soft to palpation Skin: General skin exam: normal color Neuro: General: gait normal Speech: normal speech Extrem: General: normal to inspection Psych: Mental Status: mental status grossly normal Assessment and Plan Assessment and plan (1) Colon polyp: Code(s): K63.5 - Polyp of colon Status: Acute Assessment and Plan: colonoscopy
--- NOTE | 2025-07-09 08:34 | S_PTH ---
PATIENT: Shreyas Dyer LOC: [facility]#:[id number] AGE/SX: 79/M ROOM: RE07/09/[address]: De Sheridan MD : 1945 BED: DIS: 07/09/2025 SPEC #: [id number] RECD: 07/09/25 08:57 STATUS: CALEB ALAN #: [id number] MARKY: 07/09/25 08:[address]: De Sheridan DEPT: [facility] Surgical RECD BY: Jose Luis Canela ENTERED: 07/09/25 08:57 SP TYPE: Surgical OTHR DR: DO Hector Luis MD Tissues: A - Colon Polypectomy Procedures: Hematoxylin and Eosin Stain Gross and Microscopic Level 4
[2025-07-09 08:37] VITALS: BP 118/49; PULSE 58; RESP 23; O2SAT 96
[2025-07-09 08:47] VITALS: BP 135/73; PULSE 55; RESP 14; O2SAT 99
[2025-07-09 08:57] VITALS: BP 136/80; PULSE 55; RESP 20; O2SAT 100
== END 2025-07-09 09:07 | disposition home or self-care (01) ==
PROVIDERS: PCP Family Medicine; Visit Provider Internal Medicine Gastroenterology
PROC: 0DJD8ZZ Inspection of Lower Intestinal Tract, Via Natural or Artificial Opening Endoscopic (ICD-10-PCS; CPT 45378; principal; 2025-07-09 08:30)
DX: Z12.11 Encounter for screening for malignant neoplasm of colon (principal); D12.2 Benign neoplasm of ascending colon; K64.8 Other hemorrhoids; K57.30 Diverticulosis of large intestine without perforation or abscess without bleeding; E78.5 Hyperlipidemia, unspecified; I10 Essential (primary) hypertension; N52.9 Male erectile dysfunction, unspecified; E11.9 Type 2 diabetes mellitus without complications; N40.0 Benign prostatic hyperplasia without lower urinary tract symptoms; K21.9 Gastro-esophageal reflux disease without esophagitis; I25.10 Atherosclerotic heart disease of native coronary artery without angina pectoris; M19.90 Unspecified osteoarthritis, unspecified site; E66.9 Obesity, unspecified; Z68.31 Body mass index [BMI] 31.0-31.9, adult; Z79.82 Long term (current) use of aspirin; Z79.1 Long term (current) use of non-steroidal anti-inflammatories (NSAID); Z79.84 Long term (current) use of oral hypoglycemic drugs; Z98.890 Other specified postprocedural states; Z98.1 Arthrodesis status; Z95.5 Presence of coronary angioplasty implant and graft; Z87.891 Personal history of nicotine dependence; Z85.72 Personal history of non-Hodgkin lymphomas; Z80.8 Family history of malignant neoplasm of other organs or systems; Z82.49 Family history of ischemic heart disease and other diseases of the circulatory system
CPT/HCPCS: 45385; 82948; 88305; J7120

== ENCOUNTER 2025-08-08 14:23 | Outpatient (RCR) | payer MEDICARE, SELFPAY ==
--- NOTE | 2025-08-08 15:30 | OPREHPOC ---
Outpatient Therapy Plan of Care This is a Multidisciplinary Plan of Care that may contain components documented by all disciplines (PT, OT, and ST.) PT Problem 1 PT Problem #1 Knowledge Deficit PT Goal 1 Goal / Goal Update The patient will be independent in a home exercise program. Target Visit 1 Progress Met
--- NOTE | 2025-08-08 15:30 | PTOPEVAL1 ---
Assessment and note entered by Dejah Logan, PT Evaluation Information Assessment Status Evaluation ICD-10 Condition Codes (PT) Pain in right shoulder M25.511 Onset 07/26/25 Subjective Information Shreyas Dyer reports he started having pain in his right shoulder about 1.5 weeks ago for unknown reasons. He denies a fall or other injury. The pain would radiate down to his elbow and it felt really tight on the front of his arm. He reports he golfs 7 days a week and sometimes twice a day so he hits a lot of golf balls. He also plays video games frequently. He is a and also does most of his own housework. He went to the doctor on 08/05/25 and was referred to get a x-ray and to PT. He put ice on his right shoulder that night and the next day he was doing something not very strenuous and he felt a pop in the front of right arm and then had a bulge on the front of his arm. He had extreme pain when the pop happened but now he does not have as much pain. He did have tightness in his arm prior to the pop and pain in his shoulder. Reported Pain Level Pain Score 1: Self Report Assessment PT Clinical Summary Shreyas Dyer presents with right shoulder and elbow pain that started 1.5 weeks ago for unknown reasons. He felt a pop in his right arm on 08/06/25 and now presents with a kadie deformity and bruising in his right bicep muscle. He has difficulty with bending his right elbow for long periods and is unable to play golf which he usually plays daily. He objectively demonstrates painful right elbow and shoulder AROM, decreased right elbow and shoulder strength, and tenderness on the right bicep. He was referred to an specialist physicians and given elbow and shoulder AROM exercises to perform independently until he can see her/him. Plan of Care Interventions Patient/Caregiver Education,Therapeutic Exercise, Self-Care/Home Management,Ultrasound PT Services Indicated No Treatment Frequency and 1 visit, pt referred to specialist physicians Duration These treatments will address the objective and functional deficits as defined above. The patient will be advanced safely and appropriately in order for the patient to progress towards his/her prior level of function. Additional exercises will be introduced and as well as a comprehensive home exercise program upon discharge, if needed, ?to ensure carryover of functional gains achieved in the clinic. This treatment plan has been reviewed and agreement upon by the patient.
== END 2025-08-08 22:00 | disposition home or self-care (01) ==
LOC: CHSPT 14:23
PROVIDERS: PCP Nurse Practitioner Family; Visit Provider Nurse Practitioner Family
DX: M25.511 Pain in right shoulder (principal)
CPT/HCPCS: 97110; 97161

== ENCOUNTER 2025-08-15 06:55 | Outpatient (CLI) | payer MEDICARE, SELFPAY ==
--- NOTE | ~2025-08-15 | MR_ITS ---
EXAMINATION: MR humerus RT wo con, MR shoulder RT wo con DATE: 08/15/2025 07:56 INDICATION: Long head biceps strain of muscle, fascia and tendon. TECHNIQUE: 1. Magnetic resonance imaging (MRI) of the right humerus was performed without intravenous contrast. Sequences included axial, sagittal and coronal T1- weighted FSE and fluid sensitive FSE STIR. 2. MRI of the right shoulder was performed without intravenous contrast. Sequences included axial PD-weighted FS FSE, coronal oblique PD-weighted FS FSE, coronal oblique T2-weighted FS FSE, sagittal PD-weighted FS FSE, and sagittal T1-weighted SE. COMPARISON: None. FINDINGS: There is complete tear and distal retraction of the long head biceps tendon with the torn tendon margin positioned approximately 15 cm distal to the level of the apex of the humeral head. The small residual frayed proximal tendon stump extends anteriorly from the glenohumeral anchor into the deep subscapular recess. There is a fluid collection which measures 18 cm craniocaudally, beginning at the intertubercular groove and extending around the retracted proximal myotendinous junction of the muscle belly with the collection measures up to 3.6 x 2.6 cm in maximal transaxial dimensions. There is mild feathery muscular edema in the retracted possibility long head of the biceps. The acromion undersurface is curved in morphology (type II) with small spur. Moderate supraspinatus and mild infraspinatus and subscapularis tendinopathy. Full-thickness tear extending 1.5 cm AP along the superior facet footplate of the supraspinatus tendon which is retracted approximately 2 cm medially. There is additional partial thickness tear involving the cephalad third of the lesser tuberosity footplate of the subscapularis tendon. The more peripheral left-sided portion of the cephalad third of the tendon remains intact and contiguous with the intact transverse humeral ligament. There are mild cystic and hypertrophic changes along the medial and lateral rims of the intertubercular groove. Re maining musculature of the right upper arm and shoulder girdle is normal as are the visualized portions of the remaining tendons. There is a smooth medially curving cleft of fluid extending between the superior labrum and the cartilage along the rim of the glenoid consistent with a normal sublabral sulcus. Mild glenohumeral osteoarthritis with partial-thickness cartilage loss with smooth chondral surface along the inferomedial aspect of the humeral head and with tiny marginal osteophytes along the inferior glenoid. Mild osteoarthritis at the right acromioclavicular joint and elbow. No joint effusions. No fractures or pathologic marrow replacing process. IMPRESSION: 1. Full-thickness tear and distal retraction of the long head biceps tendon. 2. Mild to moderate rotator cuff tendinopathy with full-thickness tear along the superior facet footplate of the supraspinatus tendon and small partial-thickness tear involving the cephalad third of the lesser tuberosity footplate of the subscapularis tendon. 3. Mild glenohumeral osteoarthritis with likely normal sublabral sulcus versus less likely SLAP tear at the superior glenoid labrum. Reviewed, dictated and finalized at location A. IMPRESSION: 1. Full-thickness tear and distal retraction of the long head biceps tendon. 2. Mild to moderate rotator cuff tendinopathy with full-thickness tear along th e superior facet footplate of the supraspinatus tendon and small partial-thickn ess tear involving the cephalad third of the lesser tuberosity footplate of the subscapularis tendon. 3. Mild glenohumeral osteoarthritis with likely normal sublabral sulcus versus less likely SLAP tear at the superior glenoid labrum.
== END 2025-08-15 06:56 | disposition home or self-care (01) ==
LOC: MICIMG 06:56
PROVIDERS: PCP Family Medicine; Visit Provider Nurse Practitioner Family
DX: S46.119A Strain of muscle, fascia and tendon of long head of biceps, unspecified arm, initial encounter (principal); X58.XXXA Exposure to other specified factors, initial encounter; M19.011 Primary osteoarthritis, right shoulder
CPT/HCPCS: 73218; 73221

== ENCOUNTER 2025-08-28 11:21 | Outpatient (CLI) | payer MEDICARE, SELFPAY ==
--- NOTE | ~2025-08-28 | XR_ITS ---
EXAMINATION: XR chest 2V, 08/28/2025 12:10 CDT HISTORY: Z01.818 - Encounter for other preprocedural examination COMPARISON: No comparisons available. Technique: 2 views obtained. Findings: The lungs are clear, no effusion. No pneumothorax. Heart is normal size. Mediastinal and hilar contours are within normal limits. Bony thorax no acute abnormality. Impression: No acute cardiopulmonary abnormality. Reviewed, dictated and finalized at location P. Impression: No acute cardiopulmonary abnormality.
--- NOTE | 2025-08-28 11:45 | ECG_ITS ---
Test Date: 2025-08-28 11:50:59 Measurements Intervals [place] Rate: 58 P: 53 CO: 164 QRS: 29 QRSD: 97 T: 51 QT: 404 QTc: 398 Interpretive Statements SINUS BRADYCARDIA BASELINE ARTIFACT- II, III, AVR, AVF, V3-V6 BORDERLINE ECG No previous ECG available for comparison Electronically Signed On 08-28-2025 12:26:39 CDT by Juan Carlos Frazier D.O.
[2025-08-28 11:58] LABS: Hematocrit 36.5 % (37.0-46.0); Hemoglobin 11.8 g/dL (12.4-15.3); Mean Corpuscular HGB Conc 32.3 g/dL (32-36); Mean Corpuscular Hemoglobin 31.0 pg (27.0-31.0); Mean Corpuscular Volume 95.8 fL (78.0-102.0); Platelet Count Result 212 K/mm3 (150-420); Red Blood Count 3.81 M/mm3 (4.70-6.10); White Blood Count 6.2 K/mm3 (4.8-10.8)
[2025-08-28 12:14] LABS: Alanine Aminotransferase 25 U/L (6-50); Albumin Level 4.5 g/dL (3.5-5.1); Alkaline Phosphatase 84 U/L (38-126); Anion Gap 11 mmol/L (4-12); Aspartate Amino Transferase 24 U/L (17-59); Bilirubin,Total 0.6 mg/dL (0.2-1.3); Blood Urea Nitrogen 19 mg/dL (9-20); Calcium 10.4 mg/dL (8.4-10.2); Carbon Dioxide 25 mmol/L (22-30); Chloride 109 mmol/L (98-107); Estimated Glomerular Filt Rate 50; Glucose 174 mg/dL (65-110); Osmolality Calculated 306 mOsm/kg (285-295); Potassium 4.8 mmol/L (3.4-5.0); Sodium 145 mmol/L (137-145); Total Protein 7.3 g/dL (6.3-8.2)
== END 2025-08-28 11:22 | disposition home or self-care (01) ==
LOC: CHSLAB 11:22
PROVIDERS: PCP Family Medicine; Visit Provider Nurse Practitioner Family
DX: Z01.818 Encounter for other preprocedural examination (principal); R00.1 Bradycardia, unspecified
CPT/HCPCS: 36415; 71046; 80053; 85027; 93005

== ENCOUNTER 2025-09-09 00:18 | Day surgery (SDC) | payer MEDICARE, SELFPAY ==
--- NOTE | 2025-08-29 10:26 | PC.NURSE ---
[facility] has started construction of its new state of the art ER which will open Spring 2026. With this, we anticipate parking may be a challenge for some our surgical patients and families. Parking spaces are limited but are available for all Surgical, obstetrics, and ER patients sharing this lot. If you arrive and find you are having a hard time finding a parking space, please note that we understand the challenges, please drive around the hospital and park near Hospital Entrance 1. When you enter this entrance, you can ask a volunteer to direct or take you back to the surgical waiting area to check in. We appreciate everyone?s understanding of these expected challenges while we build for your future. Report to the Outpatient Waiting Room, entrance under the green pavilion located off [address], at time _6 AM on date 09/09/25 . Planned Procedure Time: __7:30 AM .? Time changes happen often and if your time is changed the preop area will call you the afternoon before. - You and your visitor will be asked to self-screen and do not enter if you have any COVID symptoms. Please call surgeon if you need to reschedule. - A mask is optional within the hospital at this time. Patients may have clear liquids (water, carbonated beverages, clear teas, apple juice) until 3 hours prior to surgery( 4:30 AM) with a maximum of 20 ounces. - No food from midnight until time of surgery and no smoking, or chewing tobacco (or any form of nicotine). No chewing gum, candy or mints. Take only the following medications with a SIP of water on the morning of surgery: ____AMLODIPINE DO NOT STOP ANY OF YOUR OTHER PRESCRIPTION MEDICATIONS PRIOR TO SURGERY EXCEPT THE FOLLOWING Hold all vitamins and supplements for 3 days per anesthesiologist. Medications to discontinue per physician ____ASPIRIN /NAPROXEN PER DR GUTHRIE Date to take last dose Please no make-up, nail saudi arabian, hairspray, perfume, deodorant, or body powder the day of surgery.? No jewelry (including any body piercings) or valuables the day of surgery, leave them at home.? Please take a shower or bath the night before, or the morning of, surgery with an antibacterial soap.? Wear comfortable, loose fitting clothing.? Children are encouraged to wear pajamas. - Jewelry must be removed prior to entering the operating room.? Rings and piercings that are not removed may be cut off. - The hospital will not accept responsibility for valuables.? - Please leave all valuables, including medications, at home the day of surgery. If you are going home after surgery, a licensed motor vehicle escort driver must drive you home.? - NO public transportation without another adult if you receive anesthesia. - We recommend that an adult stay with you for 24 hours following discharge. - We also recommend that you do not drive, make important decision, drink alcoholic beverages, or take any drugs that were not prescribed by your health care provider for at least 24 hours after your discharge time. Follow any additional instructions given to you from your surgeon. Telephone instructions given to __PATIENT and asked if any additional questions and then verbalized understanding. Patient advised to call surgeon office or pre surgery nurse liaison [phone] if any additional questions.
[2025-08-29 10:49] VITALS: BMI 31.7
--- NOTE | 2025-09-05 07:00 | P.HP_ITS ---
H&P: HPI History of Present Illness Date/Time: 09/05/25 07:00 Chief Complaint: Patient has pain in right shoulder. His rotator cuff tear of the right shoulder. He has failed conservative treatment like to consider surgical intervention. Review of Systems Musculoskeletal: Musculoskeletal: Reports myalgias, Reports arthralgias, Reports joint swelling and Reports stiffness PMFSH Past Medical History Medical History Colon polyp Lymphoma CAD (coronary artery disease) Non-healing skin lesion Erectile dysfunction B-cell lymphoma Overweight DM2 (diabetes mellitus, type 2) Osteoarthritis BPH (benign prostatic hyperplasia) GERD (gastroesophageal reflux disease) Hypertension Hyperlipidemia Surgical History Surgical History History of coronary artery stent placement x1, 2021 History of right inguinal hernia History of laminectomy History of total right knee replacement (TKR) History of umbilical hernia repair Hx of cataract surgery Family History Family History Mother Family history of type 2 diabetes mellitus Family history of obesity Brother Family history of malignant neoplasm of bone Sister Family history of type 2 diabetes mellitus Father Alcoholism Son Myocardial infarction Other Diabetes mellitus Hypertension Social History Social History Smoking packs per day: 1 Smoking cigarettes per day: 20.0 Years smoked: 40 Smoking pack-years: 40.00 Smoking status: Former smoker Tobacco type: cigarettes Second hand tobacco smoke exposure: Yes Smoking end date: 11/21/99 Additional smoking assessment comments: smoked 1 PPD for over 38 years, quit 22 years ago Alcohol intake: current Drinks per week: 4 Alcohol use details: on rare occasion, less than 10 drinks in the last year Substance use: current Substance use type: marijuana Other substance usage details: Gummies Last use: 08/26/25 Lack of Transportation: No Lack of Food: Never True Current Housing: I Have Housing Concerned About Future Housing: No Difficulty Paying Gas/Electric Bills: No Difficulty Paying for Meds: No Currently Unemployed: No Education: High School Diploma/GED Difficulty w/ Childcare or Family Care: No Living arrangements: alone Additional living arrangements comments: . 3 adult children. 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 Gender identity (if verbalized by the patient): Male Spiritual care concerns: No Meds Home Medications and Allergies Home Medications ?Medication ?Instructions ?Recorded ?Confirmed ?Type blood sugar diagnostic (Contour #100 ea 02/01/2208/28 Rx Next Test Strips) aspirin 81 mg tablet 81 mg PO DAILY 03/01/2208/15 History acetaminophen 500 mg tablet 1,000 mg PO Q6H PRN Pain 0 02/14/24 08/29/25 History naproxen sodium 220 mg capsule 220 mg PO BID PRN Pain 02/22/24 08/29/25 History (Aleve) losartan 50 mg tablet See Rx Instructions .Route 1 12/12/23 08/29/25 Rx .COMPLEX #90 tabs simvastatin 40 mg tablet See Rx Instructions .Route 1 01/03/24 08/29/25 Rx .COMPLEX #90 tabs torsemide 20 mg tablet See Rx Instructions .Route 0 04/16/25 08/29/25 Rx .COMPLEX #90 tabs amlodipine 10 mg tablet See Rx Instructions .Route 0 07/11/25 08/29/25 Rx .COMPLEX #90 tabs metformin 1,000 mg tablet See Rx Instructions .Route 0 07/11/25 08/29/25 Rx .COMPLEX #180 tabs pantoprazole 40 mg tablet,delayed See Rx Instructions .Route 07/25/25 08/29/25 Rx release .COMPLEX #90 tabs finasteride 5 mg tablet See Rx Instructions .Route 0 08/12/25 08/29/25 Rx .COMPLEX #90 tabs tamsulosin 0.4 mg capsule See Rx Instructions .Route 0 08/13/25 08/29/25 Rx .COMPLEX #180 caps sildenafil 50 mg tablet See Rx Instructions .Route 1 08/29/25 Rx .COMPLEX #30 tabs Allergies Allergy/AdvReac Type Severity Reaction Status Date / Time No Known Allergies Allergy Verified 08/29/25 10:25 Exam Narrative: On exam he has pain with overhead motion her shoulder is weak in abduction external rotation is trouble getting his arm above the horizontal. Neurologically he is intact. He has impingement and give-way. Passively he has good motion. Eyes: General: appearance normal, both eyes and all related structures Neck: Neck: supple Resp: Effort & Inspection: normal respiratory effort Cardio: Rate: regular rate Rhythm: regular rhythm Radiology Reports: Comments: Magnetic Resonance Report Signed with Addenda Patient: Shreyas Dyer ADDENDUM ADDENDUM: Prior outside institution radiographs of the right shoulder performed on 08/05/2025 and submitted for comparison. Similar findings of mild glenohumeral and acromioclavicular osteoarthritis is seen on the radiographs with marginal osteophytes along the rim of the glenoid. Also redemonstrated is a small anterior subacromial spur. Addendum Dictated By: Sid Salinas MD Addendum Signed By: <Electronically signed by Sid Salinas MD in [place]> 09/03/25 1123 Addendum Cosigned By: DD/ TD/TT: / EXAMINATION: MR humerus RT wo con, MR shoulder RT wo con DATE: 08/15/2025 07:56 INDICATION: Long head biceps strain of muscle, fascia and tendon. TECHNIQUE: 1. Magnetic resonance imaging (MRI) of t he right humerus was performed without intravenous contrast. Sequences included axial, sagittal and coronal T1- weighted FSE and fluid sensitive FSE STIR. 2. MRI of the right shoulder was perform ed without intravenous contrast. Sequences included axial PD-weighted FS FSE, coronal oblique PD-weighted FS FSE, coronal oblique T2-weighted FS FSE, sagittal PD-weighted FS FSE, and sagittal T1-weighted SE. COMPARISON: None. FINDINGS: There is complete tear and distal retraction of the long head biceps tendon with the torn tendon margin positioned approximately 15 cm distal to the level of the apex of the humeral head. The small residual frayed proximal tendon stump extends anteriorly from the glenohumeral anchor into the deep subscapular recess. There is a fluid collection which measures 18 cm craniocaudally, beginning at the intertubercular groove and extending around the retracted proximal myotendinous junction of the muscle belly with the collection measures up to 3.6 x 2.6 cm in maximal transaxial dimensions. There is mild feathery muscular edema in the retracted possibility long head of the biceps. The acromion undersurface is curved in morphology (type II) with small spur. Moderate supraspinatus and mild infraspinatus and subscapularis tendinopathy. Full-thickness tear extending 1.5 cm AP along the superior facet footplate of the supraspinatus tendon which is retracted approximately 2 cm medially. There is additional partial thickness tear involving the cephalad third of the lesser tuberosity footplate of the subscapularis tendon. The more peripheral left-sided portion of the cephalad third of the tendon remains intact and contiguous with the intact transverse humeral ligament. There are mild cystic and hypertrophic changes along the medial and lateral rims of the intertubercular groove. Remaining musculature of the right upper arm and shoulder girdle is normal as are the visualized portions of the remaining tendons. There is a smooth medially curving cleft of fluid extending between the superior labrum and the cartilage along the rim of the glenoid consistent with a normal sublabral sulcus. Mild glenohumeral osteoarthritis with partial-thickness cartilage loss with smooth chondral surface along the inferomedial aspect of the humeral head and with tiny marginal osteophytes along the inferior glenoid. Mild osteoarthritis at the right acromioclavicular joint and elbow. No joint effusions. No fractures or pathologic marrow replacing process. IMPRESSION: 1. Full-thickness tear and distal retrac tion of the long head biceps tendon. 2. Mild to moderate rotator cuff tendino ancelmo with full-thickness tear along the superior facet footplate of the supraspinatus tendon and small partial-thickness tear involving the cephalad third of the lesser tuberosity footplate of the subscapularis tendon. 3. Mild glenohumeral osteoarthritis with likely normal sublabral sulcus versus less likely SLAP tear at the superior glenoid labrum. Abdomen X-Ray 08/20/20 Humerus MRI 08/15/25 Shoulder MRI 08/15/25 Lumbar Spine X-Ray 07/01/21 Outside Reference RAD Procedure 08/30/25 Assessment and Plan Assessment and plan (1) Rotator cuff tear, right: Code(s): M75.101 - Unspecified rotator cuff tear or rupture of right shoulder, not specified as traumatic Status: Acute Assessment and Plan: Patient has a rotator cuff tear of the right shoulder. He has failed conservative treatment. He would like to consider surgical intervention. I discussed the risks, benefits, limitations, and alternatives with patient in detail. He understands and agrees would like to proceed. Will proceed with arthroscopic evaluation of the shoulder open distal clavicle excision and rotator cuff repair plus or minus the tenodesis of the biceps tendon depending upon findings. (2) Tear of right biceps muscle: Code(s): S46.211A - Strain of muscle, fascia and tendon of other parts of biceps, right arm, initial encounter Status: Acute (3) Acromioclavicular arthrosis: Code(s): M19.019 - Primary osteoarthritis, unspecified shoulder Status: Acute
[2025-09-09] VITALS (8 sets, daily range): BP systolic 127–136; BP diastolic 65–90; PULSE 60–70; RESP 17–20; TEMP 36.1; O2SAT 96–98; BMI 32.1
--- NOTE | 2025-09-09 06:48 | WPDHPUPDATE1 ---
History and Physical Update Update Date/Time: 09/09/25 06:48 History and Physical has been reviewed, including an updated exam of the patient. There are NO changes in the patient's condition. Risks, benefits, and alternatives have been discussed and questions answered. Patient agrees to proceed with procedure.
[2025-09-09] MEDS: LACTATED RINGERS 1,000 ML 30 ML IV CONT ×2 (07:00→09:12)
[2025-09-09] MEDS: KETOROLAC 15 MG/ML VIAL (*BKC) IV PUSH (07:08)
[2025-09-09] MEDS: ACETAMINOPHEN 500 MG TABLET 1000 MG PO (07:09)
--- NOTE | 2025-09-09 07:09 | P.PNAN_ITS ---
Anes - Initial Pre Proc Eval Procedure: Operation Date: 09/09/25 07:30 Proposed Procedures p Right Shoulder Arthroscopy, Open Rotator Cuff Repair, Distal Clavicle Excision - Primo Gray MD Date/Time: 09/09/25 07:09 Surgeon: Primo Gray MD Pre Op Diagnosis: rt rot cuff tear, AC arthritis Patient Data Age: 79 Gender: M Height: 1.75 m Weight: 97.55 kg Allergies Allergy/AdvReac Type Severity Reaction Status Date / Time No Known Allergies Allergy Verified 09/09/25 07:14 Home Medications ?Medication ?Instructions ?Recorded ?Confirmed ?Type blood sugar diagnostic (Contour #100 ea 02/01/2208/28 Rx Next Test Strips) aspirin 81 mg tablet 81 mg PO DAILY 03/01/2208/15 History acetaminophen 500 mg tablet 1,000 mg PO Q6H PRN Pain 0 02/14/24 08/29/25 History naproxen sodium 220 mg capsule 220 mg PO BID PRN Pain 02/22/24 08/29/25 History (Aleve) losartan 50 mg tablet See Rx Instructions .Route 1 12/12/23 08/29/25 Rx .COMPLEX #90 tabs simvastatin 40 mg tablet See Rx Instructions .Route 1 01/03/24 08/29/25 Rx .COMPLEX #90 tabs torsemide 20 mg tablet See Rx Instructions .Route 0 04/16/25 08/29/25 Rx .COMPLEX #90 tabs amlodipine 10 mg tablet See Rx Instructions .Route 0 07/11/25 08/29/25 Rx .COMPLEX #90 tabs metformin 1,000 mg tablet See Rx Instructions .Route 0 07/11/25 08/29/25 Rx .COMPLEX #180 tabs pantoprazole 40 mg tablet,delayed See Rx Instructions .Route 07/25/25 08/29/25 Rx release .COMPLEX #90 tabs finasteride 5 mg tablet See Rx Instructions .Route 0 08/12/25 08/29/25 Rx .COMPLEX #90 tabs tamsulosin 0.4 mg capsule See Rx Instructions .Route 0 08/13/25 08/29/25 Rx .COMPLEX #180 caps sildenafil 50 mg tablet See Rx Instructions .Route 1 08/29/25 Rx .COMPLEX #30 tabs Patient hx anesthesia problems: none Family hx anesthesia problems: none Results Review: All pre-operative results and documents have been reviewed as part of the pre-operative evaluation. [facility] Past Medical History Medical History Colon polyp Lymphoma CAD (coronary artery disease) Non-healing skin lesion Erectile dysfunction B-cell lymphoma Overweight DM2 (diabetes mellitus, type 2) Osteoarthritis BPH (benign prostatic hyperplasia) GERD (gastroesophageal reflux disease) Hypertension Hyperlipidemia Surgical History Surgical History History of coronary artery stent placement x1, 2021 History of right inguinal hernia History of laminectomy History of total right knee replacement (TKR) History of umbilical hernia repair Hx of cataract surgery Family History Family History Mother Family history of type 2 diabetes mellitus Family history of obesity Brother Family history of malignant neoplasm of bone Sister Family history of type 2 diabetes mellitus Father Alcoholism Son Myocardial infarction Other Diabetes mellitus Hypertension Social History Social History Smoking packs per day: 1 Smoking cigarettes per day: 20.0 Years smoked: 40 Smoking pack-years: 40.00 Smoking status: Former smoker Tobacco type: cigarettes Second hand tobacco smoke exposure: Yes Smoking end date: 05/22/00 Additional smoking assessment comments: smoked 1 PPD for over 38 years, quit 22 years ago Alcohol intake: current Drinks per week: 4 Alcohol use details: on rare occasion, less than 10 drinks in the last year Substance use: current Substance use type: marijuana Other substance usage details: [place] Last use: 08/26/25 Lack of Transportation: No Lack of Food: Never True Current Housing: I Have Housing Concerned About Future Housing: No Difficulty Paying Gas/Electric Bills: No Difficulty Paying for Meds: No Currently Unemployed: No Education: High School Diploma/GED Difficulty w/ Childcare or Family Care: No Living arrangements: alone Additional living arrangements comments: . 3 adult children. 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 Gender identity (if verbalized by the patient): Male Spiritual care concerns: No Anes - Eval Final PreProcedure Day of Procedure 09/09/25 07:09 Patient weight: obese Heart: regular rate and rhythm Lungs: clear to auscultation Airway: Mallampati scale class II Neurological: alert and oriented Last oral intake: >/= 8 hours ASA classification: III Emergent: no Anesthetic plan: proceed Anesthesia type and monitoring: general ETT and standard monitoring Results Review: All pre-operative results and documents have been reviewed as part of the pre-op erative evaluation. Informed Consent: The patient's anesthetic plan and its attendant risks and benefits were discussed with the patient/family/POA. Questions were solicited and answers provided to the satisfaction of the patient/family/POA.
[2025-09-09] MEDS: ceFAZolin 2 GM in SODIUM CHLORIDE 0.9% IV 50 ML 100 ML IVPB (07:30)
[2025-09-09] MEDS: LIDO 1%/EPINEPHRINE 1:100,000 50 ML VIAL (08:04)
[2025-09-09] MEDS: EPINEPHrine HCL INJ 1 MG/ML AMPUL 2 MG IRRIGATION (08:06)
--- NOTE | 2025-09-09 08:44 | W.PM.PROC2 ---
Procedure Note - Detailed Date of Procedure 09/09/25 Pre-op Diagnosis RIGHT Rotator Cuff Tear AC arthritis Post-op Diagnosis Same Procedure Performed Arthroscopy shoulder. Arthroscopic acromioplasty. Open distal clavicle excision. Rotator cuff debridement repair. Surgeon Primo Gray MD [employer] Anesthesia General Findings Pain and Tearing of the rotator Cuff Description of Procedure Patient brought to the operative room #7. A general anesthetic was administered. The patient was placed in the beach chair position with the RIGHT shoulder exposed.? After sterile prep and drape, standard posterior and lateral portals were used for arthroscopy. The joint itself looked reasonably good the biceps tendon was intact.? There was fraying and tearing of the rotator cuff area in the supraspinatus tear region. This was gently debrided.? The subacromial space had an intense bursa, this was debrided with a shaver and acromioplasty performed arthroscopically.? The subacromial space was quite tight initially. I then proceeded to open the shoulder. A longitudinal incision made from the AC joint distalward over the shoulder.? Dissection carried down to the fascia. The fascia overlying the acromioclavicular joint was split. The AC joint found and a distal clavicle excision performed removing 3 to 4 millimeters of bone.? The edges beveled.? The deltoid was then split from the tip of the acromion. The remainder of the bursa was debrided.? The rotator cuff was torn in the supraspinatus and Subscapularis interval. The tear was very large about the size of a quarter. This was debrided and repaired to bone using #2 Ethibond suture.? The repair was augmented with a might take suture. At this point the deltoid was repaired to itself, the acromion and the trapezius with #2 Ethibond. The skin was closed with 2-0 Vicryl and leatha.? A sterile dressing was applied. The patient tolerated the procedure well and left the operating room satisfactory condition. Estimated Blood Loss 50 Drains No Packing No Pathology None sent Complications No immediate complications Condition Stable Disposition PACU [facility] Billing Surgery - Charge Forward: Surgery Billing ([id number] RTC Repair [id number] DCE)
--- NOTE | 2025-09-09 08:55 | WPDANESPNB ---
Anes - Peripheral Nerve Block Date/Time: 09/09/25 08:55 I have discussed with the patient/family/POA the placement of a peripheral nerve block for post-operative pain management, including associated risks, benefits, complications, and side effects. Alternative methods of post-operative analgesia were detailed. Questions were solicited and answers provided to the satisfaction of the patient/family/POA. Time-Out: A pre-procedural Time-Out was completed immediately before starting the procedure and confirmed: Patient Identification, Site, Procedure, Patient Position and the Availability of Requisite Equipment. Clinical Indications: Acute post-operative pain management requested by the operative surgeon. Nerve Block Insertion Note Anes-nerve block: interscalene right Patient position: supine Skin prep: chlorhexidine Needle: 22 gauge, stimulating, insulated echogenic needle. Needle length: 50 mm Technique: ultrasound Injectate: bupivacaine 0.5% with epi 5 mcg/ml (20cc- no epi) Observations: tolerated well Complications: none Procedure start time:: 724 Procedure end time:: 727
== END 2025-09-09 11:04 | disposition home or self-care (01) ==
PROVIDERS: PCP Family Medicine; Visit Provider Orthopaedic Surgery
PROC: (CPT 29805; principal; 2025-09-09 07:30)
DX: M75.101 Unspecified rotator cuff tear or rupture of right shoulder, not specified as traumatic (principal); M19.011 Primary osteoarthritis, right shoulder; G89.18 Other acute postprocedural pain; E11.9 Type 2 diabetes mellitus without complications; Z87.891 Personal history of nicotine dependence; F12.90 Cannabis use, unspecified, uncomplicated; E66.9 Obesity, unspecified; Z68.32 Body mass index [BMI] 32.0-32.9, adult
CPT/HCPCS: 23412; 23120; 64415; 82948; J0690; A9270; C1713; J0166; J1100; J1885; J2004; J2405; J2704; J3010; J7120